=== PATIENT | female | born 1960 | race Caucasian/White ===

== ENCOUNTER 2022-07-19 16:28 | Inpatient (IN) | payer OTHER ==
--- OUTSIDE RECORDS SUMMARY | 2022-07-19 16:33 | XMS REPORT | Continuity of Care Document ---
:1960 Author Organization [facility] t Address [address] [place] [address] [address] [place] [address] Care Team Providers Name Role Phone Brock Toribio DO Primary Care Physician ARNEL GILL Attending Clinician Unavailable ARNEL GILL Attending Clinician Unavailable CORONA CASEY K.HJose Roberto Attending Clinician Unavailable Corona Casey MDHJose Roberto Attending Clinician Arnel Gill DO Attending Clinician GRACE WEBB Attending Clinician Unavailable Grace Webb MD Attending Clinician HERBERT RYDER Attending Clinician Unavailable CHRISTINE MOSES Attending Clinician Unavailable Christine Moses MD Attending Clinician Doctor Unassigned, [place] Attending Clinician Unavailable Brock Toribio DO Attending Clinician BROCK TORIBIO Attending Clinician Unavailable Pob, [facility] Main Attending Clinician Unavailable Manuel Barber MD Attending Clinician Shamika Crespo MA Attending Clinician Unavailable Renee Nichole Attending Clinician Unavailable 2, [facility] Attending Clinician Unavailable Therapist, [facility] Pulmonary Attending Clinician Unavailable Ganesh Hooker MD Attending Clinician GANESH HOOKER Attending Clinician Unavailable JESUS CLIFTON Attending Clinician Unavailable Herbert Ryder DO Attending Clinician Only, [facility] Test Attending Clinician Unavailable GRACE WEBB Admitting Clinician Unavailable CHRISTINE MOSES Admitting Clinician Unavailable Payers Payer Name Policy Type Policy Number Effective Date Expiration Date Rigoberto [facility] DUAL [id number] 2021 00:00:00 COMP HMO D SNP [facility] KALPESH [id number] 2016 00:00:00 PLUS Problems Condition Condition Condition Status Onset Resolution Last Treating Co mments Source Name Details Category Date Date Treatment Clinician Date Multifocal Multifocal Disease Active U nivers pneumonia pneumonia 4-28 ity of 00:00: [place] 00 Medical Branch Obesity Obesity Disease Active Univers (BMI (BMI 4-28 ity of 30-39.9) 30-39.9) 00:00: [place] 00 Medical Branch Pneumonia Pneumonia Disease Active Uni vers 4-20 ity of 00:00: [address] Allergies, Adverse Reactions, Alerts Allergy Allergy Status Severity Reaction(s) Onset Inactive Treating Comm ents Source Name Type Date Date Clinician NO KNOWN Drug Active Univers ALLERGIE Class ity of S [facility] Social History Social Habit Start Date Stop Date Quantity Comments Source History of tobacco Cigarette Smoker University of use [facility] Exposure to 2022-03-17 2022-03-27 Not sure [facility] SARS-CoV-2 (event) 00:00:00 13:42:00 [facility] Cigarettes smoked 2022-03-27 2022-03-27 Univers ity of current (pack per 00:00:00 00:00:00 ) - Reported Branch Cigarette 2022-03-27 2022-03-27 University of pack-years 00:00:00 00:00:00 [facility] Tobacco use and 2022-03-27 2022-03-27 Smokeless Universit y of exposure 00:00:00 00:00:00 tobacco non-user [facility] dical [place] Alcohol intake 2022-03-27 2022-03-27 Current University of 00:00:00 00:00:00 non-drinker of [facility] alcohol Branch (finding) Sex Ass[birth year] Universit y of 00:00:00 00:00:00 [facility] Smoking Status Start Date Stop Date Source Ex-smoker 2022-03-27 00:00:00 2022-03-27 00:00:00 [facility] Medical Branch Medications Ordered Filled Start Stop Current Ordering Indication Dosage Frequency Signature Comments Components Source Medication Medication Date Date Medication? Clinician (SIG) Name Name TINY 2021-05 Yes [id number] INHALE 1 Uni vers ELLIPTA 2-07 PUFF BY ity of 62.5-25 00:00: MOUTH [place] mcg/actuati 00 DAILY Medical on Branch inhalation disk Levothyroxi 2021-05 Yes 150ug Take 150 U nivers ne 150 mcg 1-23 mcg by ity of capsule 14:23: mouth [place] 49 daily. Medical Branch Levothyroxi 2021-05 Yes 150ug Take 150 U nivers ne 150 mcg 1-23 mcg by ity of capsule 14:23: mouth [place] 49 daily. Medical Branch Levothyroxi 2021-05 Yes 150ug Take 150 U nivers ne 150 mcg 1-23 mcg by ity of capsule 14:23: mouth [place] 49 daily. Medical Branch Levothyroxi 2021-05 Yes 150ug Take 150 U nivers ne 150 mcg 1-23 mcg by ity of capsule 14:23: mouth [place] 49 daily. Medical Branch losartan 50 2021-05 Yes [id number] 50mg Take 1 Univers mg tablet 1-23 tablet by ity o f 00:00: mouth in [place] 00 the Medical morning Branch and 1 tablet in the evening. bisoprolol 2021-05 Yes [id number] 5mg Take 1 U nivers 5 mg tablet 1-23 tablet by ity of 00:00: mouth in [place] 00 the Medical morning. Branch losartan 50 2021-05 Yes [id number] 50mg Take 1 Univers mg tablet 1-23 tablet by ity o f 00:00: mouth in [place] 00 the Medical morning Branch and 1 tablet in the evening. bisoprolol 2021-05 Yes [id number] 5mg Take 1 U nivers 5 mg tablet 1-23 tablet by ity of 00:00: mouth in [place] 00 the Medical morning. Branch losartan 50 2021-05 Yes [id number] 50mg Take 1 Univers mg tablet 1-23 tablet by ity o f 00:00: mouth in [place] 00 the Medical morning Branch and 1 tablet in the evening. bisoprolol 2021-05 Yes [id number] 5mg Take 1 U nivers 5 mg tablet 1-23 tablet by ity of 00:00: mouth in [place] 00 the Medical morning. Branch losartan 50 2021-05 Yes [id number] 50mg Take 1 Univers mg tablet 1-23 tablet by ity o f 00:00: mouth in [place] 00 the Medical morning Branch and 1 tablet in the evening. bisoprolol 2021-05 Yes [id number] 5mg Take 1 U nivers 5 mg tablet 1-23 tablet by ity of 00:00: mouth in [place] 00 the Medical morning. Branch losartan 50 2021-05 Yes [id number] TAKE 1 Univers mg tablet 0-24 TABLET BY ity o f 00:00: MOUTH [place] 00 TWICE Medical DAILY Branch losartan 50 2021-05 Yes [id number] TAKE 1 Univers mg tablet 0-24 TABLET BY ity o f 00:00: MOUTH [place] 00 TWICE Medical DAILY Branch losartan 50 2021-05 Yes [id number] TAKE 1 Univers mg tablet 0-24 TABLET BY ity o f 00:00: MOUTH [place] TWICE Medical DAILY Branch losartan 50 2021-05- No [id number] TAKE 1 Univers mg tablet 0-24 11-23 TABLET BY ity of 00:00: 00:00 MOUTH [place] 00 :00 TWICE Medical DAILY Branch losartan 50 2021-05- No [id number] TAKE 1 Univers mg tablet 0-24 11-23 TABLET BY ity of 00:00: 00:00 MOUTH [place] 00 :00 TWICE Medical DAILY Branch bisoprolol 2021-05 Yes [id number] 5mg TAKE 1 U nivers 5 mg tablet 0-12 TABLET BY ity of 00:00: [facility] DAILY Medical Branch bisoprolol 2021-05 Yes [id number] 5mg TAKE 1 U nivers 5 mg tablet 0-12 TABLET BY ity of 00:00: [facility] 00 DAILY Medical Branch bisoprolol 2021-05 Yes [id number] 5mg TAKE 1 U nivers 5 mg tablet 0-12 TABLET BY ity of 00:00: [facility] 00 DAILY Medical Branch bisoprolol 2021-05 Yes [id number] 5mg TAKE 1 U nivers 5 mg tablet 0-12 TABLET BY ity of 00:00: [facility] 00 DAILY Medical Branch bisoprolol 2021-05 Yes [id number] 5mg TAKE 1 U nivers 5 mg tablet 0-12 TABLET BY ity of 00:00: [facility] 00 DAILY Medical Branch bisoprolol 2021-2021- No [id number] 5mg TAKE 1 Univers 5 mg tablet 003-27 TABLET BY it y of 00:00: 00:00 MOUTH [place] 00 :00 DAILY Medical Branch bisoprolol 2021-2021- No [id number] 5mg TAKE 1 Univers 5 mg tablet 003-27 TABLET BY it y of 00:00: 00:00 MOUTH [place] 00 :00 DAILY Medical Branch Magnesium 2021-0 Yes TAKE 1 Univer s Oxide 500 8-31 TABLET BY ity o f mg Tab 00:00: MOUTH EVERY Medical NIGHT Branch Magnesium 2021-0 Yes TAKE 1 Univer s Oxide 500 8-31 TABLET BY ity o f mg Tab 00:00: MOUTH EVERY Medical NIGHT Branch Magnesium 2-0 Yes TAKE 1 Univer s Oxide 500 8-31 TABLET BY ity o f mg Tab 00:00: MOUTH EVERY Medical NIGHT Branch Magnesium 2-0 Yes TAKE 1 Univer s Oxide 500 8-31 TABLET BY ity o f mg Tab 00:00: MOUTH EVERY Medical NIGHT Branch ALBUTEROL 0 Yes [id number] INHALE 2 Univers 90 7-27 PUFFS BY ity of mcg/actuati 00:00: MOUTH on inhaler 00 EVERY 6 Medica l HOURS Branch NEEDED FOR WHEEZING OR SHORTNESS OF BREATH ALBUTEROL Yes [id number] INHALE 2 Univers 90 7-27 PUFFS BY ity of mcg/actuati 00:00: MOUTH on inhaler 00 EVERY 6 Medica l HOURS Branch NEEDED FOR WHEEZING OR SHORTNESS OF BREATH ALBUTEROL Yes [id number] INHALE 2 Univers 90 7-27 PUFFS BY ity of mcg/actuati 00:00: MOUTH on inhaler 00 EVERY 6 Medica l HOURS Branch NEEDED FOR WHEEZING OR SHORTNESS OF BREATH ALBUTEROL Yes [id number] INHALE 2 Univers 90 7-27 PUFFS BY ity of mcg/actuati 00:00: MOUTH [place] on inhaler 00 EVERY 6 Medica l HOURS Branch NEEDED FOR WHEEZING OR SHORTNESS OF BREATH ALBUTEROL Yes [id number] INHALE 2 Univers 90 7-27 PUFFS BY ity of mcg/actuati 00:00: MOUTH [place] on inhaler 00 EVERY 6 Medica l HOURS Branch NEEDED FOR WHEEZING OR SHORTNESS OF BREATH ALBUTEROL Yes [id number] INHALE 2 Univers 90 7-27 PUFFS BY ity of mcg/actuati 00:00: MOUTH [place] on inhaler 00 EVERY 6 Medica l HOURS Branch NEEDED FOR WHEEZING OR SHORTNESS OF BREATH ALBUTEROL Yes [id number] INHALE 2 Univers 90 7-27 PUFFS BY ity of mcg/actuati 00:00: MOUTH [place] on inhaler 00 EVERY 6 Medica l HOURS Branch NEEDED FOR WHEEZING OR SHORTNESS OF BREATH ALBUTEROL Yes [id number] INHALE 2 Univers 90 7-27 PUFFS BY ity of mcg/actuati 00:00: MOUTH [place] on inhaler 00 EVERY 6 Medica l HOURS Branch NEEDED FOR WHEEZING OR SHORTNESS OF BREATH ALBUTEROL Yes [id number] INHALE 2 Univers 90 7-27 PUFFS BY ity of mcg/actuati 00:00: MOUTH [place] on inhaler 00 EVERY 6 Medica l HOURS Branch NEEDED FOR WHEEZING OR SHORTNESS OF BREATH ALBUTEROL Yes [id number] INHALE 2 Univers 90 7-27 PUFFS BY ity of mcg/actuati 00:00: MOUTH [place] on inhaler 00 EVERY 6 Medica l HOURS Branch NEEDED FOR WHEEZING OR SHORTNESS OF BREATH BISOPROLOL Yes [id number] 5mg TAKE 1 U nivers 5 mg tablet 4-19 TABLET BY ity of 00:00: MOUTH 00 DAILY Medical Branch BISOPROLOL 2021-0 2021- No [id number] 5mg TAKE 1 Univers 5 mg tablet 4-19 10-12 TABLET BY it y of 00:00: 00:00 MOUTH [place] 00 :00 DAILY Medical Branch LOSARTAN 50 2021-0 Yes TAKE 1 Univ ers mg tablet 3-14 TABLET BY ity o f 00:00: MOUTH 00 TWICE Medical DAILY Branch LOSARTAN 50 2021-0 Yes TAKE 1 Univ ers mg tablet 3-14 TABLET BY ity o f 00:00: MOUTH 00 TWICE Medical DAILY Branch LOSARTAN 50 2021-0 Yes TAKE 1 Univ ers mg tablet 3-14 TABLET BY ity o f 00:00: MOUTH TWICE Medical DAILY Branch LOSARTAN 50 2021-0 2022- No TAKE 1 Uni vers mg tablet 3-14 10-24 TABLET BY ity of 00:00: 00:00 MOUTH [place] 00 :00 TWICE Medical DAILY Branch ANORO 2020- Yes [id number] INHALE 1 Uni vers ELLIPTA 1-17 PUFF BY ity of 62.5-25 00:00: MOUTH [place] mcg/actuati 00 DAILY Medical on Branch inhalation disk ANORO 2020-05 Yes [id number] INHALE 1 Uni vers ELLIPTA 1-17 PUFF BY ity of 62.5-25 00:00: MOUTH [place] mcg/actuati 00 DAILY Medical on Branch inhalation disk ANORO 2020-05 Yes [id number] INHALE 1 Uni vers ELLIPTA 1-17 PUFF BY ity of 62.5-25 00:00: MOUTH [place] mcg/actuati 00 DAILY Medical on Branch inhalation disk ANORO 2020-05 Yes [id number] INHALE 1 Uni vers ELLIPTA 1-17 PUFF BY ity of 62.5-25 00:00: MOUTH [place] mcg/actuati 00 DAILY Medical on Branch inhalation disk ANORO 2020-05 Yes [id number] INHALE 1 Uni vers ELLIPTA 1-17 PUFF BY ity of 62.5-25 00:00: MOUTH [place] mcg/actuati 00 DAILY Medical on Branch inhalation disk ANORO 2020-05 Yes [id number] INHALE 1 Uni vers ELLIPTA 1-17 PUFF BY ity of 62.5-25 00:00: MOUTH [place] mcg/actuati 00 DAILY Medical on Branch inhalation disk ANORO 2020- Yes [id number] INHALE 1 Uni vers ELLIPTA 1-17 PUFF BY ity of 62.5-25 00:00: MOUTH [place] mcg/actuati 00 DAILY Medical on Branch inhalation disk ANORO 2020-05 Yes [id number] INHALE 1 Uni vers ELLIPTA 1-17 PUFF BY ity of 62.5-25 00:00: MOUTH [place] mcg/actuati 00 DAILY Medical on Branch inhalation disk ANORO 2020-2021- No [id number] INHALE 1 Un [place] ELLIPTA 1-17 12-06 PUFF BY ity of 62.5-25 00:00: 00:00 MOUTH [place] mcg/actuati 00 :00 DAILY Medical on Branch inhalation disk ANORO 2020-05- No [id number] INHALE 1 Un [place] ELLIPTA 1-17 12-06 PUFF BY ity of 62.5-25 00:00: 00:00 MOUTH [place] mcg/actuati 00 :00 DAILY Medical on Branch inhalation disk ANORO 2020-05- No [id number] INHALE 1 Un [place] ELLIPTA 1-17 12-06 PUFF BY ity of 62.5-25 00:00: 00:00 MOUTH [place] mcg/actuati 00 :00 DAILY Medical on Branch inhalation disk bisoprolol 2020-05- No [id number] 5mg Take 1 Univers 5 mg tablet 0-29 04-19 tablet by it y of 00:00: 00:00 mouth [place] 00 :00 daily. Medical Branch losartan 50 2021- No 50mg Take 1 Uni vers mg tablet 01-15-14 tablet by ity of 00:00: 00:00 mouth 2 [place] 00 :00 (two) Medical times Branch daily. metFORMIN Yes 500mg Take 500 Uni vers 500 mg 8-19 mg by ity of tablet 13:54: mouth [place] daily. Medical Branch rosuvastati Yes 10mg Take 10 mg Univers n 10 mg 8-19 by mouth ity of tablet 13:54: at [place] [address] bedtime. Medical Branch Levothyroxi Yes 150ug Take 150 U nivers ne 150 mcg 8-19 mcg by ity of capsule 13:54: mouth [place] daily. Medical Branch buprenorphi Yes 8mg Place 8 mg Univers ne-naloxone 8-19 under the ity of (SUBOXONE) 13:54: tongue 2 [place] as 8-2 mg 01 (two) Medical sublingual times Branch film daily. aspirin 81 Yes 81mg Take 81 mg U nivers mg chewable 8-19 by mouth ity of tablet 13:54: daily. Medical Branch metFORMIN Yes 500mg Take 500 Uni vers 500 mg 8-19 mg by ity of tablet 13:54: mouth [place] daily. Medical Branch rosuvastati Yes 10mg Take 10 mg Univers n 10 mg 8-19 by mouth ity of tablet 13:54: at [place] 01 bedtime. Medical Branch Levothyroxi Yes 150ug Take 150 U nivers ne 150 mcg 8-19 mcg by ity of capsule 13:54: mouth [place] daily. Medical Branch buprenorphi 2021-[address] 8 mg Univers ne-naloxone 8-19 under the ity of (SUBOXONE) 13:54: tongue 2 [place] 8-2 mg (two) Medical sublingual times Branch film daily. aspirin 81 0 Yes 81mg Take 81 mg U nivers mg chewable 8-19 by mouth ity of tablet 13:54: daily. Medical Branch metFORMIN 0 Yes 500mg Take 500 Uni vers 500 mg 8-19 mg by ity of tablet 13:54: mouth [place] 01 daily. Medical Branch rosuvastati 0 Yes 10mg Take 10 mg Univers n 10 mg 8-19 by mouth ity of tablet 13:54: at [place] 01 bedtime. Medical Branch Levothyroxi 0 Yes 150ug Take 150 U nivers ne 150 mcg 8-19 mcg by ity of capsule 13:54: mouth [place] 01 daily. Medical Branch buprenorphi Yes 8mg Place 8 mg Univers ne-naloxone 8-19 under the ity of (SUBOXONE) 13:54: tongue 2 [place] as 8-2 mg (two) Medical sublingual times Branch film daily. aspirin 81 0 Yes 81mg Take 81 mg U nivers mg chewable 8-19 by mouth ity of tablet 13:54: daily. Medical Branch metFORMIN 0 Yes 500mg Take 500 Uni vers 500 mg 8-19 mg by ity of tablet 13:54: mouth [place] 01 daily. Medical Branch rosuvastati 0 Yes 10mg Take 10 mg Univers n 10 mg 8-19 by mouth ity of tablet 13:54: at [place] 01 bedtime. Medical Branch Levothyroxi 0 Yes 150ug Take 150 U nivers ne 150 mcg 8-19 mcg by ity of capsule 13:54: mouth [place] 01 daily. Medical Branch buprenorphi [address] 8 mg Univers ne-naloxone 8-19 under the ity of (SUBOXONE) 13:54: tongue 2 [place] as 8-2 mg (two) Medical sublingual times Branch film daily. aspirin 81 0 Yes 81mg Take 81 mg U nivers mg chewable 8-19 by mouth ity of tablet 13:54: daily. Medical Branch metFORMIN 0 Yes 500mg Take 500 Uni vers 500 mg 8-19 mg by ity of tablet 13:54: mouth [place] 01 daily. Medical Branch rosuvastati Yes 10mg Take 10 mg Univers n 10 mg 8-19 by mouth ity of tablet 13:54: at [place] 01 bedtime. Medical Branch Levothyroxi Yes 150ug Take 150 U nivers ne 150 mcg 8-19 mcg by ity of capsule 13:54: mouth [place] 01 daily. Medical Branch buprenorphi Yes 8mg Place 8 mg Univers ne-naloxone 8-19 under the ity of (SUBOXONE) 13:54: tongue 2 [place] as 8-2 mg 01 (two) Medical sublingual times Branch film daily. aspirin 81 0 Yes 81mg Take 81 mg U nivers mg chewable 8-19 by mouth ity of tablet 13:54: daily. Medical Branch metFORMIN Yes 500mg Take 500 Uni vers 500 mg 8-19 mg by ity of tablet 13:54: mouth [place] 01 daily. Medical Branch rosuvastati Yes 10mg Take 10 mg Univers n 10 mg 8-19 by mouth ity of tablet 13:54: at [place] 01 bedtime. Medical Branch Levothyroxi Yes 150ug Take 150 U nivers ne 150 mcg 8-19 mcg by ity of capsule 13:54: mouth [place] 01 daily. Medical Branch buprenorphi Yes 8mg Place 8 mg Univers ne-naloxone 8-19 under the ity of (SUBOXONE) 13:54: tongue 2 [place] as 8-2 mg (two) Medical sublingual times Branch film daily. aspirin 81 0 Yes 81mg Take 81 mg U nivers mg chewable 8-19 by mouth ity of tablet 13:54: daily. Medical Branch metFORMIN Yes 500mg Take 500 Uni vers 500 mg 8-19 mg by ity of tablet 13:54: mouth [place] 01 daily. Medical Branch rosuvastati 0 Yes 10mg Take 10 mg Univers n 10 mg 8-19 by mouth ity of tablet 13:54: at [place] 01 bedtime. Medical Branch Levothyroxi Yes 150ug Take 150 U nivers ne 150 mcg 8-19 mcg by ity of capsule 13:54: mouth [place] 01 daily. Medical Branch buprenorphi [address] 8 mg Univers ne-naloxone 8-19 under the ity of (SUBOXONE) 13:54: tongue 2 [place] as 8-2 mg 01 (two) Medical sublingual times Branch film daily. aspirin 81 0 Yes 81mg Take 81 mg U nivers mg chewable 8-19 by mouth ity of tablet 13:54: daily. Medical Branch metFORMIN 0 Yes 500mg Take 500 Uni vers 500 mg 8-19 mg by ity of tablet 13:54: mouth [place] 01 daily. Medical Branch rosuvastati 0 Yes 10mg Take 10 mg Univers n 10 mg 8-19 by mouth ity of tablet 13:54: at [place] 01 bedtime. Medical Branch buprenorphi [address] 8 mg Univers ne-naloxone 8-19 under the ity of (SUBOXONE) 13:54: tongue 2 [place] as 8-2 mg 01 (two) Medical sublingual times Branch film daily. aspirin 81 0 Yes 81mg Take 81 mg U nivers mg chewable 8-19 by mouth ity of tablet 13:54: daily. Medical Branch metFORMIN 0 Yes 500mg Take 500 Uni vers 500 mg 8-19 mg by ity of tablet 13:54: mouth [place] 01 daily. Medical Branch rosuvastati 0 Yes 10mg Take 10 mg Univers n 10 mg 8-19 by mouth ity of tablet 13:54: at [place] 01 bedtime. Medical Branch buprenorphi [address] 8 mg Univers ne-naloxone 8-19 under the ity of (SUBOXONE) 13:54: tongue 2 [place] as 8-2 mg 01 (two) Medical sublingual times Branch film daily. aspirin 81 0 Yes 81mg Take 81 mg U nivers mg chewable 8-19 by mouth ity of tablet 13:54: daily. Medical Branch metFORMIN 0 Yes 500mg Take 500 Uni vers 500 mg 8-19 mg by ity of tablet 13:54: mouth [place] 01 daily. Medical Branch rosuvastati 0 Yes 10mg Take 10 mg Univers n 10 mg 8-19 by mouth ity of tablet 13:54: at [place] 01 bedtime. Medical Branch buprenorphi Yes 8mg Place 8 mg Univers ne-naloxone 8-19 under the ity of (SUBOXONE) 13:54: tongue 2 [place] as 8-2 mg (two) Medical sublingual times Branch film daily. aspirin 81 0 Yes 81mg Take 81 mg U nivers mg chewable 8-19 by mouth ity of tablet 13:54: daily. Medical Branch metFORMIN 0 Yes 500mg Take 500 Uni vers 500 mg 8-19 mg by ity of tablet 13:54: mouth [place] 01 daily. Medical Branch rosuvastati Yes 10mg Take 10 mg Univers n 10 mg 8-19 by mouth ity of tablet 13:54: at [place] bedtime. Medical Branch buprenorphi Yes 8mg Place 8 mg Univers ne-naloxone 8-19 under the ity of (SUBOXONE) 13:54: tongue 2 [place] as 8-2 mg (two) Medical sublingual times Branch film daily. aspirin 81 0 Yes 81mg Take 81 mg U nivers mg chewable 8-19 by mouth ity of tablet 13:54: daily. Medical Branch Cholecalcif Yes Take by Uni vers sowmya, 5-06 mouth. ity of Vitamin D3, 13:49: [place] ,000 unit 27 Medical capsule Branch Cholecalcif Yes Take by Uni vers sowmya, 5-06 mouth. ity of Vitamin D3, 13:49: [place] ,000 unit 27 Medical capsule Branch Cholecalcif 0 Yes Take by Uni vers sowmya, 5-06 mouth. ity of Vitamin D3, 13:49: [place] 5,000 unit 27 Medical capsule Branch Cholecalcif 0 Yes Take by Uni vers sowmya, 5-06 mouth. ity of Vitamin D3, 08:49: [place] 5,000 unit 27 Medical capsule Branch Cholecalcif 0 Yes Take by Uni vers sowmya, 5-06 mouth. ity of Vitamin D3, 08:49: [place] 5,000 unit 27 Medical capsule Branch Cholecalcif 0 Yes Take by Uni vers sowmya, 5-06 mouth. ity of Vitamin D3, 08:49: [place] 5,000 unit 27 Medical capsule Branch Cholecalcif 0 Yes Take by Uni vers sowmya, 5-06 mouth. ity of Vitamin D3, 08:49: [place] 5,000 unit 27 Medical capsule Branch Cholecalcif 0 Yes Take by Uni vers sowmya, 5-06 mouth. ity of Vitamin D3, 08:49: [place] 5,000 unit 27 Medical capsule Branch Cholecalcif 0 Yes Take by Uni vers sowmya, 5-06 mouth. ity of Vitamin D3, 08:49: [place] 5,000 unit 27 Medical capsule Branch Cholecalcif 0 Yes Take by Uni vers sowmya, 5-06 mouth. ity of Vitamin D3, 08:49: [place] 5,000 unit 27 Medical capsule Branch Cholecalcif 0 Yes Take by Uni vers sowmya, 5-06 mouth. ity of Vitamin D3, 08:49: [place] 5,000 unit 27 Medical capsule Branch Cholecalcif 0 Yes Take by Uni vers sowmya, 5-06 mouth. ity of Vitamin D3, 08:49: [place] 5,000 unit 27 Medical capsule Branch Cholecalcif 0 Yes Take by Uni vers sowmya, 5-06 mouth. ity of Vitamin D3, 08:49: [place] 5,000 unit 27 Medical capsule Branch Cholecalcif 0 Yes Take by Uni vers sowmya, 5-06 mouth. ity of Vitamin D3, 08:49: [place] 5,000 unit 27 Medical capsule Branch albuterol 0 Yes Stage 4 2{puff} Inhale 2 Univers (PROAIR 3-25 very severe Puffs ity of HFA) 90 00:00: [place] by every 6 [place] mcg/actuati 00 GOLD (six) Medical on inhaler classificat hours as Branch ion needed for Wheezing or Shortness of Breath. albuterol 2020-0 Yes Stage 4 2{puff} Inhale 2 Univers (PROAIR 3-25 very severe Puffs ity of HFA) 90 00:00: [place] by every 6 [place] mcg/actuati 00 GOLD (six) Medical on inhaler classificat hours as Branch ion needed for Wheezing or Shortness of Breath. albuterol 2020-0 Yes Stage 4 2{puff} Inhale 2 Univers (PROAIR 3-25 very severe Puffs ity of HFA) 90 00:00: [place] by every 6 [place] mcg/actuati 00 GOLD (six) Medical on inhaler classificat hours as Branch ion needed for Wheezing or Shortness of Breath. albuterol 2021- No [id number] 2{puff} Inhale 2 Univers (PROAIR 3-25 07-27 Puffs ity of HFA) 90 00:00: 00:00 every 6 [place] mcg/actuati 00 :00 (six) Medical on inhaler hours as Branc h needed for Wheezing or Shortness of Breath. umeclidiniu 2019-05 Yes Stage 4 1{puff} Inhale 1 Univers m-vilantero 1-12 very severe Puff i ty of L (ANORO 00:00: [place] by daily. [place] ELLIPTA) 00 GOLD Medical 62.5-25 classificat Branc h mcg/actuati ion on inhalation disk umeclidiniu 2019-05 Yes Stage 4 1{puff} Inhale 1 Univers m-vilantero 1-12 very severe Puff i ty of L (AN[place]O 00:00: [place] daily. [place] ELLIPTA) 00 GOLD Medical 62.5-25 classificat Branc h mcg/actuati ion on inhalation disk umeclidiniu 2019-05 Yes Stage 4 1{puff} Inhale 1 Univers m-vilantero 1-12 very severe Puff i ty of L (AN[place]O 00:00: [place] daily. [place] ELLIPTA) 00 GOLD Medical 62.5-25 classificat Branc h mcg/actuati ion on inhalation disk metFORMIN 2020-0 Yes 500mg Take 500 Uni vers 500 mg 7-23 mg by ity of tablet 17:52: mouth 2 [place] 10 (two) Medical times Branch daily with meals. rosuvastati 2020-0 Yes 10mg Take 10 mg Univers n 10 mg 7-23 by mouth ity of tablet 17:52: at [place] 10 bedtime. Medical Branch metoprolol 2020-0 Yes 25mg Take 25 mg U nivers tartrate 25 7-23 by mouth 2 it y of mg tablet 17:52: (two) [place] 10 times Medical daily. Branch Levothyroxi 2020-0 Yes 150ug Take 150 U nivers ne 150 mcg 7-23 mcg by ity of capsule 17:52: mouth [place] 10 daily. Medical Branch aspirin 81 2020-0 Yes 81mg Take 81 mg U nivers mg chewable 7-23 by mouth ity of tablet 17:52: daily. [place] [address] Medical Branch metFORMIN 2020-0 Yes 500mg Take 500 Uni vers 500 mg 7-23 mg by ity of tablet 17:52: mouth 2 [place] 10 (two) Medical times Branch daily with meals. rosuvastati 2020-0 Yes 10mg Take 10 mg Univers n 10 mg 7-23 by mouth ity of tablet 17:52: at [place] 10 bedtime. Medical Branch metoprolol 2020-0 Yes 25mg Take 25 mg U nivers tartrate 25 7-23 by mouth 2 it y of mg tablet 17:52: (two) [place] 10 times Medical daily. Branch Levothyroxi 2020-0 Yes 150ug Take 150 U nivers ne 150 mcg 7-23 mcg by ity of capsule 17:52: mouth [place] 10 daily. Medical Branch aspirin 81 2020-0 Yes 81mg Take 81 mg U nivers mg chewable 7-23 by mouth ity of tablet 17:52: daily. [place] [address] Medical Branch metFORMIN 2020-0 Yes 500mg Take 500 Uni vers 500 mg 7-23 mg by ity of tablet 17:52: mouth 2 [place] 10 (two) Medical times Branch daily with meals. rosuvastati 2020-0 Yes 10mg Take 10 mg Univers n 10 mg 7-23 by mouth ity of tablet 17:52: at [place] 10 bedtime. Medical Branch metoprolol 2020-0 Yes 25mg Take 25 mg U nivers tartrate 25 7-23 by mouth 2 it y of mg tablet 17:52: (two) [place] 10 times Medical daily. Branch Levothyroxi 2020-0 Yes 150ug Take 150 U nivers ne 150 mcg 7-23 mcg by ity of capsule 17:52: mouth [place] 10 daily. Medical Branch aspirin 81 2020-0 Yes 81mg Take 81 mg U nivers mg chewable 7-23 by mouth ity of tablet 17:52: daily. [place] [id number] Medical Branch buprenorphi 2020-[address] 8 mg Univers ne-naloxone 7-23 under the ity of (SUBOXONE) 17:50: tongue 2 [place] as 8-2 mg 35 (two) Medical sublingual times Branch film daily. buprenorphi 2020-[address] 8 mg Univers ne-naloxone 7-23 under the ity of (SUBOXONE) 17:50: tongue 2 [place] as 8-2 mg 35 (two) Medical sublingual times Branch film daily. buprenorphi Yes 8mg Place 8 mg Univers ne-naloxone 7-23 under the ity of (SUBOXONE) 17:50: tongue 2 [place] as 8-2 mg 35 (two) Medical sublingual times Branch film daily. divalproex 2019-2020- No 250mg Take 250 U nivers ER 250 mg 5-26 05-27 mg by ity of 24 hr 00:00: 04:59 mouth. [place] tablet 00 :00 Medical Branch divalproex 2019-0 2020- No 250mg Take 250 U nivers ER 250 mg 5-26 05-27 mg by ity of 24 hr 00:00: 04:59 mouth. [place] tablet 00 :00 Medical Branch divalproex 2020- No 250mg Take 250 U nivers ER 250 mg 5-26 05-27 mg by ity of 24 hr 00:00: 04:59 mouth. [place] tablet 00 :00 Medical Branch Immunizations Ordered Filled Immunization Date Status Comments [facility] e Immunization Name Name SARS-COV-2 COVID-19 2021-06-26 Completed Unive rsity of PFIZER SARAH-SUCROSE 00:00:00 [place] [facility] VACCINE (PADILLA TOP) Branch SARS-COV-2 COVID-19 2021-06-26 Completed Unive rsity of PFIZER SARAH-SUCROSE 00:00:00 [place] [facility] VACCINE (PADILLA TOP) Branch SARS-COV-2 COVID-19 2021-06-26 Completed Unive rsity of PFIZER SARAH-SUCROSE 00:00:00 [place] [facility] VACCINE (PADILLA TOP) Branch SARS-COV-2 COVID-19 2021-06-26 Completed Unive rsity of PFIZER SARAH-SUCROSE 00:00:00 [place] [facility] VACCINE (PADILLA TOP) Branch SARS-COV-2 COVID-19 2021-06-26 Completed Unive rsity of PFIZER SARAH-SUCROSE 00:00:00 [place] [facility] VACCINE (PADILLA TOP) Branch SARS-COV-2 COVID-19 2021-06-26 Completed Unive rsity of PFIZER SARAH-SUCROSE 00:00:00 [place] [facility] VACCINE (PADILLA TOP) Branch SARS-COV-2 COVID-19 2021-06-26 Completed Unive rsity of PFIZER SARAH-SUCROSE 00:00:00 [place] [facility] VACCINE (PADILLA TOP) Branch SARS-COV-2 COVID-19 2021-06-26 Completed Unive rsity of PFIZER SARAH-SUCROSE 00:00:00 [place] [facility] VACCINE (PADILLA TOP) Branch SARS-COV-2 COVID-19 2021-06-26 Completed Unive rsity of PFIZER SARAH-SUCROSE 00:00:00 [place] [facility] VACCINE (PADILLA TOP) Branch SARS-COV-2 COVID-19 2021-06-26 Completed Unive rsity of PFIZER SARAH-SUCROSE 00:00:00 [place] [facility] VACCINE (PADILLA TOP) Branch SARS-COV-2 COVID-19 2021-06-26 Completed Unive rsity of PFIZER SARAH-SUCROSE 00:00:00 [place] [facility] VACCINE (PADILLA TOP) Branch SARS-COV-2 COVID-19 2020-08-17 Completed Unive rsity of PFIZER VACCINE 00:00:00 [place] [facility] Branch SARS-COV-2 COVID-19 2020-08-17 Completed Unive rsity of PFIZER VACCINE 00:00:00 [place] [facility] Branch SARS-COV-2 COVID-19 2020-08-17 Completed Unive rsity of PFIZER VACCINE 00:00:00 [place] [facility] Branch SARS-COV-2 COVID-19 2020-08-17 Completed Unive rsity of PFIZER VACCINE 00:00:00 [place] [facility] Branch SARS-COV-2 COVID-19 2020-08-17 Completed Unive rsity of PFIZER VACCINE 00:00:00 [place] [facility] Branch SARS-COV-2 COVID-19 2020-08-17 Completed Unive rsity of PFIZER VACCINE 00:00:00 [place] [facility] [place] [facility] SARS-COV-2 COVID-19 2020-08-17 Completed Unive rsity of PFIZER VACCINE 00:00:00 [place] [facility] Branch SARS-COV-2 COVID-19 2020-08-17 Completed Unive rsity of PFIZER VACCINE 00:00:00 [place] [facility] Branch SARS-COV-2 COVID-19 2020-08-17 Completed Unive rsity of PFIZER VACCINE 00:00:00 [place] [facility] Branch SARS-COV-2 COVID-19 2020-08-17 Completed Unive rsity of PFIZER VACCINE 00:00:00 [place] [facility] Branch SARS-COV-2 COVID-19 2020-08-17 Completed Unive rsity of PFIZER VACCINE 00:00:00 [facility] Branch SARS-COV-2 COVID-19 2020-08-17 Completed Unive rsity of PFIZER VACCINE 00:00:00 [place] [facility] Branch SARS-COV-2 COVID-19 2020-08-17 Completed Unive rsity of PFIZER VACCINE 00:00:00 [facility] Branch SARS-COV-2 COVID-19 2020-08-17 Completed Unive rsity of PFIZER VACCINE 00:00:00 [facility] Branch SARS-COV-2 COVID-19 2020-07-27 Completed Unive rsity of PFIZER VACCINE 00:00:00 [facility] Branch SARS-COV-2 COVID-19 2020-07-27 Completed Unive rsity of PFIZER VACCINE 00:00:00 [facility] Branch SARS-COV-2 COVID-19 2020-07-27 Completed Unive rsity of PFIZER VACCINE 00:00:00 [facility] Branch SARS-COV-2 COVID-19 2020-07-27 Completed Unive rsity of PFIZER VACCINE 00:00:00 [facility] Branch SARS-COV-2 COVID-19 2020-07-27 Completed Unive rsity of PFIZER VACCINE 00:00:00 [facility] Branch SARS-COV-2 COVID-19 2020-07-27 Completed Unive rsity of PFIZER VACCINE 00:00:00 [facility] Branch SARS-COV-2 COVID-19 2020-07-27 Completed Unive rsity of PFIZER VACCINE 00:00:00 [facility] Branch SARS-COV-2 COVID-19 2020-07-27 Completed Unive rsity of PFIZER VACCINE 00:00:00 [facility] Branch SARS-COV-2 COVID-19 2020-07-27 Completed Unive rsity of PFIZER VACCINE 00:00:00 [facility] Branch SARS-COV-2 COVID-19 2020-07-27 Completed Unive rsity of PFIZER VACCINE 00:00:00 [facility] Branch SARS-COV-2 COVID-19 2020-07-27 Completed Unive rsity of PFIZER VACCINE 00:00:00 [facility] Branch SARS-COV-2 COVID-19 2020-07-27 Completed Unive rsity of PFIZER VACCINE 00:00:00 [facility] Branch SARS-COV-2 COVID-19 2020-07-27 Completed Unive rsity of PFIZER VACCINE 00:00:00 [facility] SARS-COV-2 COVID-19 2020-07-27 Completed Unive rsity of PFIZER VACCINE 00:00:00 [facility] Influenza Virus 2019-02-12 Completed Universit y of Vaccine 00:00:00 [facility] Influenza Virus 2019-02-12 Completed Universit y of Vaccine (3+ yrs) 00:00:00 [facility] Branch Pneumococcal 13 2019-02-12 Completed Universit y of Conjugate, PCV13 00:00:00 [facility] (Prevnar 13) Branch Influenza Virus 2019-02-12 Completed Universit y of Vaccine 00:00:00 [facility] Influenza Virus 2019-02-12 Completed Universit y of Vaccine (3+ yrs) 00:00:00 [facility] Pneumococcal 13 2019-02-12 Completed Universit y of Conjugate, PCV13 00:00:00 [facility] (Prevnar 13) Branch Influenza Virus 2019-02-12 Completed Universit y of Vaccine 00:00:00 [facility] Influenza Virus 2019-02-12 Completed Universit y of Vaccine (3+ yrs) 00:00:00 [facility] Pneumococcal 13 2019-02-12 Completed Universit y of Conjugate, PCV13 00:00:00 [facility] (Prevnar 13) Branch Influenza Virus 2019-02-12 Completed Universit y of Vaccine 00:00:00 [facility] Influenza Virus 2019-02-12 Completed Universit y of Vaccine (3+ yrs) 00:00:00 [facility] Pneumococcal 13 2019-02-12 Completed Universit y of Conjugate, PCV13 00:00:00 [facility] (Prevnar 13) Branch Influenza Virus 2019-02-12 Completed Universit y of Vaccine 00:00:00 [facility] Influenza Virus 2019-02-12 Completed Universit y of Vaccine (3+ yrs) 00:00:00 [facility] Pneumococcal 13 2019-02-12 Completed Universit y of Conjugate, PCV13 00:00:00 [facility] dical (Prevnar 13) [place] Influenza Virus 2019-02-12 Completed Universit y of Vaccine 00:00:00 [facility] Influenza Virus 2019-02-12 Completed Universit y of Vaccine (3+ yrs) 00:00:00 [facility] Branch Pneumococcal 13 2019-02-12 Completed Universit y of Conjugate, PCV13 00:00:00 [facility] (Prevnar 13) Branch Influenza Virus 2019-02-12 Completed Universit y of Vaccine 00:00:00 [facility] Influenza Virus 2019-02-12 Completed Universit y of Vaccine (3+ yrs) 00:00:00 [facility] Branch Pneumococcal 13 2019-02-12 Completed Universit y of Conjugate, PCV13 00:00:00 [facility] (Prevnar 13) Branch Influenza Virus 2019-02-12 Completed Universit y of Vaccine 00:00:00 [facility] Influenza Virus 2019-02-12 Completed Universit y of Vaccine (3+ yrs) 00:00:00 [facility] Branch Pneumococcal 13 2019-02-12 Completed Universit y of Conjugate, PCV13 00:00:00 [facility] (Prevnar 13) Branch Influenza Virus 2019-02-12 Completed Universit y of Vaccine 00:00:00 [facility] Influenza Virus 2019-02-12 Completed Universit y of Vaccine (3+ yrs) 00:00:00 [facility] Branch Pneumococcal 13 2019-02-12 Completed Universit y of Conjugate, PCV13 00:00:00 [facility] (Prevnar 13) Branch Influenza Virus 2019-02-12 Completed Universit y of Vaccine 00:00:00 [facility] Influenza Virus 2019-02-12 Completed Universit y of Vaccine (3+ yrs) 00:00:00 [facility] Branch Pneumococcal 13 2019-02-12 Completed Universit y of Conjugate, PCV13 00:00:00 [facility] (Prevnar 13) Branch Influenza Virus 2019-02-12 Completed Universit y of Vaccine 00:00:00 [facility] Influenza Virus 2019-02-12 Completed Universit y of Vaccine (3+ yrs) 00:00:00 [facility] Branch Pneumococcal 13 2019-02-12 Completed Universit y of Conjugate, PCV13 00:00:00 [facility] (Prevnar 13) Branch Influenza Virus 2019-02-12 Completed Universit y of Vaccine 00:00:00 [facility] Influenza Virus 2019-02-12 Completed Universit y of Vaccine (3+ yrs) 00:00:00 [facility] Branch Pneumococcal 13 2019-02-12 Completed Universit y of Conjugate, PCV13 00:00:00 [facility] dical (Prevnar 13) Branch Influenza Virus 2019-02-12 Completed Universit y of Vaccine 00:00:00 [facility] Influenza Virus 2019-02-12 Completed Universit y of Vaccine (3+ yrs) 00:00:00 [facility] Branch Pneumococcal 13 2019-02-12 Completed Universit y of Conjugate, PCV13 00:00:00 [facility] dical (Prevnar 13) Branch Influenza Virus 2019-02-12 Completed Universit y of Vaccine 00:00:00 [facility] Influenza Virus 2019-02-12 Completed Universit y of Vaccine (3+ yrs) 00:00:00 [facility] Branch Pneumococcal 13 2019-02-12 Completed Universit y of Conjugate, PCV13 00:00:00 [facility] dical (Prevnar 13) [place] Influenza Virus 2018-01-03 Completed Universit y of Vaccine 00:00:00 [facility] Influenza Virus 2018-01-03 Completed Universit y of Vaccine 00:00:00 [facility] Influenza Virus 2018-01-03 Completed Universit y of Vaccine 00:00:00 [facility] Influenza Virus 2018-01-03 Completed Universit y of Vaccine 00:00:00 [facility] Influenza Virus 2018-01-03 Completed Universit y of Vaccine 00:00:00 [facility] Influenza Virus 2018-01-03 Completed Universit y of Vaccine 00:00:00 [facility] Influenza Virus 2018-01-03 Completed Universit y of Vaccine 00:00:00 [facility] Influenza Virus 2018-01-03 Completed Universit y of Vaccine 00:00:00 [facility] Influenza Virus 2018-01-03 Completed Universit y of Vaccine 00:00:00 [facility] Influenza Virus 2018-01-03 Completed Universit y of Vaccine 00:00:00 [facility] Influenza Virus 2018-01-03 Completed Universit y of Vaccine 00:00:00 [facility] Influenza Virus 2018-01-03 Completed Universit y of Vaccine 00:00:00 [facility] Influenza Virus 2018-01-03 Completed Universit y of Vaccine 00:00:00 [facility] Influenza Virus 2018-01-03 Completed Universit y of Vaccine 00:00:00 [facility] Influenza High Dose 2014-04-05 Completed Unive rsity of 00:00:00 [facility] Influenza High Dose 2014-04-05 Completed Unive rsity of 00:00:00 [facility] Influenza High Dose 2014-04-05 Completed Unive rsity of 00:00:00 [facility] Influenza High Dose 2014-04-05 Completed Unive rsity of 00:00:00 [facility] Influenza High Dose 2014-04-05 Completed Unive rsity of 00:00:00 [facility] Influenza High Dose 2014-04-05 Completed Unive rsity of 00:00:00 [facility] Influenza High Dose 2014-04-05 Completed Unive rsity of 00:00:00 [facility] Influenza High Dose 2014-04-05 Completed Unive rsity of 00:00:00 [facility] Influenza High Dose 2014-04-05 Completed Unive rsity of 00:00:00 [facility] Influenza High Dose 2014-04-05 Completed Unive rsity of 00:00:00 [facility] Influenza High Dose 2014-04-05 Completed Unive rsity of 00:00:00 [facility] Influenza High Dose 2014-04-05 Completed Unive rsity of 00:00:00 [facility] Influenza High Dose 2014-04-05 Completed Unive rsity of 00:00:00 [facility] Influenza High Dose 2014-04-05 Completed Unive rsity of 00:00:00 [facility] Vital Signs Vital Name Observation Time Observation Value Comments Source Systolic blood 2022-03-27 123 mm[Hg] University of pressure 20:24:00 [facility] Diastolic blood 2022-03-27 77 mm[Hg] [place] o f pressure 20:24:00 [facility] Heart rate 2022-03-27 86 /min University of 20:24:00 [facility] Body temperature 2022-03-27 35.28 Shital University of 20:24:00 [facility] Respiratory rate 2022-03-27 16 /min University of 20:24:00 [facility] Body height 2022-03-27 170.2 cm University of 20:24:00 [facility] Body weight 2022-03-27 78.109 kg University of 20:24:00 [facility] BMI 2022-03-27 26.97 kg/m2 University of 20:24:00 [facility] Oxygen saturation 2022-03-27 91 /min [facility] in Arterial blood 20:24:00 [facility] Pulse oximetry Branch Systolic blood 2021-06-26 157 mm[Hg] University of pressure 19:20:00 [facility] Diastolic blood 2021-06-26 98 mm[Hg] University o f pressure 19:20:00 [facility] Heart rate 2021-06-26 80 /min University of 19:20:00 [facility] Body temperature 2021-06-26 36.83 Shital University of 19:19:00 [facility] Respiratory rate 2021-06-26 20 /min University 19:19:00 [facility] Body height 2021-06-26 172.7 cm University of 19:19:00 [facility] Body weight 2021-06-26 80.196 kg University of 19:19:00 [facility] BMI 2021-06-26 26.88 kg/m2 University of 19:19:00 [facility] Oxygen saturation 2021-06-26 98 /min [facility] in Arterial blood 19:19:00 [place] [facility] [place] by Pulse oximetry Branch Systolic blood 2020-09-07 140 mm[Hg] manual; reports University of pressure 13:30:00 not taking BP [place] [facility] this [place] morning Diastolic blood 2020-09-07 97 mm[Hg] manual; reports Universit y of pressure 13:30:00 not taking BP [place] [facility] meds this [place] morning Heart rate 2020-09-07 132 /min University of 13:30:00 [facility] Respiratory rate 2020-09-07 20 /min University 13:30:00 [facility] Body weight 2020-09-07 81.738 kg University of 13:30:00 [facility] BMI 2020-09-07 28.22 kg/m2 University of 13:30:00 [facility] Oxygen saturation 2020-09-07 100 /min on 2 l/m [place] [facility] in Arterial blood 13:30:00 con't [place] [facility] [place] by Pulse oximetry Branch Procedures Procedure Date / Time Performing Clinician Source Performed HB ECG ROUTINE & RHYTHM 2022-03-27 20:29:26 Corona Casey [facility] Medical Branch BI DIAGNOSTIC 2022-01-29 14:45:00 Grace Webb [facility] TOMOSYNTHESIS BILATERAL Medical [place] Plan of Care Planned Activity Planned Date Details Comments Source Future Scheduled 2021-03-16 Depression screening [facility] [place] Test 00:00:00 (procedure) [code = Medical Branch [id number]] Future Scheduled 2021-03-16 Depression screening [facility] [place] Test 00:00:00 (procedure) [code = Medical Branch [id number]] Future Scheduled 2021-03-16 Depression screening [facility] [place] Test 00:00:00 (procedure) [code = Medical Branch [id number]] Future Scheduled 2021-01-03 INFLUENZA VACCINE [facility] [place] Test 00:00:00 (Season Ended) [code = Medic al Branch INFLUENZA VACCINE (Season Ended)] Future Scheduled 2021-01-03 INFLUENZA VACCINE [facility] [place] Test 00:00:00 (Season Ended) [code = Medic al Branch INFLUENZA VACCINE (Season Ended)] Future Scheduled 2021-01-03 INFLUENZA VACCINE [facility] [place] Test 00:00:00 (Season Ended) [code = Medic al Branch INFLUENZA VACCINE (Season Ended)] Future Scheduled 2019-04-09 PNEUMOCOCCAL 0-64 [facility] [place] Test 00:00:00 YEARS COMBINED SERIES Medica l Branch (1 of 1 - PPSV23) [code = PNEUMOCOCCAL 0-64 YEARS COMBINED SERIES (1 of 1 - PPSV23)] Future Scheduled 2019-04-09 PNEUMOCOCCAL 0-64 [facility] [place] Test 00:00:00 YEARS COMBINED SERIES Medica l Branch (1 of 1 - PPSV23) [code = PNEUMOCOCCAL 0-64 YEARS COMBINED SERIES (1 of 1 - PPSV23)] Future Scheduled 2019-04-09 PNEUMOCOCCAL 0-64 [facility] [place] Test 00:00:00 YEARS COMBINED SERIES Medica l Branch (1 of 1 - PPSV23) [code = PNEUMOCOCCAL 0-64 YEARS COMBINED SERIES (1 of 1 - PPSV23)] Future Scheduled 2008-01-02 Screening for occult [facility] [place] Test 00:00:00 blood in feces Medical Branc h (procedure) [code = 185862275] Future Scheduled 2008-01-02 [facility] cancer Medical Br anch screening (procedure) [code = 297878436131328] Future Scheduled 2008-01-02 [facility] [place] [facility]:00 sigmoidoscopy Medical Branch (procedure) [code = 32329816] Future Scheduled 2008-01-02 Screening for University [facility] Test 00:00:00 malignant neoplasm of Medica l Branch colon (procedure) [code = 538821999] Future Scheduled 2008-01-02 Screening for [facility] [place] Test 00:00:00 malignant neoplasm of Medica l Branch colon (procedure) [code = 947210368] Future Scheduled 2008-01-02 [facility] [place] [facility]:00 Vaccine (SHINGRIX) (1 Medica l Branch of 2) [code = Zoster Recombinant Vaccine (SHINGRIX) (1 of 2)] Future Scheduled 2008-01-02 Screening for occult [facility] [place] Test 00:00:00 blood in feces Medical Branc h (procedure) [code = 531028469] Future Scheduled 2008-01-02 Stool DNA-based [facility] Test 00:00:00 colorectal cancer Medical Br anch screening (procedure) [code = 275250240841832] Future Scheduled 2008-01-02 [facility] sigmoidoscopy Medical Branch (procedure) [code = 17397403] Future Scheduled 2008-01-02 Screening for University [facility] Test 00:00:00 malignant neoplasm of Medica l Branch colon (procedure) [code = 328542674] Future Scheduled 2008-01-02 Screening for University [facility] Test 00:00:00 malignant neoplasm of Medica l Branch colon (procedure) [code = 249234769] Future Scheduled 2008-01-02 [facility] Vaccine (SHINGRIX) (1 Medica l Branch of 2) [code = Zoster Recombinant Vaccine (SHINGRIX) (1 of 2)] Future Scheduled 2008-01-02 Screening for occult [facility] [place] Test 00:00:00 blood in feces Medical Branc h (procedure) [code = 985192434] Future Scheduled 2008-01-02 Stool DNA-based Universi [facility] Test 00:00:00 colorectal cancer Medical Br anch screening (procedure) [code = 550931406251048] Future Scheduled 2008-01-02 [facility]00 sigmoidoscopy Medical Branch (procedure) [code = 37750029] Future Scheduled 2008-01-02 Screening for University [facility] Test 00:00:00 malignant neoplasm of Medica l Branch colon (procedure) [code = 046827460] Future Scheduled 2008-01-02 Screening for [facility] Test 00:00:00 malignant neoplasm of Medica l Branch colon (procedure) [code = 962406437] Future Scheduled 2008-01-02 Zoster Recombinant Unive [facility] Test 00:00:00 Vaccine (SHINGRIX) (1 Medica l Branch of 2) [code = Zoster Recombinant Vaccine (SHINGRIX) (1 of 2)] Future Scheduled 1998 Screening for [facility] Test 00:00:00 malignant neoplasm of Medica l Branch breast (procedure) [code = 770294849] Future Scheduled 1998 Screening for [facility] Test 00:00:00 malignant neoplasm of Medica l Branch breast (procedure) [code = 672210242] Future Scheduled 1998 Screening for [facility] Test 00:00:00 malignant neoplasm of Medica l Branch breast (procedure) [code = 968295240] Future Scheduled 1979 Screening for [facility] Test 00:00:00 malignant neoplasm of Medica l Branch cervix (procedure) [code = 681288150] Future Scheduled 1979 Screening for [facility] Test 00:00:00 malignant neoplasm of Medica l Branch cervix (procedure) [code = 820959210] Future Scheduled 1979 Screening for [facility] Test 00:00:00 malignant neoplasm of Medica l Branch cervix (procedure) [code = 998058274] Future Scheduled 1977 DTaP,Tdap,and Td Univers ity [facility] Test 00:00:00 Vaccines (1 - Tdap) Medical Branch [code = DTaP,Tdap,and Td Vaccines (1 - Tdap)] Future Scheduled 1977 DTaP,Tdap,and Td Univers ity [facility] Test 00:00:00 Vaccines (1 - Tdap) Medical Branch [code = DTaP,Tdap,and Td Vaccines (1 - Tdap)] Future Scheduled 1977 DTaP,Tdap,and Td Univers ity [facility] Test 00:00:00 Vaccines (1 - Tdap) Medical Branch [code = DTaP,Tdap,and Td Vaccines (1 - Tdap)] Future Scheduled 1976-01-02 Hepatitis C screening [facility] Test 00:00:00 (procedure) [code = Medical Branch [id number]] Future Scheduled 1976-01-02 Hepatitis C screening [facility] [place] Test 00:00:00 (procedure) [code = Medical Branch 912049227] Future Scheduled 1976-01-02 Hepatitis C screening [facility] [place] Test 00:00:00 (procedure) [code = Medical Branch [id number]] Encounters Start End Encounter Admission Attending Care Care Encounter Source Date/Time Date/Time Type Type Clinicians Facility Department ID 2022-04-15 2022-04-15 Outpatient R ARNEL GILL [facility] 10 [id number] Univers 11:00:00 11:00:00 ARNEL GILL i ty of [facility] 2022-04-09 2022-04-09 [facility] CENTER 1.2.840.114 [id number] Univers 00:00:00 00:00:00 Corona URBINA 350.1.13.10 ity [facility] [place] [phone] [address] 2022-04-09 2022-04-09 [facility] 1.2.840.114 [id number] Univers 00:00:00 00:00:00 Arnel URBINA 350.1.13.10 i ty of [place] [phone] Ar dicvt NAL 085 [facility] 2022-03-27 2022-03-27 Outpatient R JACINTO MOMADAI [facility] [id number] Univers 14:00:00 14:51:10 SENDIL ity of [facility] 2022-03-27 2022-03-27 Office Jacinto [facility] 1.2.840.114 [id number] Univers 14:00:00 14:51:10 Visit Corona URBINA 350.1.13.10 ity [facility] [place] [phone] [facility] NAL [address] [place] [address] 2022-03-10 2022-03-10 Refill [facility] 1.2.840.114 [id number] Univers 00:00:00 00:00:00 Sendil Erich MAZATON 350.1.13.10 ity of [place] [phone] [facility] NAL 9 [facility] 2022-03-08 2022-03-08 Critical access hospital 1.2.193.263 [id number] Univers 00:00:00 00:00:00 Arnel URBINA 350.1.13.10 i ty [facility] [place] [phone] [facility] 085 [facility] 2022-02-24 2022-02-24 [facility] 1.2.840.114 [id number] Univers 00:00:00 00:00:00 Corona MAZATON 350.1.13.10 ity of [facility] 4.2.[place].2.[place] [phone] [facility] NAL [address] [place] [address] 2022-02-13 2022-02-13 [facility] 1.2.840.114 [id number] Univers 00:00:00 00:00:00 Corona URBINA 350.1.13.10 ity of [facility] 4.2.7.2.[place] [phone] [address] 2022-02-11 2022-02-11 [facility] 1.2.840.114 [id number] Univers 00:00:00 00:00:00 Corona URBINA 350.1.13.10 ity of [facility] 4.2.[place].2.[place] [phone] [address] 2022-01-29 2022-01-29 [facility] [id number] Univers 08:29:10 23:59:00 GRACE ity of [facility] 2022-01-29 2022-01-29 [facility] 1.2.840.114 [id number] Univers 08:29:10 23:59:00 Encounter Grace MAZATON 350.1.13.10 ity of [place] 4.2.7.2.686 [phone] [address] 2021-12-25 2021-12-25 [facility] 1.2.840.114 [id number] Univers 12:52:16 23:59:00 Encounter Grace MAZATON 350.1.13.10 ity of [place] 4.2.7.2.686 [facility] [phone] [address] 2021-12-25 2021-12-25 Outpatient R [facility] [id number] Univers 00:00:00 23:59:00 [facility] 2021-12-25 2021-12-25 Outpatient R [facility] [id number] Univers 13:15:00 13:15:00 [facility] 2021-11-28 2021-11-28 Refarleen [facility]UN[facility] 1.2.840.114 [id number] Univers 00:00:00 00:00:00 Arnel URBINA 350.1.13.10 i ty of [place].2.[place] [phone] [address] 2021-10-04 2021-10-04 Telemedici GillUN[facility] 1.2.840.114 [id number] Univers 12:00:00 12:30:00 ne Visit Ana Laurareneetigist URBINA 350.1.13.10 ity of [place] 4.2.7.2.[place] [phone] Ar dical NAL [address] [place] [address] 2021-10-04 2021-10-04 Outpatient R ARNEL GILL [facility] 10 [id number] Univers 12:00:00 12:00:00 ARNEL GILL i ty [facility] 2021-08-18 2021-08-18 Ivis CaseyUN[facility] 1.2.840.114 [id number] Univers 00:00:00 00:00:00 Corona URBINA 350.1.13.10 ity of [facility] 4.2.7.2.[place] [phone] Ar dicjocelyn NAL 9 [facility] 2021-07-20 2021-07-20 Telephone [facility]UN[facility] 1.2.902.684 [id number] Univers 00:00:00 00:00:00 Corona URBINA 350.1.13.10 ity of [facility] 4.2.7.2.[place] [phone] Ar dical NAL 9 [facility] 2021-07-16 2021-07-16 Refill [facility] 1.2.840.114 [id number] Univers 00:00:00 00:00:00 Corona URBINA 350.1.13.10 ity of [place] 4[place].2.[place] [phone] Ar dicvt NAL [address] [place] [address] 2021-06-26 2021-06-26 Outpatient Chelsey RYDER [facility] [id number] Univers 14:00:00 14:00:00 [facility] 2021-06-26 2021-06-26 Outpatient Chelsey RYDER [facility] [id number] Univers 14:00:00 13:48:18 [facility] 2021-06-26 2021-06-26 Office [facility] 1.2.022.379 [id number] Univers 13:00:00 13:27:44 Visit Grace URBINA 350.1.13.10 i ty of [facility] 4.2.7.2.[place] [phone] [facility] 419 [facility] 2021-06-26 2021-06-26 Outpatient R TRACEY [facility] [id number] Univers 13:00:00 13:27:44 [facility] 2021-06-19 2021-06-19 Outpatient Chelsey MOSES [facility] [id number] Univers 10:11:38 23:59:00 CHRISTINE caren [facility] 2021-06-19 2021-06-19 [facility]liaUN[facility] 1.2.840.114 [id number] Univers 10:11:38 23:59:00 Encounter Christine URBINA 350.1.13.10 ity of [place] 4.2.7.2.686 [facility] [phone] [facility] [address] 2021-06-15 2021-06-15 [facility] [id number] Univers 16:15:00 16:15:00 CHRISTINE ity of [facility] 2021-06-12 2021-06-12 Henry [facility]UN[facility] 1.2.840.114 [id number] Univers 00:00:00 00:00:00 Management Christine HEALTH 350.1.13.10 ity of [place] 4.2.7.2.686 [facility] - [phone] Med ical [facility] [address] 2021-06-04 2021-06-04 Orders Doctor MOE 1.2.840.114 [id number] Univers 00:00:00 00:00:00 Only Unassigned, EVAN 350.1.13.10 ity of [place] [facility] 4.2.7.2.686 [facility] [id number] [facility] [address] 2021-05-29 2021-05-29 [facility] 1.2.632.369 [id number] Univers 08:15:43 23:59:00 Encounter Brock Claudio CARLITOS 350.1.13.10 ity of [facility] 4.2.7.2.686 [facility] [phone] [facility] [address] 2021-05-29 2021-05-29 Outpatient R CATARINO [facility] [id number] Univers 08:12:09 08:14:00 BROCK ity of [facility] 2021-05-29 2021-05-29 [facility] 1.2.409.386 [id number] Univers 08:12:09 08:14:00 Encounter Brock Claudio CARLITOS 350.1.13.10 ity of [place] 4.2.7.2.686 [facility] [phone] [facility] [address] 2021-05-23 2021-05-23 Telephone [facility]UN[facility] 1.2.130.088 [id number] Univers 00:00:00 00:00:00 Arnel URBINA 350.1.13.10 i ty of [place] 4.[place].2.[place] [phone] Ar dical NAL 085 [facility] 2021-04-26 2021-04-26 Outpatient R ARNEL GILL [facility] 10 [id number] Univers 14:30:00 14:30:00 ARNEL GILL i ty of [facility] 2021-04-26 2021-04-26 Outpatient R ARNEL GILL [facility] 10 [id number] Univers 14:10:00 14:10:00 ARNEL GILL i ty of [facility] 2021-03-26 2021-03-26 [facility] [id number] Univers 13:19:05 23:59:00 BROCK ity [facility] 2021-03-26 2021-03-26 [facility] 1.2.081.300 [id number] Univers 13:19:05 23:59:00 Encounter Brock URBINA 350.1.13.10 ity of [place].2.7.2.[place] [phone] [facility] [address] 2021-03-26 2021-03-26 Legal Job Titles Star, Adc Lab Main [facility] 1.2.8 40.114 [id number] Univers 14:06:33 14:21:33 Visit Manuel Barber 350.1.13.10 ity of [place].2.[place].2.[place] [phone] Ar dical NAL 353 [facility] 2021-03-26 2021-03-26 Out[facility] [id number] Univers 13:40:00 13:40:00 [facility] 2021-03-20 2021-03-20 Refill [facility]UN[facility] 1.2.840.114 [id number] Univers 00:00:00 00:00:00 Arnel URBINA 350.1.13.10 i ty of [place] 4.[place].7.2.[place] [phone] Ar dicvt NAL [address] [facility] 2021-03-02 2021-03-02 Patient Casey, [facility] 1.2.840.114 [id number] Univers 00:00:00 00:00:00 Secure Msg Sendheber URBINA 350.1.13.10 ity of [place].7.2.[place] [phone] Ar dicvt NAL [address] [facility] 2021-03-01 2021-03-01 Patient Casey, [facility] 1.2.840.114 [id number] Univers 00:00:00 00:00:00 Secure Msg Sendheber BashirHJose Roberto URBINA 350.1.13.10 ity of [place].2.[place] [phone] Ar dicvt NAL 059 [facility] 2021-01-25 2021-01-25 Patient Casey, [facility] 1.2.840.114 [id number] Univers 00:00:00 00:00:00 Secure Msg Corona BashirHJose Roberto URBINA 350.1.13.10 ity of [place] 4.[place].7.2.[place] [phone] Ar dicvt NAL 9 [facility] 2021-01-17 2021-01-17 Orders Doctor MOE 1.2.840.114 [id number] Univers 00:00:00 00:00:00 Only Unassigned, EVAN 350.1.13.10 ity of [place] [facility] 4.2.7.2.686 Constantino as [phone] [facility] [address] 2021-01-15 2021-01-15 Patient Casey, [facility] 1.2.840.114 [id number] Univers 00:00:00 00:00:00 Secure Msg Sendil [facility]. [facility] 350.1.13.10 ity of [place] 4.2.7.2.[place] [phone] [facility] [address] [facility] 2020-12-22 2020-12-22 Patient Cherie, [facility] 1.2.840.114 [id number] Univers 00:00:00 00:00:00 Secure Msg Jessh R Linden 350.1.13.10 ity of [place]2.7.2.[place] [phone] Ar dical nal 059 [facility] 2020-12-22 2020-12-22 Patient Cherie, [facility] 1.2.840.114 [id number] Univers 00:00:00 00:00:00 Secure Msg Shamika R Linden 350.1.13.10 ity of [place].2.[place] [phone] Ar dical nal 059 [facility] 2020-12-21 2020-12-21 Office Sasha [facility] 1.2.840.114 [id number] Univers 13:46:54 14:30:16 Visit Arnel Urbina 350.1.13.10 i ty of [place] 4[place]2.7.2.686 [place] [phone] Ar dical nal 085 [facility] 2020-12-21 2020-12-21 Outpatient R ARNEL GILL [facility] 10 [id number] Univers 14:00:00 14:00:00 ARNEL GILL i ty of [facility] 2020-12-21 2020-12-21 Telephone [facility] 1.2.802.474 [id number] Univers 00:00:00 00:00:00 Renee Urbina 350.1.13.10 i ty of [place] 4[place]2.7.2.[place] [phone] Ar dical nal 296 [facility] 2020-12-21 2020-12-21 Orders Doctor MOE 1.2.840.114 [id number] Univers 00:00:00 00:00:00 Only Unassigned, EVAN 350.1.13.10 ity of [place] [facility] 4.2.7.2.686 Constant[place] as [phone] [address] 2020-10-27 2020-10-27 Outpatient R ARNEL GILL [facility] 10 [id number] Univers 11:00:00 11:00:00 ARNEL GILL i ty [facility] 2020-10-26 2020-10-26 Legal Job Titles 2, Adc Lab [facility] 1.2.840.114 [id number] Univers 13:56:46 14:11:46 Visit Corona Casey 350.1.13. 10 ity of [place].2.[place] [phone] [facility] [address] Building 2020-10-26 2020-10-26 Office Jacinto [facility] 1.2.840.114 [id number] Univers 12:46:45 13:48:54 Visit Corona Urbina 350.1.13.10 ity of [place].2.[place] [phone] [facility] 059 [facility] 2020-10-26 2020-10-26 Outpatient R JACINTO [facility] [id number] Univers 13:00:00 13:00:00 SENDIL bibiana [facility] 2020-10-11 2020-10-11 Outpatient R JACINTO [facility] [id number] Univers 13:00:00 13:00:00 SENDIL bibiana [facility] 2020-10-05 2020-10-05 Orders Doctor MOE 1.2.840.114 [id number] Univers 00:00:00 00:00:00 Only Unassigned, EVAN 350.1.13.10 ity of [place] [facility] 4.2.7.2.686 Constantino as [phone] [place] [address] [address] 2020-09-20 2020-09-20 Outpatient R CATARINO [facility] [id number] Univers 00:00:00 00:00:00 BROCK mccarty [facility] 2020-09-19 2020-09-19 Patient Jacinto [facility] 1.2.840.114 [id number] Univers 00:00:00 00:00:00 Secure Msg Corona BashirHJose Roberto [facility] 350.1.13.10 ity of [place]2.7.2.686 [place] Ring [phone] [address] Office Building 2020-09-14 2020-09-14 Office Jacinto [facility] 1.2.840.114 [id number] Univers 09:20:03 10:42:05 Visit Corona Urbina 350.1.13.10 ity of [place] 4[place].2.[place] [phone] Ar dical nal 059 [facility] 2020-09-14 2020-09-14 Outpatient R JACINTO [facility] [id number] Univers 09:30:00 09:30:00 [facility] 2020-09-12 2020-09-12 Telephone Sasha [facility] 1.2.417.695 [id number] Univers 00:00:00 00:00:00 Arnel Urbina 350.1.13.10 i ty of [place].2.[place] [phone] Ar dicvt nal 085 [facility] 2020-09-07 2020-09-07 Outpatient R MORRO [facility] [id number] Univers 08:30:00 08:30:00 GANESH [facility] 2020-09-07 2020-09-07 Orders Doctor MOE 1.2.840.114 [id number] Univers 00:00:00 00:00:00 Only Unassigned, EVAN 350.1.13.10 ity of [place] [facility] 4.2.7.2.686 Constantino as [phone] [address] 2020-08-17 2020-08-17 Outpatient Chelsey CLIFTON [facility] [id number] Univers 14:00:00 14:00:00 JESUS ity [facility] 2020-07-27 2020-07-27 Outpatient Chelsey CLIFTON [facility] [id number] Univers 14:20:00 14:20:00 JESUS [facility] 2020-07-27 2020-07-27 Office [facility] 1.2.840.114 [id number] Univers 13:07:09 14:10:00 Visit Arnel Urbina 350.1.13.10 i ty of [place] 4[place].2.[place] [phone] Ar dical nal 085 [facility] 2020-07-27 2020-07-27 Outpatient R ARNEL GILL [facility] 10 [id number] Univers 13:30:00 13:30:00 ARNEL GILL i ty of [facility] 2020-07-20 2020-07-20 Outpatient R ANA LAURA GILLFLTigist [facility] 10 [id number] Univers 09:00:00 09:00:00 ARNEL GILL i ty of [facility] 2020-07-11 2020-07-11 Patient [facility] 1.2.840.114 [id number] Univers 00:00:00 00:00:00 Outreach Herbert VISHAL 350.1.13.10 i ty of [facility] 4.2.7.2.[place] [phone] Ar dicvt [address] 2020-03-16 2020-03-16 Office Sasha [facility] 1.2.840.114 [id number] Univers 15:08:57 15:28:57 Visit Arnel Urbina 350.1.13.10 i ty of [place] 4.2.7.2.686 [place] [phone] Ar dical nal 085 [facility] 2020-03-16 2020-03-16 Outpatient R ARNEL GILL [facility] 10 [id number] Univers 15:20:00 15:20:00 ARNEL GILL i ty of [facility] 2020-03-03 2020-03-03 Orders Doctor ROSA 1.2.840.114 [id number] Univers 00:00:00 00:00:00 Only Unassigned, EVAN 350.1.13.10 ity of [place] [facility] 4.2.7.2.686 [place] as [phone] [address] 2020-03-02 2020-03-02 Outpatient R ARNEL GILL [facility] 10 [id number] Univers 14:20:00 14:20:00 ARNEL GILL i ty of [facility] 2020-02-17 2020-02-17 Orders Doctor ROSA 1.2.840.114 [id number] Univers 00:00:00 00:00:00 Only Unassigned, EVAN 350.1.13.10 ity of [place] [facility] 4.2.7.2.686 Constantino as [phone] [facility] [place] [address] 2020-02-07 2020-02-07 Telephone Sasha [facility] 1.2.254.474 [id number] Univers 00:00:00 00:00:00 Arnel Urbina 350.1.13.10 i ty of [place] 4[place]2.7.2.686 [place] [facility] [phone] Ar dical nal 085 [facility] 2020-02-03 2020-02-03 Outpatient R HOOKER, [facility] [id number] Univers 12:30:00 12:30:00 GANESH ity of [facility] 2020-01-31 2020-01-31 Laboratory Only, Adc Test [facility] 1.2.840. 114 [id number] Univers 12:22:33 12:37:33 Only Arnel Gill 350.1.13.10 ity of [place] 4.[place].7.2.686 [place] [phone] [address] 2020-01-31 2020-01-31 Outpatient R ARNEL GILL [facility] 10 [id number] Univers 12:15:00 12:15:00 ARNEL GILL i ty of [facility] 2020-01-27 2020-01-27 Outpatient R ARNEL GILL [facility] 10 [id number] Univers 10:00:00 10:00:00 ARNEL GILL i ty of [facility] 2020-01-27 2020-01-27 Outpatient R ANA LAURA GILLFLTigist [facility] 10 [id number] Univers 10:00:00 10:00:00 ARNEL GILL i ty of [facility] 2020-01-27 2020-01-27 Orders Doctor ROSA 1.2.840.114 [id number] Univers 00:00:00 00:00:00 Only Unassigned, EVAN 350.1.13.10 ity of [place] [facility] 4.2.7.2.686 Constantino as [phone] [address] 2019-12-16 2019-12-16 Telephone Sasha [facility] 1.2.003.461 [id number] Univers 00:00:00 00:00:00 Arnel Urbina 350.1.13.10 i ty of [place].7.2.[place] [phone] [address] 2019-11-26 2019-11-26 Telephone Sasha [facility] 1.2.958.588 [id number] Univers 00:00:00 00:00:00 Arnel Urbina 350.1.13.10 i ty of [place].7.2.[place] [phone] [address] 2019-11-25 2019-11-25 Office Sasha [facility] 1.2.840.114 [id number] Univers 12:29:21 14:02:54 Visit Ana Laurareneetigist MazaLinden 350.1.13.10 i ty of [place] 4.2.7.2.[place] [phone] [address] 2019-11-25 2019-11-25 Outpatient R ARNEL GILL [facility] 10 [id number] Univers 13:20:00 13:20:00 ARNEL GILL i ty of [facility] 2019-11-25 2019-11-25 Orders Doctor MOE 1.2.840.114 [id number] Univers 00:00:00 00:00:00 Only Unassigned, EVAN 350.1.13.10 ity of [place] [facility] 4.2.7.2.686 Constantino as [phone] [address] 2019-10-28 2019-10-28 Orders Doctor MOE 1.2.840.114 [id number] Univers 00:00:00 00:00:00 Only Unassigned, EVAN 350.1.13.10 ity of [place] [facility] 4.2.7.2.686 Constantino as [phone] [address] 2018-11-17 2018-11-17 Orders Doctor MOE 1.2.840.114 [id number] Univers 00:00:00 00:00:00 Only Unassigned, EVAN 350.1.13.10 ity of [place] [facility] 4.2.7.2.686 Constantino as [phone] Medi [place] [address] Results This patient has no known results.
[2022-07-19] MEDS ORDERED: NA CHLORIDE 0.9% 2,000 ML ONE (16:54)
[2022-07-19 17:08] LABS: Absolute Lymphocytes (CBC) 1.2 K/uL (0.7-4.9); Hematocrit 30.3 % (36.0-45.0); Lymphocytes % 10.2 % (15.3-44.8); MCV 98.4 fL (80-100); MPV 8.4 fL (7.6-11.3); RBC Red Blood Cell Count 3.08 M/uL (3.86-4.86)
--- NOTE | 2022-07-19 17:13 | RAD REPORT ---
EXAM DESCRIPTION: RAD - Chest Single View - 07/19/2022 5:07 pm CLINICAL HISTORY: COPD Chest pain. COMPARISON: CHEST SINGLE VIEW dated 02/03/2012 FINDINGS: Portable technique limits examination quality. Mild interstitial pulmonary edema. The heart is mildly enlarged. No displaced fractures. IMPRESSION: Mild CHF pattern.
[2022-07-19 17:20] LABS: Protime INR 1.18
[2022-07-19 17:25] LABS: Arterial Blood Carboxyhemoglob 0.9 % (0-1.5); Blood Gas Oxyhemoglobin 94.2 % (94-97); Blood O2 Saturation 96.1 % (92-98.5)
[2022-07-19] MEDS ORDERED: CEFTRIAXONE 1000 MG/VIAL ONE (17:29)
[2022-07-19 17:33] LABS: ALT/SGPT 41 U/L (13-56); AST/SGOT 70 U/L (15-37); Albumin 2.9 g/dL (3.4-5.0); Alkaline Phosphatase 145 U/L (45-117); BUN Blood Urea Nitrogen 13 mg/dL (7-18); Bicarbonate 28 mEq/L (21-32); Bilirubin Total 0.3 mg/dL (0.2-1.0); Glomerular Filtration Rate 72 ml/min (=/>90); Glucose Level 158 mg/dL (74-106); NT PRO-BNP 7634 pg/mL (<125); Potassium 3.5 mEq/L (3.5-5.1); Protein, Total 6.9 g/dL (6.4-8.2); Sodium Level 137 mEq/L (136-145); Thyroid Stimulating Hormone 0.095 uIU/mL (0.358-3.740)
[2022-07-19 17:56] LABS: Troponin High Sensitivity < 3.0 (<58.9)
[2022-07-19] MEDS ORDERED: NA CHLORIDE 0.9% 250 ML ONE ×2 (18:18→19:48)
[2022-07-19] MEDS ORDERED: LEVALBUTEROL 1.25 MG/3 ML NEB ONE ×2 (18:29→20:41)
[2022-07-19] MEDS ORDERED: dexAMETHasone 10 MG/ML VIAL ONE (18:29)
[2022-07-19 18:31] LABS: SARS-COV-2 RT PCR NEGATIVE (NEGATIVE)
[2022-07-19 19:07] LABS: Urine Blood Negative (Negative); Urine Glucose Negative (Negative); Urine Protein 2+ (Negative); Urine Specific Gravity >=1.030 (1.005-1.030)
--- NOTE | 2022-07-19 19:18 | RAD REPORT ---
EXAM DESCRIPTION: CT - Angio Aorta For Dissection - 07/19/2022 7:09 pm CLINICAL HISTORY: Chest pain radiating to the back. chest pain, dyspnea, pallor COMPARISON: No comparisons TECHNIQUE: CT angiography of the aorta was performed with MIPs. All CT scans are performed using dose optimization technique as appropriate and may include automated exposure control or mA/KV adjustment according to patient size. FINDINGS: A left aortic arch is present with normal branching pattern of the great vessels.No acute aortic finding is seen such as aneurysm, penetrating ulcer or dissection. The celiac axis, SMA, TASHA and renal arteries are patent. No evidence of pulmonary embolism. Moderate emphysema. Tree-in-bud opacity is present in the lingula and right middle lobe. This could r epresent ROBERTO infection. Diffuse fatty liver.The spleen, pancreas, adrenal glands and kidneys are within normal limits for art erial phase imaging.Mild gallbladder distension. No bowel obstruction, free fluid or abscess.No pathologic enlarged lymphadenopathy identified. Mild lumbar degenerative changes. IMPRESSION: No acute aortic finding is demonstrated. Moderate emphysema. Nonspecific gallbladder distension.
[2022-07-19 19:20] LABS: Urine Bacteria <20 /HPF (<20); Urine Crystals Unidentified Few /HPF (None Seen); Urine Mucus 1+ /HPF (None Seen); Urine RBC <5 /HPF (None Seen); Urine WBC Clump Rare /HPF (None Seen)
--- NOTE | 2022-07-19 19:34 | ER ---
Nurse's Notes [facility] Name: Glenna Doss Age: 62 yrs Sex: Female : 1960 Arrival Date: 07/19/2022 Time: 16:33 Bed 20 Private MD: Simon Harper Diagnosis: Severe sepsis with septic shock;Acute bronchitis due to Mycoplasma pneumoniae;COPD/ Chronic obstructive pulmonary disease with (acute) exacerbation Presentation: 07/19 16:35 Chief complaint: SOB and pain with breathing x 2 days. Has been having to turn up home hb O2 from 2LNC to 4LNC. Coronavirus screen: Client presents with at least one sign or symptom that may indicate coronavirus-19. Standard/surgical mask placed on the client. Provider contacted for isolation considerations. Ebola Screen: No symptoms or risks identified at this time. Risk Assessment: Do you want to hurt yourself or someone else? Patient reports no desire to harm self or others. Onset of symptoms was July 17, 2022. 16:35 Method Of Arrival: Wheelchair hb 16:35 Acuity: COLE 2 hb 19:30 Initial Sepsis Screen: Does the patient meet any 2 criteria? Yes Does the patient have ha1 a suspected source of infection? Yes: Productive cough/pneumonia. Historical: - Allergies: 16:37 No Known Allergies; hb - PMHx: 16:37 COPD; hb - Immunization history:: Adult Immunizations up to date. - Social history:: Smoking status: unknown. Screenin:45 [facility] ED Fall Risk Assessment (Adult) History of falling in the last 3 months, kc6 including since admission No falls in past 3 months (0 pts) Confusion or Disorientation No (0 pts) Intoxicated or Sedated No (0 pts) Impaired Gait No (0 pts) Mobility Assist Device Used No (0 pt) Altered Elimination No (0 pt) Score/Fall Risk Level 0 - 2 = Low Risk Oriented to surroundings, Maintained a safe environment, Educated pt \T\ family on fall prevention, incl call for assistance when getting out of bed, Assessed \T\ reinforced patient's understanding of fall precautions, Hourly rounding (assess needs \T\ fall precautionary measures) done. Abuse screen: Denies threats or abuse. Denies injuries from another. Nutritional screening: No deficits noted. Tuberculosis screening: No symptoms or risk factors identified. Assessment: 16:45 General: Appears distressed, uncomfortable, ill, Behavior is cooperative, appropriate kl for age, anxious, restless. Pain: Denies pain. Neuro: Kraus Agitation-Sedation Scale (RASS): +1 Restless Level of Consciousness is awake, alert, obeys commands, Oriented to person, place, time, situation, Appropriate for age. Cardiovascular: Heart tones S1 S2 present Capillary refill < 3 seconds Rhythm is sinus tachycardia. Respiratory: Reports shortness of breath at rest cough that is labored breathing Airway is patent Trachea midline Respiratory effort is even, unlabored, Respiratory pattern is symmetrical, tachypnea Breath sounds with wheezes bilaterally. GI: No signs and/or symptoms were reported involving the gastrointestinal system. : No signs and/or symptoms were reported regarding the genitourinary system. EENT: No signs and/or symptoms were reported regarding the EENT system. Derm: No signs and/or symptoms reported regarding the dermatologic system. Skin is intact, Skin is diaphoretic, Skin is pale, Skin temperature is warm. Musculoskeletal: No signs and/or symptoms reported regarding the musculoskeletal system. Circulation, motion, and sensation intact. Capillary refill < 3 seconds, Range of motion: intact in all extremities. 17:45 Reassessment: Patient appears in no apparent distress at this time. No changes from previously documented assessment. Patient and/or family updated on plan of care and expected duration. Pain level reassessed. 18:45 Reassessment: Patient appears in no apparent distress at this time. No changes from previously documented assessment. Patient and/or family updated on plan of care and expected duration. Pain level reassessed. 19:30 General: Appears uncomfortable, Behavior is cooperative, anxious. Pain: Denies pain. ha1 Neuro: Kraus Agitation-Sedation Scale (RASS): 0 - Alert and Calm Level of Consciousness is awake, alert, obeys commands, Oriented to person, place, time, situation. Cardiovascular: Heart tones S1 S2 present Capillary refill < 3 seconds Rhythm is sinus tachycardia. Respiratory: Airway is patent Trachea midline Respiratory effort is even, unlabored, Respiratory pattern is symmetrical, tachypnea Breath sounds with wheezes. GI: No signs and/or symptoms were reported involving the gastrointestinal system. : No signs and/or symptoms were reported regarding the genitourinary system. Derm: Skin is fragile, Skin is diaphoretic, Skin is pale, Skin temperature is warm. Musculoskeletal: Circulation, motion, and sensation intact. Range of motion: intact in all extremities. 20:30 Reassessment: Patient and/or family updated on plan of care and expected duration. Pain ha1 level reassessed. Patient is alert, oriented x 3, equal unlabored respirations, skin warm/dry/pink. 21:22 Reassessment: Patient and/or family updated on plan of care and expected duration. Pain ha1 level reassessed. Patient is alert, oriented x 3, equal unlabored respirations, skin warm/dry/pink. Patient states feeling better. Patient states symptoms have improved. 21:30 Reassessment: Patient reports SOB at rest. placed on tripod position and notified care ha1 provider immediately. increased Oxygen to 6 Liter as instructed by provider. 22:15 Reassessment: Patient and/or family updated on plan of care and expected duration. Pain ha1 level reassessed. Patient is alert, oriented x 3, equal unlabored respirations, skin warm/dry/pink. being transported to ICU Patient states feeling better. Patient states symptoms have improved. Vital Signs: 16:35 BP 84 / 67; Pulse 119; Resp 24; Temp 97.1; Pulse Ox 82% on R/A; Weight 77.11 kg; Height hb 5 ft. 7 in. ; Pain 4/10; 16:52 BP 90 / 68; Pulse 115; Resp 22 S; Pulse Ox 99% on 2 lpm NC; kc6 17:00 BP 85 / 66; Pulse 117; Resp 24; Pulse Ox 99% on 2 lpm NC; kc6 17:08 BP 82 / 67; Pulse 111; Resp 24; Pulse Ox 98% on 2 lpm NC; kc6 17:15 BP 79 / 61; Pulse 111; Resp 24; Pulse Ox 98% on 2 lpm NC; kc6 17:27 BP 105 / 76; Pulse 133; Resp 22; Pulse Ox 93% on 2 lpm NC; kc6 17:28 BP 97 / 78; Pulse 129; Resp 15; Pulse Ox 97% on 2 lpm NC; kc6 17:30 BP 103 / 83; Pulse 121; Resp 22; Pulse Ox 97% on 2 lpm NC; kc6 17:37 BP 106 / 67; Pulse 111; Resp 17; Pulse Ox 97% on 2 lpm NC; kc6 17:45 BP 113 / 73; Pulse 110; Resp 20; Pulse Ox 97% on 2 lpm NC; kc6 18:00 BP 102 / 70; Pulse 107; Resp 11; Pulse Ox 97% on 2 lpm NC; kc6 18:15 BP 109 / 67; Pulse 157; Resp 24; Pulse Ox 100% on 2 lpm NC; kc6 18:30 BP 101 / 86; Pulse 110; Resp 17 S; Pulse Ox 100% on 2 lpm NC; ha1 18:30 BP 101 / 86; Pulse 110; Resp 17; Pulse Ox 100% on 2 lpm NC; kc6 18:45 BP 116 / 95; Pulse 117; Resp 20; Pulse Ox 93% on 2 lpm NC; kc6 19:11 BP 102 / 65; kc6 19:15 BP 92 / 63; Pulse 111; Resp 22 S; Pulse Ox 96% on 2 lpm NC; ha1 19:30 BP 97 / 73; Pulse 110; Resp 22 S; Pulse Ox 100% on 2 lpm NC; ha1 19:48 BP 114 / 78; Pulse 113; Resp 23 S; Pulse Ox 93% on 2 lpm NC; ha1 20:50 BP 100 / 78; Pulse 111; Resp 23 S; Temp 99; Pulse Ox 96% on 2 lpm NC; ha1 21:30 BP 123 / 105; Pulse 138; Resp 33 S; Pulse Ox 82% on 6 lpm NC; ha1 21:40 BP 156 / 99; Pulse 110; Resp 25 S; Pulse Ox 99% on 6 lpm NC; ha1 22:15 BP 151 / 71; Pulse 131; Resp 25 S; Pulse Ox 96% on 6 lpm NC; ha1 16:35 Body Mass Index 26.63 (77.11 kg, 170.18 cm) hb 16:35 Pain Scale: Adult hb [place] Coma Score: 17:05 Eye Response: spontaneous(4). Motor Response: obeys commands(6). Verbal Response: snw oriented(5). Total: 15. ED Course: 16:33 Patient arrived in ED. mr 16:33 Simon Harper DO is Private Physician. mr 16:35 [facility] snw 16:35 Rc Watson MD is Attending Physician. snw 16:37 Triage completed. hb 16:37 Arm band placed on. hb 16:45 Patient has correct armband on for positive identification. Placed in gown. Bed in low kc6 position. Call light in reach. Side rails up X2. Adult w/ patient. 16:47 Gillian Mendes, RN is Primary Nurse. kc6 17:01 Inserted saline lock: 20 gauge in left antecubital area, using aseptic technique. Blood zm collected. 17:01 TSH Sent. zm 17:01 Inserted saline lock: 20 gauge in right EJ, using aseptic technique. ,using aseptic kl technique. inserted by [employer] Blood collected. 17:02 TS Sent. zm 17:02 Blood Culture Adult (2) Sent. zm 17:02 CBC with Diff Sent. zm 17:02 CMP Sent. zm 17:02 Lactate w/ 2H reflex if indic. Sent. zm 17:02 Protime (+inr) Sent. zm 17:02 Ptt, Activated Sent. zm 17:09 Chest Single View XRAY In Process Unspecified. EDMS 17:49 COVID-19/FLU A+B Sent. kc6 17:49 Flynn cath inserted, using sterile technique, 16 Fr., by nv, balloon inflated, to kc6 gravity drainage, clamped. urine specimen collected. returned clear yellow urine. Patient tolerated well. 19:11 CT Aorta for Dissection In Process Unspecified. EDMS 19:30 No provider procedures requiring assistance completed. IV discontinued. ha1 19:33 Brian Rodriguez MD is Hospitalizing Provider. snw 21:55 Inserted saline lock: 20 gauge in right upper arm, using aseptic technique. ,using ha1 aseptic technique. Mid line. inserted by care provider Jim. Administered Medications: 17:04 Drug: NS 0.9% IV (30 ml/kg) 2300 ml {Note: x 1 liter and 1liter per right EJ.} Route: snw IV; Rate: bolus; Site: left antecubital; 19:48 Follow up: Response: No adverse reaction; IV Status: Completed infusion; IV Intake: kc6 2300ml 17:48 Drug: Rocephin IV 1 grams Route: IV; Rate: calculated rate; Site: right jugular; kc6 19:47 Follow up: Response: No adverse reaction; IV Status: Completed infusion; IV Intake: [id number] 18:36 Drug: Levalbuterol Inhalation 1.25 mg Route: Inhalation; kc6 19:47 Follow up: Response: No adverse reaction kc6 18:36 Drug: Decadron - Dexamethasone IVP 10 mg Route: IVP; Site: right jugular; kc6 19:47 Follow up: Response: No adverse reaction kc6 19:40 Not Given (Physician Discretion): Zithromax IVPB 500 mg IVPB once over 1 hrs; mix in ha1 250 mL NS 20:08 Drug: vancoMYCIN IVPB 1.5 grams Route: IVPB; Rate: calculated rate; Site: right jugular;ha1 20:10 Drug: Levalbuterol Inhalation 1.25 mg Route: Inhalation; ha1 Medication: 21:18 VIS not applicable for this client. ha1 Intake: 19:47 IV: 10ml; Total: 10ml. kc6 19:48 IV: 2300ml; Total: 2310ml. kc6 Outcome: 19:34 Decision to Hospitalize by Provider. snw 21:17 Admitted to ICU accompanied by nurse, room 2, with oxygen, on monitor, with chart, [facility] Report called to SIMON Catherine 21:17 Condition: stable 21:17 Instructed on the need for admit, Demonstrated understanding of instructions. 22:15 Patient left the ED. kl Signatures: Dispatcher [employer] EDMS Nel Miles RN RN kl Waters, Shelly, GRAVEL ROOFERFelipeC GRAVEL ROOFER-Vicenta Gonzalez Ladonna Monreal RN RN hb Martinez, Zaina zm Ayala, Heidy, RN RN [facility] Gillian Mendes RN RN kc6 Corrections: (The following items were deleted from the chart) 16:38 16:35 BP 84 / 67; Pulse 119bpm; Resp 24bpm; Pulse Ox 86% RA; Temp 97.1F; 77.11 kg; hb Height 5 ft. 7 in.; BMI: 26.6; Pain 4/10, Adult; hb 22:44 21:30 Reassessment: Patient reports SOB at rest. placed on tripod position and notified [facility] care provider immediatly. ha1
--- NOTE | 2022-07-19 19:34 | EDPHYS ---
Physician Documentation [facility] Name: Glenna Doss Age: 62 yrs Sex: Female : 1960 Arrival Date: 07/19/2022 Time: 16:33 Bed 20 Private MD: Simon Harper ED Physician Rc Watson HPI: 07/19 17:14 This 62 yrs old Female presents to ER via Wheelchair with complaints of COPD snw Exacerbation. 17:14 Onset: The symptoms/episode began/occurred acutely, suddenly, and became worse just snw prior to arrival, and became persistent 2 days ago. Associated signs and symptoms: Pertinent positives: chest pain, congestion, cough, shortness of breath, diaphoresis. It is unknown whether or not the patient has had similar symptoms in the past. sees Dr. Harper and Dr. Carrero. Historical: - Allergies: 16:37 No Known Allergies; hb - PMHx: 16:37 COPD; hb - Immunization history:: Adult Immunizations up to date. - Social history:: Smoking status: unknown. ROS: 17:11 Eyes: Negative for injury, pain, redness, and discharge, ENT: Negative for injury, snw pain, and discharge, Neck: Negative for injury, pain, and swelling. 17:11 Abdomen/GI: Negative for abdominal pain, nausea, vomiting, diarrhea, and constipation. 17:11 : Negative for injury, bleeding, discharge, and swelling, MS/Extremity: Negative for injury and deformity, Skin: Negative for injury, rash, and discoloration, Neuro: Negative for headache, weakness, numbness, tingling, and seizure. 17:11 Constitutional: Positive for body aches, fatigue, malaise, poor PO intake. 17:11 Cardiovascular: Positive for chest pain, of the chest, radiates through to back. 17:11 Respiratory: Positive for dyspnea on exertion, orthopnea, shortness of breath, at rest. 17:11 Back: Positive for radiated pain. Exam: 17:05 Head/Face: Normocephalic, atraumatic. Eyes: Pupils equal round and reactive to light, snw extra-ocular motions intact. Lids and lashes normal. Conjunctiva and sclera are non-icteric and not injected. Cornea within normal limits. Periorbital areas with no swelling, redness, or edema. 17:05 Neck: Trachea midline, no thyromegaly or masses palpated, and no cervical lymphadenopathy. Supple, full range of motion without nuchal rigidity, or vertebral point tenderness. No Meningismus. Chest/axilla: Normal chest wall appearance and motion. Nontender with no deformity. No lesions are appreciated. 17:05 Abdomen/GI: Soft, non-tender, with normal bowel sounds. No distension or tympany. No guarding or rebound. No evidence of tenderness throughout. Back: No spinal tenderness. No costovertebral tenderness. Full range of motion. MS/ Extremity: Pulses equal, no cyanosis. Neurovascular intact. Full, normal range of motion. 17:05 Constitutional: The patient appears anxious, diaphoretic, in obvious distress, severely distressed, obviously ill, pale, uncomfortable. 17:05 ENT: External ear(s): are unremarkable, Nose: is normal, Mouth: Oral mucosa: dry, Voice: is normal. 17:05 Cardiovascular: Rate: tachycardic, Heart sounds: murmur, systolic, grade 3 over 6. 17:05 Respiratory: moderate respiratory distress is noted, severe repiratory distress is noted, Respirations: accessory muscle usage, pursed lip breathing, shallow respirations, tachypnea, Breath sounds: decreased breath sounds, that are severe, Respiratory rate: tachypnea at 24 17:05 Skin: Appearance: Color: dusky, pale, Moisture: dry, diaphoresis is noted. 17:05 Neuro: Mentation: is normal. Vital Signs: 16:35 BP 84 / 67; Pulse 119; Resp 24; Temp 97.1; Pulse Ox 82% on R/A; Weight 77.11 kg; Height hb 5 ft. 7 in. ; Pain 4/10; 16:52 BP 90 / 68; Pulse 115; Resp 22 S; Pulse Ox 99% on 2 lpm NC; kc6 17:00 BP 85 / 66; Pulse 117; Resp 24; Pulse Ox 99% on 2 lpm NC; kc6 17:08 BP 82 / 67; Pulse 111; Resp 24; Pulse Ox 98% on 2 lpm NC; kc6 17:15 BP 79 / 61; Pulse 111; Resp 24; Pulse Ox 98% on 2 lpm NC; kc6 17:27 BP 105 / 76; Pulse 133; Resp 22; Pulse Ox 93% on 2 lpm NC; kc6 17:28 BP 97 / 78; Pulse 129; Resp 15; Pulse Ox 97% on 2 lpm NC; kc6 17:30 BP 103 / 83; Pulse 121; Resp 22; Pulse Ox 97% on 2 lpm NC; kc6 17:37 BP 106 / 67; Pulse 111; Resp 17; Pulse Ox 97% on 2 lpm NC; kc6 17:45 BP 113 / 73; Pulse 110; Resp 20; Pulse Ox 97% on 2 lpm NC; kc6 18:00 BP 102 / 70; Pulse 107; Resp 11; Pulse Ox 97% on 2 lpm NC; kc6 18:15 BP 109 / 67; Pulse 157; Resp 24; Pulse Ox 100% on 2 lpm NC; kc6 18:30 BP 101 / 86; Pulse 110; Resp 17 S; Pulse Ox 100% on 2 lpm NC; ha1 18:30 BP 101 / 86; Pulse 110; Resp 17; Pulse Ox 100% on 2 lpm NC; kc6 18:45 BP 116 / 95; Pulse 117; Resp 20; Pulse Ox 93% on 2 lpm NC; kc6 19:11 BP 102 / 65; kc6 19:15 BP 92 / 63; Pulse 111; Resp 22 S; Pulse Ox 96% on 2 lpm NC; ha1 19:30 BP 97 / 73; Pulse 110; Resp 22 S; Pulse Ox 100% on 2 lpm NC; ha1 19:48 BP 114 / 78; Pulse 113; Resp 23 S; Pulse Ox 93% on 2 lpm NC; ha1 20:50 BP 100 / 78; Pulse 111; Resp 23 S; Temp 99; Pulse Ox 96% on 2 lpm NC; ha1 21:30 BP 123 / 105; Pulse 138; Resp 33 S; Pulse Ox 82% on 6 lpm NC; ha1 21:40 BP 156 / 99; Pulse 110; Resp 25 S; Pulse Ox 99% on 6 lpm NC; ha1 22:15 BP 151 / 71; Pulse 131; Resp 25 S; Pulse Ox 96% on 6 lpm NC; ha1 16:35 Body Mass Index 26.63 (77.11 kg, 170.18 cm) hb 16:35 Pain Scale: Adult hb [place] Coma Score: 17:05 Eye Response: spontaneous(4). Motor Response: obeys commands(6). Verbal Response: snw oriented(5). Total: 15. MDM: 16:58 Patient medically screened. kb 17:09 ED course: pt arrive in extremis, assisted to stretcher, 20g to left ac and 20g to snw right EJ placed, blood obtained for labs. NS bolus to each site begun.. 17:46 Differential diagnosis: bacterial infection, bronchitis, pneumonia COPD exacerbation, snw CHF. Data reviewed: vital signs, nurses notes. Consideration of Admission/Observation Patient was admitted/placed on observation. Counseling: I had a detailed discussion with the patient and/or guardian regarding: the historical points, exam findings, and any diagnostic results supporting the discharge/admit diagnosis, lab results. ED course: pt recovers temporarily and then blood pressure drops, heartrate increases, and pt gets anxious and has feeling of doom. Pt was positioned at about [address] a central line for two pressures below 90, pt bolted up right and had obvious wheezing and shortness of breath. Dr. Watson called to bedside to eval for IJ. Pt's pressure in left arm 79/61, right arm SBP>100. Discussed peripheral levophed for aortagram. Subsequent blood pressure readings bilaterally Sytolic >100. Will need US for Central line to right groin. Palpable pulse to left groin. Pt incrementally lowered to more supine position. Central line on hold. PIV boluses continue. Pt to have vasquez placed. Rocephin ordered.. 18:24 ED course: Episode of extreme SOB, feeling of doom, wheezing. Dr. Watson at [facility] bedside. ED course: Xopenex and decadron, repeat EKG ordered. 18:30 ED course: A= pneumonia, B=HR 124, RR, 24, C= lactate 3.1, Septic Shock as two snw pressures <90. 18:47 Post IV fluid administration reassessment for Sepsis: Client prescribed 30 mL/kg IVF. snw Sepsis focused reassessment complete. Heart: Tachycardia noted. Lungs: Wheezes noted. Skin examination performed. Skin noted to be pale. Current vital signs reviewed: Yes. Neuro: Neurological examination improved from previous exam. Cardio: remains tachycardic but less so at this time Respiratory: intermittent SOB with sense of doom. Response to treatment: the patient's symptoms have markedly improved after treatment. ED course: Pt in CT to r/o abdominal aneurysm or large PE. 19:27 Management of patient was discussed with the following: Hospitalist: Mare Farah. snw Discussed sepsis and abx to include Rocephin and Zithromax. Called Dr. Carrero re: consult. Message left on machine. I considered the following discharge prescriptions or medication management in the emergency department Medications were administered in the Emergency Department. See MAR. Historians other than the Patient: Daughter/Son: Daughter. Care significantly affected by the following chronic conditions: Chronic Obstructive Pulmonary Disease. Special discussion:. 07/19 16:39 Order name: Blood Culture Adult (2) snw 07/19 16:39 Order name: CBC with Diff; Complete Time: 17:20 snw 07/19 16:39 Order name: CMP; Complete Time: 17:57 snw 07/19 16:39 Order name: Lactate w/ 2H reflex if indic.; Complete Time: 17:28 snw 07/19 16:39 Order name: Protime (+inr); Complete Time: 17:20 snw 07/19 16:39 Order name: Ptt, Activated; Complete Time: 17:20 snw 07/19 16:39 Order name: Urine Culture snw 07/19 16:39 Order name: Urine Microscopic Only; Complete Time: 19:25 snw 07/19 16:39 Order name: ABG; Complete Time: 17:53 snw 07/19 16:39 Order name: TS; Complete Time: 17:53 snw 07/19 16:39 Order name: TSH; Complete Time: 17:57 snw 07/19 17:11 Order name: COVID-19/FLU A+B; Complete Time: 18:44 snw 07/19 17:14 Order name: Add On-Lab snw 07/19 17:23 Order name: Troponin High Sensitivity; Complete Time: 17:57 EDMS 07/19 17:23 Order name: NT PRO-BNP; Complete Time: 17:57 EDMS 07/19 17:23 Order name: Procalcitonin; Complete Time: 17:57 EDMS 07/19 17:41 Order name: SARS RAPID ss 07/19 19:07 Order name: Urine Dipstick-Ancillary; Complete Time: 19:09 EDMS 07/19 19:51 Order name: Hemoglobin; Complete Time: 20:29 snw 07/19 19:51 Order name: Hematocrit; Complete Time: 20:29 snw 07/19 21:22 Order name: Lactate Sepsis 2 HR Follow-up; Complete Time: 21:24 EDMS 07/19 21:23 Order name: ABO/RH no charge; Complete Time: 21:24 EDMS 07/19 16:39 Order name: Chest Single View XRAY; Complete Time: 17:20 snw 07/19 17:03 Order name: CT Aorta for Dissection; Complete Time: 19:19 snw 07/19 16:39 Order name: EKG; Complete Time: 16:40 snw 07/19 18:21 Order name: EKG; Complete Time: 18:22 snw 07/19 16:39 Order name: Accucheck; Complete Time: 17:21 snw 07/19 16:39 Order name: Cardiac monitoring; Complete Time: 17:05 snw 07/19 16:39 Order name: Cath; Complete Time: 18:01 snw 07/19 16:39 Order name: EKG - Nurse/Tech; Complete Time: 17:21 snw 07/19 16:39 Order name: IV Saline Lock - Large Bore; Complete Time: 17:02 snw 07/19 16:39 Order name: Labs collected and sent; Complete Time: 17:02 snw 07/19 16:39 Order name: O2 Per Protocol; Complete Time: 17:05 snw 07/19 16:39 Order name: O2 Sat Monitoring; Complete Time: 17:05 snw 07/19 16:39 Order name: Vital Signs; Complete Time: 17:06 snw 07/19 18:21 Order name: EKG - Nurse/Tech; Complete Time: 18:36 snw 07/19 20:00 Order name: Misc. Order: start levophed prn SBP < 85 snw EC:20 Rate is 109 beats/min. Rhythm is regular. QRS [place] is Normal. NC interval is normal. snw QRS interval is normal. QT interval is normal. No Q waves. Clinical impression: Sinus tachycardia. 18:30 Rate is 115 beats/min. Rhythm is regular. QRS [place] is Normal. NC interval is normal. snw QRS interval is normal. Clinical impression: Sinus tachycardia. Administered Medications: 17:04 Drug: NS 0.9% IV (30 ml/kg) 2300 ml {Note: x 1 liter and 1liter per right EJ.} Route: snw IV; Rate: bolus; Site: left antecubital; 19:48 Follow up: Response: No adverse reaction; IV Status: Completed infusion; IV Intake: kc6 2300ml 17:48 Drug: Rocephin IV 1 grams Route: IV; Rate: calculated rate; Site: right jugular; kc6 19:47 Follow up: Response: No adverse reaction; IV Status: Completed infusion; IV Intake: [id number] 18:36 Drug: Levalbuterol Inhalation 1.25 mg Route: Inhalation; kc6 19:47 Follow up: Response: No adverse reaction kc6 18:36 Drug: Decadron - Dexamethasone IVP 10 mg Route: IVP; Site: right jugular; kc6 19:47 Follow up: Response: No adverse reaction kc6 19:40 Not Given (Physician Discretion): Zithromax IVPB 500 mg IVPB once over 1 hrs; mix in ha1 250 mL NS 20:08 Drug: vancoMYCIN IVPB 1.5 grams Route: IVPB; Rate: calculated rate; Site: right jugular;ha1 20:10 Drug: Levalbuterol Inhalation 1.25 mg Route: Inhalation; ha1 Disposition: 18:07 Co-signature as Attending Physician, Rc Watson MD I reviewed the patient's care rt provided by Advanced Practice Provider \T\ agree w/ the diagnosis \T\ care plan. I personally saw the pt \T\ performed a substantive portion of the visit, incldng all aspects of the (History/Exam/Medical Decision Making). PA/ENVELOPE MAKER's history reviewed, patient interviewed, and examined. HPI: Patient presents to the ED with a dyspnea, worse with positional changes. My personal exam of patient reveals: Wheezes heard on all lung chavarria, mild respiratory distress I agree with assessment and care plan and confirm the diagnosis (es) above. Disposition Summary: 07/19/22 19:34 Hospitalization Ordered Hospitalization Status: Inpatient Admission snw Provider: Brian Rodriguez snbrenda Condition: Stable snw Problem: new snw Symptoms: have improved snw Bed/Room Type: Standard snw Location: Intensive Care Unit(07/19/22 19:40) snw Room Assignment: 2-(07/19/22 20:50) cg Diagnosis - Severe sepsis with septic shock snw - Acute bronchitis due to Mycoplasma pneumoniae snw - COPD/ Chronic obstructive pulmonary disease with (acute) exacerbation snw Forms: - Medication Reconciliation Form snw - SBAR form snw Critical care time excluding procedures: 20:38 Critical care time: Bedside Care: 15 minutes, Consultation: 10 minutes, Family snw Intervention: 5 minutes. Total time: 30 minutes Signatures: Dispatcher [employer] EDMS Lanette Steve, SENIOR ACCOUNTING CLERK-C SENIOR ACCOUNTING CLERK-Ckb Emilie Clement SENIOR ACCOUNTING CLERK-C SENIOR ACCOUNTING CLERK-Csnw LucristinaJim SENIOR ACCOUNTING CLERK-C SENIOR ACCOUNTING CLERK-Cla1 Galina Escobedo, RN RN cg Ladonna Monreal RN RN Jeannine August RN RN ha1 Gillian Mendes RN RN kc6 Rc Watson MD MD rt Corrections: (The following items were deleted from the chart) 19:40 19:34 Telemetry/MedSurg (Inpatient) snw snw 19:40 19:34 snw snw 19:48 19:34 ED course: A= pneumonia, B=HR 124, RR, 24, WBC >12,000, C= lactate 3.1, Septic snw Shock as two pressures <90. snw 19:54 18:30 ED course: A= pneumonia, B=HR 124, RR, 24, WBC >12,000, C= lactate 3.1, Septic snw Shock as two pressures <90. snw 19:56 19:54 Norepinephrine IV 0.1 mcg/kg/min IV at calculated rate See Administration snw Instructions; (Standard concentration 4 mg / 250 mL D5W); Recommended max rate 3 mcg/kg/min; Titrate 0.05 mcg/kg/min as often as every 5 minutes to achieve goal (see titration policy); Goal parameter MAP greater than 65 mmHg. ordered. snw 20:50 19:40 snw cg
[2022-07-19] MEDS ORDERED: VANCOMYCIN 1 GM/VIAL ONE (19:47)
[2022-07-19] MEDS ORDERED: VANCOMYCIN 500 MG/VIAL ONE (19:48)
[2022-07-19] MEDS ORDERED: NOREPINEPHRINE BITARTRATE/D5W 0 MG/0 ML BAG IV ONE (20:02)
[2022-07-19 20:26] LABS: Hematocrit 27.6 % (36.0-45.0)
--- NOTE | 2022-07-19 20:26 | P.HP ---
Certification for Inpatient Patient admitted to: Inpatient With expected LOS: >2 Midnights Patient will require the following post-hospital care: None Practitioner: I am a practitioner with admitting privileges, knowledge of patient current condition, hospital course, and medical plan of care. Services: Services provided to patient in accordance with Admission requirements found in Title 42 Section 412.3 of the Code of Federal Regulations <Jim Dodson - Last Filed: 07/19/22 20:15> Patient History Date of Service: 07/19/22 Reason for admission: Septic shock, pneumonia, COPD exacerbation History of Present Illness: 62-year-old female with history of COPD on chronic home O2, fce-mkcugyh-vtgzcoyka diabetes, hypertension, hyperlipidemia, CHFunknown EF, hypothyroidism presents to the emergency department for shortness of breath. She reports increasing shortness of breath over the course of the last month but especially worse the last few days. She also has productive cough. Upon arrival to ED patient was tachycardic, tachypneic with very diminished/tight/expiratory wheezing breath sounds. She was given IV steroids, nebulizer treatments her labs were significant for white blood cell count 11.4 hemoglobin 10 hematocrit 30.3, lactic acid 3.1 glucose 158 BNP 7634 high- sensitivity troponin less than 3 TSH 0.095 negative for UTI negative for COVID/flu. ABG showed pH of 7.37, PCO2 48.1 PO2 92.5 HCO3 27.0 her chest x-ray showed mild CHF pattern, CT angiogram for dissection was performed which showed no acute aortic finding demonstrated, moderate emphysema, nonspecific gallbladder distention, tree-in-bud opacity present in the lingula and right middle lobe this could represent ROBERTO infection. During her stay in the emergency department patient did develop hypotension, she received 30 cc/kg IV fluid bolus and had some refractory hypertension, Levophed has been ordered at this time. ED provider did discuss case with pulmonology, plan to admit to ICU for further evaluation/management of COPD exacerbation, septic shock secondary to right middle lobe pneumonia. - Past Medical/Surgical History Diabetic: Yes -: Diabetes mellitus type [id number] -: COPD on home O2 -: Hypertension -: Hyperlipidemia -: CHFunknown EF -: Hypothyroidism -: Tubal ligation -: Hernia repair -: Back surgery Psychosocial/ Personal History: Lives at home, alone - Family History Mother -: Cancer Father -: Cancer Brother -: Diabetes - Social History Smoking Status: Former smoker Alcohol use: No CD- Drugs: No Caffeine use: Yes Place of Residence: Home <Jim Dodson - Last Filed: 07/19/22 20:15> Date of Service: 07/20/22 <Brian Rodriguez - Last Filed: 07/20/22 10:31> Review of Systems 10-point ROS is otherwise unremarkable Respiratory: Cough, Shortness of Breath, Sputum <Jim Dodson Jayson - Last Filed: 07/19/22 20:15> Physical Examination - Physical Exam General: Alert, In no apparent distress HEENT: Atraumatic, PERRLA, Mucous membr. moist/pink, EOMI, Sclerae nonicteric Neck: Supple, 2+ carotid pulse no bruit, No LAD, Without JVD or thyroid abnormality Respiratory: Diminished, Expiratory wheezes Cardiovascular: Regular rate/rhythm, Normal S1 S2 Capillary refill: <2 Seconds Gastrointestinal: Normal bowel sounds, No tenderness Musculoskeletal: No tenderness Integumentary: No rashes Neurological: Normal speech, Normal strength at 5/5 x4 extr, Normal tone, Normal affect - Studies Laboratory Data (last 24 hrs) 07/19/22 16:55: PT 13.0 H, INR 1.18, APTT 27.0 07/19/22 16:55: Sodium 137, Potassium 3.5, BUN 13, Creatinine 0.89, Glucose 158 H, Total Bilirubin 0.3, AST 70 H, ALT 41, Alkaline Phosphatase 145 H 07/19/22 16:55: WBC 11.40 H, Hgb 10.0 L, Hct 30.3 L, Plt Count 355 <Jim Dodsonur - Last Filed: 07/19/22 20:15> - Studies Laboratory Data (last 24 hrs) 07/19/22 16:55: PT 13.0 H, INR 1.18, APTT 27.0 07/19/22 16:55: Sodium 137, Potassium 3.5, BUN 13, Creatinine 0.89, Glucose 158 H, Total Bilirubin 0.3, AST 70 H, ALT 41, Alkaline Phosphatase 145 H 07/19/22 16:55: WBC 11.40 H, Hgb 10.0 L, Hct 30.3 L, Plt Count 355 <Michael,Brian - Last Filed: 07/20/22 10:31> Assessment and Plan - Plan Assessment: Septic Shock secondary to right sided pneumonia Acute on chronic hypoxic respiratory failure secondary to COPD with exacerbation Acute on chronic CHF-unknown EF Diabetes mellitus type roa-hfy-ckhuzfs dependent HTN HLD Hypothyroidism Plan: Septic Shock secondary to right sided pneumonia SIRS criteria present tachycardia/tachypnea, source of infection with pneumonia on CT, lactate 3.1, developed hypotension in ED refractory to IV fluid bolus. Levophed ordered, No acute aortic findings of PE on CT, no Pericardial effusion noted. Case discussed with pulmonology by ED staff, started on ABX rocephin/vanc. Admit to ICU, PRN levophed, PRN Bipap. Pulm consult. Acute on chronic hypoxic respiratory failure secondary to COPD with exacerbation Continue nebs, Steroids, inhaler. Continue supplemental 02, PRN Bipap. No acidosis on ABG. Acute on chronic CHF-unknown EF BNP elevated, CT without pulmnary edema or pleural effusion. Will hold off on diuresis given hypotension. Echo and cardiology consult in place. Will trend trops. Diabetes mellitus type hrp-qmd-bdykygq dependent SSI, A1C in the morning. HTN Hold meds in setting of septic shock, hypotension. HLD Hypothyroidism Continue home meds. DVT PPX:Lovenox Code status:Full Discharge Plan: Home Plan to discharge in: Greater than 2 days - Advance Directives Does patient have a Living Will: No Does patient have a Durable POA for Healthcare: No - Code Status/Comfort Care Code Status Assessed: Yes (Full code) Critical Care: No Time Spent Managing Pts Care (In Minutes): 70 <Jim Dodson - Last Filed: 07/19/22 20:15>
[2022-07-19] MEDS ORDERED: Magnesium Sulfate 2gm IVPB 2 G/50 ML BAG IV ONE (22:28)
[2022-07-19] MEDS ORDERED: NOREPINEPHRINE 4 MG in D5W 250 ML IV SCH (23:03)
[2022-07-19] MEDS: INSULIN -REGULAR HUMAN 50 UNIT/0.5 ML ML SQ SCH (23:03)
[2022-07-19] MEDS ORDERED: DULERA 200/5 (MOMETASONE/FORMOTEROL) INHALER IH SCH (23:03)
[2022-07-19] MEDS ORDERED: ONDANSETRON 4 MG/2 ML VIAL IV PRN (23:03)
[2022-07-19] MEDS ORDERED: ALBUTEROL 2.5 MG/3 ML NEB SOL NEB PRN (23:03)
[2022-07-19] MEDS ORDERED: IPRATROPIUM BROM 0.5MG/2.5ML NEB PRN (23:03)
[2022-07-19] MEDS ORDERED: ACETAMINOPHEN 500 MG TAB PO PRN (23:03)
[2022-07-19] MEDS: ZOLPIDEM TARTRATE 10 MG TABLET PO PRN (23:50)
[2022-07-20] MEDS: ENOXAPARIN 80 MG/0.8 ML SQ SCH ×3 (01:14→20:42)
[2022-07-20] MEDS: METHYLPREDNISOLONE 40 MG INJ IV SCH ×3 (01:14→16:53)
[2022-07-20 02:11] LABS: Urine Bacteria <20 /HPF (<20); Urine Bilirubin NEGATIVE (Negative); Urine Blood 1+ (Negative); Urine Clarity Clear (Clear); Urine Color Light-Yellow (Yellow); Urine Glucose NEGATIVE (Negative); Urine Protein 1+ (Negative); Urine RBC 21-50 /HPF (None Seen); Urine Urobilinogen Normal (Normal); Urine pH 6.5 (5.0-7.0)
[2022-07-20 02:12] LABS: Specific Gravity > 1.030 (1.005-1.030)
--- NOTE | 2022-07-20 03:31 | P.PN ---
Date of Service: 07/19/22 Lactate improved from 3.1 down to 1.6, blood pressure also improved patient did not require any vasopressor therapy. Sepsis reassessment complete. Troponin did spike, given therapeutic Lovenox, ASA.
[2022-07-20 05:48] LABS: Absolute Lymphocytes (CBC) 0.7 K/uL (0.7-4.9); Hematocrit 26.7 % (36.0-45.0); Lymphocytes % 11.2 % (15.3-44.8); MCV 98.3 fL (80-100); MPV 8.3 fL (7.6-11.3); RBC Red Blood Cell Count 2.72 M/uL (3.86-4.86)
[2022-07-20 06:14] LABS: Albumin 2.4 g/dL (3.4-5.0); Bilirubin Total 0.2 mg/dL (0.2-1.0); Magnesium 1.5 mg/dL (1.6-2.4); Potassium 3.4 mEq/L (3.5-5.1); Thyroid Stimulating Hormone 0.03 uIU/mL (0.358-3.740)
[2022-07-20 06:18] LABS: Troponin High Sensitivity 556.9 pg/mL (<58.9)
[2022-07-20] MEDS ORDERED: POTASSIUM CL SA 10 MEQ TAB PO ONE (07:30)
[2022-07-20] MEDS ORDERED: Magnesium Sulfate 2gm IVPB 2 G/50 ML BAG IV ONE (07:30)
[2022-07-20] MEDS: INSULIN -REGULAR HUMAN 50 UNIT/0.5 ML ML SQ SCH ×4 (07:30→21:00)
[2022-07-20] MEDS: DULERA 200/5 (MOMETASONE/FORMOTEROL) INHALER IH SCH ×2 (08:22→20:41)
[2022-07-20] MEDS: ASPIRIN 81 MG CHEWABLE TABLET PO SCH (08:55)
[2022-07-20] MEDS: VANCOMYCIN 1.25 GM in NA CHLORIDE 0.9% 250 ML IVPB SCH ×2 (08:55→20:42)
[2022-07-20] MEDS ORDERED: VANCOMYCIN 1 GM in NA CHLORIDE 0.9% 250 ML IVPB SCH (09:00)
[2022-07-20] MEDS ORDERED: ENOXAPARIN 40 MG/0.4 ML SQ SCH (09:00)
[2022-07-20] MEDS ORDERED: AZITHROMYCIN IV 500 MG in NA CHLORIDE 0.9% 250 ML IVPB SCH (09:00)
[2022-07-20] MEDS ORDERED: ASPIRIN 81 MG CHEWABLE TABLET PO SCH (09:00)
[2022-07-20] MEDS ORDERED: CEFTRIAXONE 1,000 MG in NA CHLORIDE 0.9% 50 ML IVPB SCH (09:00)
--- NOTE | 2022-07-20 10:37 | P.PN ---
Subjective Date of Service: 07/20/22 Chief Complaint: Septic shock, pneumonia, COPD exacerbation Overnight, she did well. She has not required vasopressor support. She has intermittent episodes of flushing, palpitations, and diaphoresis, which she states that she has been having for about two years. Around that time, she was started on venlafaxine 225 mg. She had several of these episodes that were witnessed by our staff. They occur without any obvious inciting or alleviating factors. They last for about 30 seconds to 1 minute at a time. This morning on rounds, she appears comfortable. Her SpO2 is in the mid 90s on 2-3 L nasal cannula. Her baseline O2 requirement is 2 L. Review of Systems 10-point ROS is otherwise unremarkable General: Chills, Sweats Respiratory: Shortness of Breath Physical Examination - Vital Signs Temperature: 97.1 F Blood Pressure: 97/77 Pulse: 104 Respirations: 14 Pulse Ox (%): 97 - Physical Exam General: Alert, In no apparent distress, Oriented x3 HEENT: Atraumatic, Mucous membr. moist/pink, EOMI, Sclerae nonicteric Neck: JVD not distended Respiratory: Diminished, Expiratory wheezes (faint), Rhonchi/gurgles Cardiovascular: No edema, Regular rate/rhythm, Normal S1 S2, No gallops, No rubs, No murmurs Gastrointestinal: Normal bowel sounds, Soft and benign, Non-distended, No tenderness, No rebound, No guarding Musculoskeletal: No clubbing Integumentary: No rashes Neurological: Normal speech, Cranial nerves 3-12 intact, Normal affect - Studies Laboratory Data (last 24 hrs) 07/19/22 16:55: PT 13.0 H, INR 1.18, APTT 27.0 07/19/22 16:55: Sodium 137, Potassium 3.5, BUN 13, Creatinine 0.89, Glucose 158 H, Total Bilirubin 0.3, AST 70 H, ALT 41, Alkaline Phosphatase 145 H 07/19/22 16:55: WBC 11.40 H, Hgb 10.0 L, Hct 30.3 L, Plt Count 355 Assessment And Plan - Plan # Suspect Septic Shock likely secondary to Right Middle Lobe/[place] Community- Acquired Pneumonia She met sepsis criteria based on HR > 90 bpm, RR > 20 breaths/min and the suspected source is pneumonia. Severe sepsis is suspected due to concern for tissue hypoperfusion/organ dysfunction based on lactic acid > 2 mmol/L. Septic shock is suspected due to multiple SBP < 90 mmHg. - Pulmonology consulted and Dr. Carrero notified by overnight team - recommendations appreciated - Sepsis order set was initiated - Lactate trend: 3.1 -> 1.6 - Procalcitonin = 1.48 - Blood cultures drawn before antibiotics were given - Broad spectrum antibiotics started: Vancomycin + Ceftriaxone + Azithromycin (to cover ROBERTO) - In regards to fluids: - 30 mL/kg of IV Normal Saline was given based on patient's actual body weight - Sepsis reassessment completed at 21:35 on 07/19/2022 by Jim Dodson NP # Acute Chronic Obstructive Pulmonary Disease Exacerbation # Chronic Respiratory Failure secondary to Chronic Obstructive Pulmonary Disease on Home Oxygen (2 L) - Evaluation thus far: - Procalcitonin = 1.48 - ABG = pH 7.37, PCO2 48.1, PO2 92.5[text] - Chest x-ray = "mild CHF pattern." - CT dissection protocol = "moderate emphysema. Tree-in-bud opacity is present in the lingula and right middle lobe. This could represent ROBERTO infection." - Management plan: - Consulted Pulmonary Medicine - recommendations appreciated - Bronchodilators and steroids per Pulm - Consulted Respiratory Therapy - Supplemental oxygen to maintain SpO2 > 92% - Encouraged incentive spirometry # Acute Decompensated Congestive Heart Failure with Unknown Ejection Fraction - Consult Cardiology - recommendations appreciated - NT-Pro BNP = 7634 - Ordered transthoracic echocardiogram - Diuresis on hold for now given hypotension - Daily weights - Strict I/O # Suspect Type II Non-ST Segment Elevation Myocardial Infarction (Demand Ischemia) due to above # Hypertension # Hyperlipidemia - Evaluation thus far: - EKG: reportedly without STEMI criteria, trend - Serial troponin: <3.0 -> 654.3 -> 556.9 - Ordered transthoracic echocardiogram - Management plan: - Consult Cardiology - recommendations appreciated - Continue aspirin + atorvastatin - Continue SQ enoxaparin - Consider starting beta-alyce, JIE-inhibitor/ARB at a later time if blood pressure allows # Hyperthyroidism secondary to Over-Supplementation # History of Hypothyroidism - Hold home levothyroxine # Intermittent Episodes of Tachycardia, Flushing, Diaphoresis Differential is broad and includes, but is not limited to, hyperthyroidism, medication adverse effect (venlafaxine), postural orthostatic tachycardic syndrome, carcinoid syndrome, and pheochromocytoma. - At this time, hold home levothyroxine and venlafaxine and monitor symptoms - If symptoms persist, plan to obtain urine 5-HIAA and 24 hour catecholamines/metanephrines # Type II Diabetes Mellitus - Hgb A1c = 5.0 % (difficult to interpret given anemia) - Correction scale insulin Brian Rodriguez M.D.
--- NOTE | 2022-07-20 11:22 | P.CNS ---
Date of Consult: 07/20/22 Chief Complaint: Septic shock, pneumonia, COPD exacerbation History of Present Illness: Patient is 62 years of age with a history of COPD seen by information management specialist at [facility] she has had COPD diagnosed 10 years ago uses Anoro became sick over the past 2 days complaining of cough congestion history of coronary artery disease but no stents patient is on home oxygen Allergies No Known Allergies Allergy (Unverified 07/19/22 22:48) - Past Medical/Surgical History Diabetic: Yes -: Diabetes mellitus type [id number] -: COPD on home O2 -: Hypertension -: Hyperlipidemia -: CHFunknown EF -: Hypothyroidism -: Tubal ligation -: Hernia repair -: Back surgery Psychosocial/ Personal History: Lives at home, alone - Family History Mother Medical History: Cancer Father Medical History: Cancer Brother Medical History: Diabetes - Social History Smoking Status: Unknown if ever smoked Alcohol use: No CD- Drugs: No Caffeine use: Yes Place of Residence: Home Review of Systems 10-point ROS is otherwise unremarkable General: Weakness Respiratory: Cough, Shortness of Breath Physical Examination Temp Pulse Resp BP Pulse Ox 97.1 F 104 H 14 97/77 97 07/20/22 11:04 07/20/22 11:04 07/20/22 11:04 07/20/22 11:04 07/20/22 11:04 General: Alert, In no apparent distress, Oriented x3 Neck: Supple Respiratory: Clear to auscultation bilaterally, Diminished Cardiovascular: No edema, Regular rate/rhythm, Normal S1 S2 Gastrointestinal: Normal bowel sounds, Soft and benign Musculoskeletal: No clubbing, No swelling Laboratory Data (last 24 hrs) 07/19/22 16:55: PT 13.0 H, INR 1.18, APTT 27.0 07/19/22 16:55: Sodium 137, Potassium 3.5, BUN 13, Creatinine 0.89, Glucose 158 H, Total Bilirubin 0.3, AST 70 H, ALT 41, Alkaline Phosphatase 145 H 07/19/22 16:55: WBC 11.40 H, Hgb 10.0 L, Hct 30.3 L, Plt Count 355 - Problems (1) Shock Current Visit: Yes Status: Acute Plan: Patient is 62 years of age admitted with shortness of breath history of COPD uses Anoro also has a cough has home oxygen. With low blood pressure chest x- ray no obvious infiltrate White count is mildly elevated on IV fluids to wean off vasopressor changed to IV levofloxacin patient is mildly anemic white count is now normal await for cultures CT scan reviewed COPD changes may have some el ement of bronchiectasis patient has minimal lower extremity edema only underlying cor pulmonale patient takes medication for depression is on buprenorphine as weaning off from narcotic losartan bisoprolol and metformin
[2022-07-20] MEDS ORDERED: ALBUTEROL 2.5 MG/3 ML NEB SOL NEB PRN (11:24)
[2022-07-20] MEDS ORDERED: Ringers Lactate 1,000 ML IV SCH (12:00)
--- NOTE | 2022-07-20 12:08 | RAD REPORT ---
EXAM DESCRIPTION: [place] Single View07/20/2022 11:57 am CLINICAL HISTORY: Shortness of breath COMPARISON: July 19, 2022 FINDINGS: There is probably minimal interstitial pulmonary edema Heart is normal size
[2022-07-20] MEDS: Ringers Lactate 1,000 ML IV SCH (12:46)
[2022-07-20] MEDS ORDERED: VANCOMYCIN 1.5 GM in NA CHLORIDE 0.9% 500 ML IVPB SCH (14:00)
[2022-07-20 15:16] LABS: Potassium 3.7 mEq/L (3.5-5.1)
[2022-07-20] MEDS: ATORVASTATIN 40 MG TAB PO SCH (20:42)
[2022-07-20] MEDS ORDERED: [UNRECOGNIZED DRUG - OTHER] SL SCH (21:00)
[2022-07-21] MEDS: METHYLPREDNISOLONE 40 MG INJ IV SCH ×3 (00:24→17:43)
[2022-07-21 05:33] LABS: Hematocrit 25.9 % (36.0-45.0)
[2022-07-21 05:42] LABS: Albumin 2.4 g/dL (3.4-5.0); Bilirubin Total 0.2 mg/dL (0.2-1.0); Protein, Total 5.7 g/dL (6.4-8.2)
[2022-07-21] MEDS: Levofloxacin 750mg IV 750 MG/150 ML BAG IV SCH (06:11)
[2022-07-21] MEDS: INSULIN -REGULAR HUMAN 50 UNIT/0.5 ML ML SQ SCH ×4 (07:30→20:34)
--- NOTE | 2022-07-21 09:19 | P.PN ---
Subjective Date of Service: 07/21/22 Chief Complaint: Septic shock, pneumonia, COPD exacerbation No acute events overnight. She reports that she feels well this morning. She had another episode of flushing, palpitations, and diaphoresis yesterday, which lasted for about 20 minutes. Per RN, she initially had a heart rate of around 50 bpm, but then it increased to 150 bpm and resolved in about 20 minutes without intervention. She denies any chest pain, palpitations, or shortness of breath at this time. Review of Systems 10-point ROS is otherwise unremarkable General: Sweats Cardiovascular: Palpitations Physical Examination - Vital Signs Temperature: 97.7 F Blood Pressure: 114/77 Pulse: 87 Respirations: 14 Pulse Ox (%): 99 Assessment And Plan - Plan - Physical Exam General: Alert, In no apparent distress, Oriented x3 HEENT: Atraumatic, Mucous membr. moist/pink, Sclerae nonicteric Neck: JVD not distended Respiratory: Diminished, faint scattered rhonchi/gurgles Cardiovascular: No edema, Regular rate/rhythm, No murmurs Gastrointestinal: Normal bowel sounds, Soft, No tenderness Musculoskeletal: No clubbing Integumentary: No rashes Neurological: Normal speech, Normal affect # Suspect Septic Shock likely secondary to Right Middle Lobe/[place]ingula Community- Acquired Pneumonia She met sepsis criteria based on HR > 90 bpm, RR > 20 breaths/min and the s uspected source is pneumonia. Severe sepsis is suspected due to concern for tissue hypoperfusion/organ dysfunction based on lactic acid > 2 mmol/L. Septic shock is suspected due to multiple SBP < 90 mmHg. - Pulmonology consulted and Dr. Carrero notified by overnight team - recommendations appreciated - Sepsis order set was initiated - Lactate trend: 3.1 -> 1.6 - Procalcitonin = 1.48 - Blood cultures drawn before antibiotics were given - Broad spectrum antibiotics started: Vancomycin + Ceftriaxone + Azithromycin (to cover ROBERTO) - In regards to fluids: - 30 mL/kg of IV Normal Saline was given based on patient's actual body weight - Sepsis reassessment completed at 21:35 on 07/19/2022 by Jim Dodson NP # Acute Chronic Obstructive Pulmonary Disease Exacerbation # Chronic Respiratory Failure secondary to Chronic Obstructive Pulmonary Disease on Home Oxygen (2 L) - Evaluation thus far: - Procalcitonin = 1.48 - ABG = pH 7.37, PCO2 48.1, PO2 92.5 - Chest x-ray = "mild CHF pattern." - CT dissection protocol = "moderate emphysema. Tree-in-bud opacity is present in the lingula and right middle lobe. This could represent ROBERTO infection." - Management plan: - Consulted Pulmonary Medicine - recommendations appreciated - Bronchodilators and steroids per Pulm - Consulted Respiratory Therapy - Supplemental oxygen to maintain SpO2 > 92% - Encouraged incentive spirometry # Acute Decompensated Congestive Heart Failure with Unknown Ejection Fraction - Consult Cardiology - recommendations appreciated - NT-Pro BNP = 7634 - Ordered transthoracic echocardiogram - Diuresis on hold for now given hypotension - Daily weights - Strict I/O # Suspect Type II Non-ST Segment Elevation Myocardial Infarction (Demand Ischemia) due to above # Hypertension # Hyperlipidemia - Evaluation thus far: - EKG: reportedly without STEMI criteria, trend - Serial troponin: <3.0 -> 654.3 -> 556.9 -> 302.0 - Ordered transthoracic echocardiogram - Management plan: - Consult Cardiology - recommendations appreciated - Continue aspirin + atorvastatin - Continue SQ enoxaparin - Consider starting beta-alyce, JIE-inhibitor/ARB at a later time if blood pressure allows # Hyperthyroidism secondary to Over-Supplementation # History of Hypothyroidism - Hold home levothyroxine # Intermittent Episodes of Tachycardia, Flushing, Diaphoresis Differential is broad and includes, but is not limited to, hyperthyroidism, medication adverse effect (venlafaxine), postural orthostatic tachycardic syndrome, carcinoid syndrome, and pheochromocytoma. - At this time, hold home levothyroxine and venlafaxine and monitor symptoms - Obtain urine 5-HIAA and 24 hour catecholamines/metanephrines, started today at 06:00 AM # Type II Diabetes Mellitus - Hgb A1c = 5.0 % (difficult to interpret given anemia) - Correction scale insulin Brian Rodriguez M.D.
[2022-07-21] MEDS: DULERA 200/5 (MOMETASONE/FORMOTEROL) INHALER IH SCH ×2 (09:22→20:33)
[2022-07-21] MEDS: BUPRENORPHINE SL SCH ×2 (09:22→20:34)
[2022-07-21] MEDS: [UNRECOGNIZED DRUG - OTHER] SL SCH ×2 (09:22→20:34)
[2022-07-21] MEDS: ENOXAPARIN 80 MG/0.8 ML SQ SCH ×2 (09:22→20:33)
[2022-07-21] MEDS: ASPIRIN 81 MG CHEWABLE TABLET PO SCH (09:22)
[2022-07-21] MEDS: Ringers Lactate 1,000 ML IV SCH (09:23)
[2022-07-21] MEDS: VANCOMYCIN 1.25 GM in NA CHLORIDE 0.9% 250 ML IVPB SCH ×2 (09:23→20:33)
[2022-07-21] MEDS ORDERED: ALBUTEROL 2.5 MG/3 ML NEB SOL NEB PRN (11:00)
[2022-07-21] MEDS: BENZONATATE 100 MG CAP PO PRN ×2 (14:14→20:34)
[2022-07-21] MEDS: ZOLPIDEM TARTRATE 10 MG TABLET PO PRN (20:34)
[2022-07-21] MEDS: ATORVASTATIN 40 MG TAB PO SCH (20:34)
[2022-07-22] MEDS: METHYLPREDNISOLONE 40 MG INJ IV SCH ×2 (00:52→07:29)
[2022-07-22] MEDS: Ringers Lactate 1,000 ML IV SCH (05:00)
[2022-07-22] MEDS: Levofloxacin 750mg IV 750 MG/150 ML BAG IV SCH (05:08)
[2022-07-22 05:09] LABS: Albumin 2.5 g/dL (3.4-5.0); Bilirubin Total 0.2 mg/dL (0.2-1.0); Potassium 3.7 mEq/L (3.5-5.1); Protein, Total 5.9 g/dL (6.4-8.2)
[2022-07-22] MEDS: DULERA 200/5 (MOMETASONE/FORMOTEROL) INHALER IH SCH (07:27)
[2022-07-22] MEDS: INSULIN -REGULAR HUMAN 50 UNIT/0.5 ML ML SQ SCH ×4 (07:29→20:40)
[2022-07-22] MEDS: VANCOMYCIN 1.25 GM in NA CHLORIDE 0.9% 250 ML IVPB SCH (07:34)
[2022-07-22] MEDS: ASPIRIN 81 MG CHEWABLE TABLET PO SCH (07:34)
[2022-07-22] MEDS: ENOXAPARIN 80 MG/0.8 ML SQ SCH ×2 (07:34→20:39)
[2022-07-22] MEDS: BUPRENORPHINE SL SCH ×2 (07:42→20:07)
[2022-07-22] MEDS: [UNRECOGNIZED DRUG - OTHER] SL SCH ×2 (07:42→20:07)
[2022-07-22] MEDS: ARFORMOTEROL TARTRATE 15 MCG/2 ML VIAL.NEB NEB SCH ×2 (08:17→19:50)
[2022-07-22] MEDS: METFORMIN HCL 500 MG TAB PO SCH (08:25)
[2022-07-22] MEDS: LEVOTHYROXINE SOD 0.075 MG TAB PO SCH (08:30)
[2022-07-22] MEDS ORDERED: KCL 20 MEQ/100 mL IVPB 20 MEQ/100 ML BAG IV SCH (09:00)
[2022-07-22] MEDS ORDERED: ALBUTEROL 2.5 MG/3 ML NEB SOL NEB PRN (09:00)
[2022-07-22] MEDS ORDERED: NALOXONE HCL SL SCH (09:00)
[2022-07-22] MEDS ORDERED: HOME MED 1 EA UNK (Umeclidinium Brm/Vilanterol Tr [Anoro Ellipta 62.5-25 Mcg Inh] Blst.W.D IH SCH (09:00)
[2022-07-22] MEDS ORDERED: BUPRENORPHINE HCL SL SCH (09:00)
[2022-07-22] MEDS ORDERED: HOME MED 1 EA UNK (Levothyroxine Sodium [Levothyroxine] 150 MCG Capsule) PO SCH (09:00)
[2022-07-22] MEDS ORDERED: [UNRECOGNIZED DRUG - OTHER] SL SCH (09:00)
[2022-07-22] MEDS ORDERED: POTASSIUM CL SA 10 MEQ TAB PO ONE (09:00)
[2022-07-22] MEDS: DIVALPROEX DR 250 MG TAB PO SCH (09:47)
[2022-07-22] MEDS: LOSARTAN POTASSIUM 50 MG TABLET PO SCH ×2 (09:47→20:39)
[2022-07-22] MEDS: VENLAFAXINE HCL XR 75 MG CAP PO SCH (09:47)
[2022-07-22] MEDS: FUROSEMIDE 20 MG/ 2ML VIAL IV SCH (09:47)
[2022-07-22] MEDS: BENZONATATE 100 MG CAP PO PRN ×2 (11:15→20:39)
--- NOTE | 2022-07-22 12:08 | P.PN ---
Subjective Date of Service: 07/22/22 Chief Complaint: Shortness of breath Patient still complains of shortness of breath on minimal exertion apparently this has been progressive was happening at home is gotten worse recently prior to admission on slightest movement patient has significant tachycardia/some shortness of breath Review of Systems General: Weakness Respiratory: Shortness of Breath Physical Examination - Vital Signs Temperature: 97.8 F Blood Pressure: 133/86 Pulse: 99 Respirations: 20 Pulse Ox (%): 98 - Physical Exam General: Alert, In no apparent distress, Oriented x3 Respiratory: Clear to auscultation bilaterally, Diminished Cardiovascular: No edema, Regular rate/rhythm, Normal S1 S2 Gastrointestinal: Normal bowel sounds - Studies Microbiology Data (last 24 hrs): 07/19/22 19:02 Catheterized Urine [place] Count - Final No growth. 07/19/22 19:02 Catheterized Urine - Final No growth. 07/19/22 15:02 Sputum Sputum Gram Stain - Final Assessment And Plan - Current Problems (Diagnosis) (1) Shortness of breath Current Visit: Yes Status: Acute Plan: Patient complaining of acute on chronic shortness of breath with severe tachycardia on minimal exertion hypotension has resolved troponins have declined significantly blood cultures all negative vital signs oxygenation satisfactory no acute changes noted on CT of the chest probably has underlying severe obstructive airways disease resume home medications bronchodilators diuretics echocardiogram pending no evidence of sepsisScheduled for stress test tomorrow change management coordinator to p.o. prednisone patient still is anticoagulated seen by cardiology troponin is probably elevated from demand ischemia Discharge Plan: Home
[2022-07-22] MEDS: ALBUTEROL 2.5 MG/3 ML NEB SOL IH SCH ×2 (14:45→19:50)
--- NOTE | 2022-07-22 16:35 | CON ---
Date of Consultation: 07/22/2022 Reason For Consultation: Elevated troponin. History Of Present Illness: A 62-year-old female, who has history of COPD, on home oxygen, diabetes, hyperlipidemia, congestive heart failure, hypothyroidism, hypertension, presented with shortness of breath, productive cough. Upon arrival, she was severely wheezing and was admitted to ICU due to a s eptic shock and acute respiratory failure. She had a troponin elevation during this hospital stay an d I was consulted, and she does not have any chest pain. Past Medical History: As outlined above in HPI. Medications: Refer to reconciliation sheet for detailed list. Allergies: NO KNOWN DRUG ALLERGIES. Family History: No premature coronary artery disease or cancer. Social History: Ex-smoker. Does not drink or use any drugs. Review of Systems: All systems reviewed and they were negative except what mentioned in HPI. Physical Examination: Vital Signs: Reviewed. Head and Neck: Pupils are equal, reactive to light. Intact eye movements. No JVD. No cervical lym phadenopathy. Neck is supple. Thyroid is not enlarged. Lungs: Decreased breathing sounds with rhonchi. No accessory muscle use or muscle. Heart: Irregular. No extra sounds. Abdomen: Soft, nontender. Bowel sounds positive. No organomegaly. No masses or hernia. No rigidi ty or rebound. Extremities: No clubbing or cyanosis. Intact pulses. Skin: No rash. Neurologic: Alert, awake, oriented x3. No acute focal deficits appreciated. Lymph Nodes: No cervical or axillary lymphadenopathy. Investigations: Troponin peaked at 654 and now down to 149, BUN 13, creatinine 0.56, and hemoglobin is 8.5. Assessment And Recommendations: 1.Elevated troponin. No chest pain. This could be demand ischemia; however, non-ST elevation myoca rdial infarction also is a possibility. Obtain a Lexiscan nuclear stress test to further evaluate an d obtain an echocardiogram. Further recommendations to follow accordingly. 2.Congestive heart failure with acute exacerbation, probably it is part of the respiratory failure. Agree with Lasix. The patient appears to be euvolemic. 3.Acute hypoxic respiratory failure and this is due to significant chronic obstructive pulmonary dis ease exacerbation and part of heart failure exacerbation. This is improving. Continue current manag ement. SR/MODL Voice ID: [id number] Report ID: [id number]
[2022-07-22] MEDS: BISOPROLOL 5 MG TABLET PO SCH (17:10)
--- NOTE | 2022-07-22 17:41 | EKG ---
Test Date: 2022-07-19 Test Time: 17:17:40 Casino Dealer: ROSY MEASUREMENT RESULTS: Intervals: Rate: 109 FL: 136 QRSD: 86 QT: 370 QTc: 498 [place]: P: 86 FL: 136 QRS: 104 T: 105 INTERPRETIVE STATEMENTS: Sinus tachycardia Rightward axis Cannot rule out Inferior infarct, age undetermined Abnormal ECG Compared to ECG 02/03/2012 13:45:22 Myocardial infarct finding now present ST (T wave) deviation no longer present Electronically Signed On 07-22-22 17:36:52 CDT by Ran Jo
--- NOTE | 2022-07-22 17:41 | EKG ---
Test Date: 2022-07-19 Test Time: 18:28:09 Marketing Teacher: ROSY MEASUREMENT RESULTS: Intervals: Rate: 115 DE: 136 QRSD: 78 QT: 348 QTc: 481 [place]: P: 80 DE: 136 QRS: 103 T: 104 INTERPRETIVE STATEMENTS: Sinus tachycardia Rightward axis Low voltage QRS Nonspecific T wave abnormality Abnormal ECG Compared to ECG 02/03/2012 13:45:22 Low QRS voltage now present T-wave abnormality now present ST (T wave) deviation no longer present Electronically Signed On 07-22-22 17:36:40 CDT by Ran Jo
[2022-07-22] MEDS: ROSUVASTATIN 10 MG TAB PO SCH (20:39)
[2022-07-22] MEDS: predniSONE 20 MG TAB PO SCH (20:39)
[2022-07-22] MEDS: ZOLPIDEM TARTRATE 10 MG TABLET PO PRN (20:39)
[2022-07-23] MEDS: ALBUTEROL 2.5 MG/3 ML NEB SOL IH SCH ×4 (01:25→19:10)
[2022-07-23 04:55] LABS: Absolute Lymphocytes (CBC) 0.9 K/uL (0.7-4.9); Hematocrit 26.9 % (36.0-45.0); Lymphocytes % 9.3 % (15.3-44.8); MCV 97.2 fL (80-100); MPV 7.3 fL (7.6-11.3); RBC Red Blood Cell Count 2.77 M/uL (3.86-4.86)
[2022-07-23 05:09] VITALS: BMI 28.6
[2022-07-23 05:13] LABS: Magnesium 1.9 mg/dL (1.6-2.4); Potassium 3.5 mEq/L (3.5-5.1)
[2022-07-23 05:25] LABS: Blood Morphology Comment NOT SEEN (NOT SEEN); Platelet Estimate ADEQ
[2022-07-23] MEDS: LEVOTHYROXINE SOD 0.075 MG TAB PO SCH (05:58)
[2022-07-23] MEDS: INSULIN -REGULAR HUMAN 50 UNIT/0.5 ML ML SQ SCH ×4 (07:30→21:00)
[2022-07-23] MEDS: ARFORMOTEROL TARTRATE 15 MCG/2 ML VIAL.NEB NEB SCH ×2 (08:00→19:10)
[2022-07-23] MEDS: METFORMIN HCL 500 MG TAB PO SCH (08:00)
[2022-07-23] MEDS ORDERED: REGADENOSON 0.4 MG/5 ML SYR IV ONE (08:36)
[2022-07-23] MEDS: ENOXAPARIN 80 MG/0.8 ML SQ SCH ×2 (09:00→20:59)
[2022-07-23] MEDS: VENLAFAXINE HCL XR 75 MG CAP PO SCH (10:07)
[2022-07-23] MEDS: LOSARTAN POTASSIUM 50 MG TABLET PO SCH ×2 (10:08→20:59)
[2022-07-23] MEDS: DIVALPROEX DR 250 MG TAB PO SCH (10:08)
[2022-07-23] MEDS: ASPIRIN 81 MG CHEWABLE TABLET PO SCH (10:08)
[2022-07-23] MEDS: predniSONE 20 MG TAB PO SCH ×2 (10:08→21:00)
[2022-07-23] MEDS: FUROSEMIDE 20 MG/ 2ML VIAL IV SCH (10:09)
[2022-07-23] MEDS: BUPRENORPHINE SL SCH ×2 (10:41→21:00)
[2022-07-23] MEDS: [UNRECOGNIZED DRUG - OTHER] SL SCH ×2 (10:41→21:00)
--- NOTE | 2022-07-23 12:54 | RAD REPORT ---
EXAM DESCRIPTION: NM - Rest Stress Cardiac Imaging - 07/23/2022 10:02 am CLINICAL HISTORY: ELEVATED TROPONIN Chest pain. COMPARISON: ECHOCARDIOGRAM dated 06/18/2012; NM CARDIAC IMG R OR S ONLY dated 06/18/2012 TECHNIQUE: The patient was administered approximately 10.8 mCi of Tc 99m Sestamibi prior to resting SPECT imaging of the heart. The patient was then administered approximately 28.2 mCi of Tc 99m Sestam ibi following exercise or pharmacologic stress. Multiplanar SPECT images were reviewed. FINDINGS: No stress induced ischemic defect is seen to suggest stress induced ischemia. Large fixed defect involves the apical and mid segments of the anterior wall, extending along the adjacent septal and lateral bay. The defect appears more extensive than on the prior exam. The previously noted in ferior wall defect is not visualized, and could have been artifactual. The end diastolic volume is 98 ml, the end systolic volume is 50 ml, and the ejection fraction is 49 %. IMPRESSION: No evidence of scintigraphic stress induced ischemia. Large fixed defect involving the anterior wall apex and mid segments, extending along the adjacent se ptal and lateral bay concerning for myocardial infarct. This appears to be larger than on the prior exam of 2012. Left ventricular ejection fraction approaches limit of normal, 49%.
--- NOTE | 2022-07-23 12:57 | ECHO ---
HEIGHT: 5 ft 7 in WEIGHT: 183 lb 1 oz DATE OF STUDY: 07/23/[address]: Jim Dodson NP 2-DIMENSIONAL: YES M.MODE: YES DOPPLER: YES COLOR FLOW: YES TDS: PORTABLE: YES DEFINITY: BUBBLE STUDY: DIAGNOSIS: CONGESTIVE HEART FAILURE, CHRONIC OBSTRUCTIVE PULMONARY DISEASE, HYPOTENSION CARDIAC HISTORY: CATHERIZATION: NO SURGERY: NO PROSTHETIC VALVE: NO PACEMAKER: NO MEASUREMENTS (cm) DIASTOLIC (NORMALS) SYSTOLIC (NORMALS) IVSd 1.1 (0.6-1.2) LA Diam 3.1 (1.9-4.0) LVEF 50% LVIDd 3.5 (3.5-5.7) LVIDs 2.9 (2.0-3.5) %FS 19% LVPWd 1.1 (0.6-1.2) Ao Diam 2.3 (2.0-3.7) 2 DIMENSIONAL ASSESSMENT: RIGHT ATRIUM: NORMAL LEFT ATRIUM: NORMAL RIGHT VENTRICLE: NORMAL LEFT VENTRICLE: NORMAL TRICUSPID VALVE: NORMAL MITRAL VALVE: MILD MITRAL REGURGITATION PULMONIC VALVE: NOT WELL SEEN AORTIC VALVE: NORMAL PERICARDIAL EFFUSION: NONE AORTIC ROOT: NORMAL LEFT VENTRICULAR WALL MOTION: MILD APICAL HYPOKINESIS DOPPLER/COLOR FLOW: SEE BELOW COMMENTS: 1. VERY POOR WINDOWS 2. LEFT VENTRICULAR EJECTION FRACTION APPEARS NORMAL AT 50% 3. MILD APICAL HYPOKINESIS 4. RECOMMEND CONTRAST ECHOCARDIOGRAM TECHNOLOGIST: JUNIOR HENDRIX
--- NOTE | 2022-07-23 13:21 | TREADPHA ---
DX: ELEVATED TROPONIN Date of Study: 07/23/2022 Ht: 5' 7 " Wt: 183 lb 1 oz Consulting Physician: SB MEDICATIONS: TYLENOL, ASPIRIN, ZEBETA, DEPAKOTE, LOVENOX, LASIX, NOVOLIN-R, SYNTHROID, COZAAR, GLUCOPHAGE, ZOFRAN, DELTASONE, CRESTOR, EFFEXOR, AMBIEN HISTORY: 62 YEAR OLD FEMALE WITH COMPLAINTS OF SHORTNESS OF BREATH. HISTORY OF DIABETES MELLITUS, CHRONIC OBSTRUCTIVE PULMONARY DISEASE, HYPERTENSION, HYPERLIPIDEMIA, CONGESTIVE HEART FAILURE, HYPOTHYROIDISM, NON-SMOKER, NON-DRINKER PHYSICIAL EXAMINATION: RESTING B.P.: 132/76 RESTING H.R.: 80 RESTING EKG: NORMAL SINUS RHYTHM WITH T WAVE DEPRESSION IN V1 AND V2 PROTOCOL: PHARMACOLOGIC EXERCISE TIME: 3:30 B.P. AT PEAK STRESS: 133/75 IMPRESSION: LEXISCAN INJECTED, FOLLOWED BY CARDIOLITE PER PROTOCOL. SEE NUCLEAR MEDICINE REPORT. NO SUPRAVENTRICULAR TACHYCARDIA, VENTRICULAR TACHYCARDIA, PREMATURE VENTRICULAR COMPLEXES. PATIENT HAD ONE PREMATURE ATRIAL COMPLEX IN RECOVERY. PATIENT REPORTS NO CHEST PAIN. NO ELECTROCARDIOGRAM CHANGES WITH LEXISCAN.
[2022-07-23] MEDS: BISOPROLOL 5 MG TABLET PO SCH (16:32)
--- NOTE | 2022-07-23 17:53 | PN ---
Date of Progress Note: 07/23/2022 Subjective: Seen by bedside. There is no chest pain. No shortness of breath. She is resting well. No nausea, vomiting, or diarrhea. Review of Systems: No chest pain, shortness of breath, orthopnea, cough. No nausea, vomiting, diarrhea. No dysuria, po lyuria, or urinary urgency. All other systems reviewed and they were negative. Physical Examination: Vital Signs: Reviewed. Head and Neck: Pupils are equal, reactive to light. Intact eye movements. No JVD. No cervical lym phadenopathy. Neck is supple. Thyroid is not enlarged. Lungs: Clear to auscultation bilaterally. No rhonchi, wheezing, or crackles. No accessory muscle u se. Heart: Regular rate and rhythm. No extra sounds. Abdomen: Soft, nontender. Bowel sounds positive. No organomegaly. No masses or hernia. No rigidi ty or rebound. Extremities: No edema, clubbing, or cyanosis. Intact pulses. Skin: No rash. Neurologic: Alert, awake, oriented x3. No acute focal deficits appreciated. Investigations: Echo showed ejection fraction at 50% and the stress test showed no stress-induced is chemia. Assessment And Recommendations: 1.Elevated troponin with borderline ejection fraction on echo with a stress test and no ischemia is noted. I will recommend to continue medical management with congestive heart failure. 2.Diastolic congestive heart failure. Recommend to continue with diuresis, switch to oral Lasix 40 mg once daily, and she can be followed as an outpatient. Cardiolog y will sign off on this case. SR/MODL Voice ID: [id number] Report ID: [id number]
[2022-07-23] MEDS: BENZONATATE 100 MG CAP PO PRN (20:59)
[2022-07-23] MEDS: ROSUVASTATIN 10 MG TAB PO SCH (20:59)
[2022-07-23] MEDS: ZOLPIDEM TARTRATE 10 MG TABLET PO PRN (20:59)
[2022-07-24] MEDS: ALBUTEROL 2.5 MG/3 ML NEB SOL IH SCH ×3 (01:38→15:23)
[2022-07-24] MEDS: LEVOTHYROXINE SOD 0.075 MG TAB PO SCH (06:11)
[2022-07-24] MEDS: INSULIN -REGULAR HUMAN 50 UNIT/0.5 ML ML SQ SCH ×3 (07:30→16:30)
[2022-07-24] MEDS: ARFORMOTEROL TARTRATE 15 MCG/2 ML VIAL.NEB NEB SCH (07:55)
[2022-07-24 08:18] VITALS: O2SAT 96
[2022-07-24] MEDS: FUROSEMIDE 20 MG/ 2ML VIAL IV SCH (09:23)
[2022-07-24] MEDS: ENOXAPARIN 80 MG/0.8 ML SQ SCH (09:23)
[2022-07-24] MEDS: VENLAFAXINE HCL XR 75 MG CAP PO SCH (09:23)
[2022-07-24] MEDS: predniSONE 20 MG TAB PO SCH (09:24)
[2022-07-24] MEDS: LOSARTAN POTASSIUM 50 MG TABLET PO SCH (09:24)
[2022-07-24] MEDS: DIVALPROEX DR 250 MG TAB PO SCH (09:24)
[2022-07-24] MEDS: METFORMIN HCL 500 MG TAB PO SCH (09:24)
[2022-07-24] MEDS: ASPIRIN 81 MG CHEWABLE TABLET PO SCH (09:24)
[2022-07-24] MEDS: [UNRECOGNIZED DRUG - OTHER] SL SCH (09:32)
[2022-07-24] MEDS: BUPRENORPHINE SL SCH (09:32)
[2022-07-24] MEDS: BISOPROLOL 5 MG TABLET PO SCH (17:53)
[2022-07-24 17:55] VITALS: BP 128/66
[2022-07-24 18:01] VITALS: TEMP 97.3
[2022-07-26 13:53] LABS: 24 HR VOLUME 800 mL/24 h; Epinephrine Level 6 mcg/24 h (2-24)
== END 2022-07-24 18:00 | disposition home health service (06) | DRG 871 ==
LOC: ER 16:28 → ERHOLD 19:55 → 3RD-ICU 21:08 → 2ND 07-23 12:52
PROVIDERS: ADMIT Internal Medicine; ATTEND Hospitalist
PROC: 5A09457 Assistance with Respiratory Ventilation, 24-96 Consecutive Hours, Continuous Positive Airway Pressure (ICD-10-PCS; principal; 2022-07-19)
DX: A41.9 Sepsis, unspecified organism (principal); I50.33 Acute on chronic diastolic (congestive) heart failure; J18.9 Pneumonia, unspecified organism; R65.21 Severe sepsis with septic shock; J96.21 Acute and chronic respiratory failure with hypoxia; J44.1 Chronic obstructive pulmonary disease with (acute) exacerbation; J44.0 Chronic obstructive pulmonary disease with (acute) lower respiratory infection; J20.0 Acute bronchitis due to Mycoplasma pneumoniae; I11.0 Hypertensive heart disease with heart failure; E11.9 Type 2 diabetes mellitus without complications; F32.A Depression, unspecified; E05.90 Thyrotoxicosis, unspecified without thyrotoxic crisis or storm; E78.5 Hyperlipidemia, unspecified; E03.9 Hypothyroidism, unspecified; R77.8 Other specified abnormalities of plasma proteins; Z60.2 Problems related to living alone; Z98.51 Tubal ligation status; Z99.81 Dependence on supplemental oxygen; Z87.891 Personal history of nicotine dependence; Z20.822 Contact with and (suspected) exposure to COVID-19
CPT/HCPCS: 0240U; 36415; 51702; 71045; 71275; 74175; 78452; 80048; 80053; 80202; 81001; 81003; 81015; 81050; 82384; 82805; 82947; 83036; 83497; 83605; 83735; 83835; 83880; 84132; 84145; 84439; 84443; 84484; 85014; 85018; 85025; 85610; 85730; 86850; 86900; 86901; 87040; 87070; 87086; 87088; 87205; 93005; 93017; 93306; 94010; 94760; 97116; 97161; 97530; 99285; A9500; J1100; J1815; J1940; J2785; J2920; J3475; J3480; J3535; J7030; J7050; J7120; J7512; J7605; J7613; J7614; J7644; Q9967

== ENCOUNTER 2025-02-09 14:55 | Inpatient (IN) | payer OTHER ==
--- OUTSIDE RECORDS SUMMARY | 2025-02-09 15:06 | XMS REPORT | Continuity of Care Document ---
Author Name Unknown Address [address] [facility]. [address] [place] [address] [facility] Address [address] [facility]. [address] [place] [address] Care Team Providers Care Second Grade Teacher Name Role Phone Magan RODRIGUEZ, Angelica Castro Primary Care Physician [phone] IVETTE ARTEAGA Attending Clinician Unavailable PRITI BARBOUR Attending Clinician Unavailable BROCK HARPER Attending Clinician Unavailable Doctor Unassigned, [place] Attending Clinician U ARNEL Iyer Attending Clinician Unavailab ARNEL Langley Attending Clinician Unavailab Arnel Langley DO Attending Clinician [phone] Geovanny Fontanez RN Attending Clinician Unavail able MANOLO HERNANDEZ Attending Clinician Unavailab Alexandria Alcocer DO Attending Clinician [phone] Mary Bellamy MD Attending Clinician Manolo Hernandez MD Attending Clinician [phone] RADIOLOGY Attending Clinician Unavailable Radiology Attending Clinician Unavailable EDDIE GALINDO Attending Clinician Unavailable Paz Stafford Attending Clinician [phone] Eddie Galindo MD Attending Clinician [phone] MARCELLE FELIPE Attending Clinician Unavailable Marcelle Uriarte Attending Clinician [phone] Radha Casey MD K.HJose Roberto Attending Clinician + [phone] Bridget BOSWELL Arnel Attending Clinician [phone] Doctor Unassigned, [place] Attending Clinician U navailable Brock Harper DO Attending Clinician [phone] Matt Lester Cardiology Attending Clinician Unavailable RADHA CASEY K.HJose Roberto Attending Clinician UnavailGRACE Kim Attending Clinician Unavailelizabeth Webb MD, Grace Franklin Attending Clinician [phone] HERBERT LOOMIS Attending Clinician Unavail able CHRISTINE OMSES Attending Clinician Unavail erica Moses MD, Christine Lambert Attending Clinician [phone] Pob, [facility] Main Attending Clinician UnavailManuel Rosen MD Attending Clinician [phone]- [phone] Shamika Crespo MA Attending Clinician Unavail able Edi RTRenee Attending Clinician Unavailab le 2, [facility] Attending Clinician Unavailable JULIANA HOOKER Attending Clinician Unavaila JESUS Rojas Attending Clinician Unavailable Herbert Loomis DO Attending Clinician [phone] Only, Ad[facility] Test Attending Clinician Unavailable MANOLO HERNANDEZ Admitting Clinician Unavailab Manolo Blankenship MD Admitting Clinician [phone] ANGELICA SEALS Admitting Clinician Unavailable EDDIE GALINDO Admitting Clinician Unavailable Eddie Galindo MD Admitting Clinician [phone] MARCELLE FELIPE Admitting Clinician Unavailable BROCK HARPER Admitting Clinician Unavailable Matt Lester Cardiology Admitting Clinician Unavailable GRACE WEBB Admitting Clinician UnavailCHRISTINE Donaldson Admitting Clinician Unavail able Payers Payer Name Policy Type Policy Number Effective Date Expirati on Date Source [facility] DUAL COMP HMO-POS D SNP [id number] 2021 00:00:00 [place] [id number] 2023 00:00:00 Problems Condition Name Condition Details Condition Category Status Onset Date Resolution Date Last Treatment Date Treating Clinician Comments Source Essential hypertensi on Essential hypertensi on Disease Active 3-18 00:00: 00 [facility] Shortness of breath Shortness of breath Disease Active 3-18 00:00: 00 [facility] Coronary artery calcificat ion Coronary artery calcificat ion Disease Active 3-18 00:00: 00 [facility] Mixed hyperlipid emia Mixed hyperlipid emia Disease Active 3-18 00:00: 00 [facility] GERMAN (acute kidney injury) GERMAN (acute kidney injury) Disease Active 2023-05 2-13 00:00: 00 [facility] Sepsis due to pneumonia Sepsis due to pneumonia Disease Active 8-15 00:00: 00 [facility] Multifocal pneumonia Multifocal pneumonia Disease Active 4-28 00:00: 00 [facility] Obesity (BMI 30-39.9) Obesity (BMI 30-39.9) Disease Active 4-28 00:00: 00 [facility] Pneumonia Pneumonia Disease Active 4-20 00:00: 00 [facility] Allergies, Adverse Reactions, Alerts Allergy Name Allergy Type Status Severity Reaction(s) Onset Date Inactive Date Treating Clinician Comments Source No Known Allergie s DA Active U 6-17 00:00: 00 [facility] No Known Allergie s DA Active U 6-14 00:00: 00 [facility] NO KNOWN ALLERGIE S Drug Class Active [facility] Social History Social Habit Start Date Stop Date Quantity Comments Source [facility] ASSERTION Not [facility] History of tobacco use Cigarette Smoker [facility] History of Social function 2024-07-20 00:00:00 2024-07-20 00:00:00 [facility] Alcoholic beverage intake 2024-07-20 00:00:00 2024-07-20 00:00:00 Current non-drinker of alcohol (finding) [facility] Cigarettes smoked current (pack per day) - Reported 2023-12-18 00:00:00 2023-12-18 00:00:00 [facility] Cigarette pack-years 2023-12-18 00:00:00 2023-12-18 00:00:00 [facility] Tobacco use and exposure 2023-12-18 00:00:00 2023-12-18 00:00:00 Smokeless tobacco non-user [facility] Alcohol intake 2023-03-19 00:00:00 2023-03-19 00:00:00 Current non-drinker of alcohol (finding) [facility] Exposure to SARS-CoV-2 (event) 2022-03-17 00:00:00 2022-03-27 13:42:00 Not sure [facility] Sex assigned at 1960 00:00:00 1960 00:00:00 [facility] Smoking Status Start Date Stop Date Source Ex-smoker 2023-12-18 00:00:00 2023-12-18 [facility]00[facility] Ordered Medication Name Filled Medication Name Start Date Stop Date Current Medication? Ordering Clinician Indication Dosage Frequency Signature (SIG) Comments Components Source Daliresp 500 mcg tablet 11-23 00:00: 00 Yes 1mcg David Crystal roflumilast 500 mcg tablet 11-19 00:00: 00 Yes mcg David Crystal zolpidem 10 mg tablet 11-16 00:00: 00 Yes mg David Crystal Daliresp 500 mcg tablet 11-02 00:00: 00 Yes 1mcg David Crystal Daliresp 500 mcg tablet 10-28 00:00: 00 Yes 1mcg David Crystal Yupelri 175 mcg/3 mL solution for nebulizatio n 10-28 00:00: 00 Yes 3mcg/3 mL David Crystal Ambien 10 mg tablet 08-24 00:00: 00 Yes 1mg David Crystal Brovana 15 mcg/2 mL solution for nebulizatio n 08-24 00:00: 00 Yes 2mcg/2 mL David Crystal furosemide 20 mg tablet 08-06 00:00: 00 Yes mg David Crystal predniSONE 10 mg tablet 07-20 00:00: 00 Yes [id number] 10mg Take 1 tablet by mouth in the morning. [facility] losartan 50 mg tablet 07-20 00:00: 00 07-21 04:59 :00 No [id number] 50mg Take 1 tablet by mouth every morning and evening. [facility] losartan 50 mg tablet 07-17 00:00: 00 Yes mg David Crystal metformin ER 500 mg tablet,exte nded release 24 hr 07-17 00:00: 00 Yes mg David Crystal divalproex ER 250 mg tablet,exte nded release 24 hr 07-17 00:00: 00 Yes mg David Crystal rosuvastati n 40 mg tablet 07-17 00:00: 00 Yes mg David Crystal levothyroxi ne 125 mcg tablet 07-17 00:00: 00 Yes mcg David Crystal venlafaxine ER 75 mg capsule,ext ended release 24 hr 07-05 00:00: 00 Yes mg David Crystal venlafaxine ER 150 mg capsule,ext ended release 24 hr 07-05 00:00: 00 Yes mg David Crystal omeprazole 20 mg capsule,del ayed release 07-05 00:00: 00 Yes mg David Crystal famotidine 40 mg tablet 2 00:00: 00 Yes mg David Crystal spironolact one 25 mg tablet 2-11 00:00: 00 Yes mg David Crystal prednisone 10 mg tablet 05-26 00:00: 00 Yes mg David Crystal Anoro Ellipta 62.5 mcg-25 mcg/actuati on powder for inhalation 05-26 00:00: 00 Yes mcg/act uation David Crystal furosemide 20 mg tablet 05-20 00:00: 00 Yes mg David Crystal Ventolin HFA 90 mcg/actuati on aerosol inhaler 05-15 00:00: 00 Yes mcg/act uation David Crystal buprenorphi ne 8 mg-naloxone 2 mg sublingual film - 00:00: 00 Yes mg David Crystal rosuvastati n 40 mg tablet 2023-05 15:24: 40 Yes 40mg Take 1 tablet by mouth at bedtime. [facility] levothyroxi ne 125 mcg tablet 2023-05 15:24: 40 Yes 125ug Take 1 tablet by mouth in the morning. [facility] OMEPRAZOLE ORAL 2023-05 15:24: 40 Yes 20mg Take 20 mg by mouth in the morning. [facility] Venlafaxine 225 mg TR24 2023-05 15:24: 40 Yes 225mg Take 225 mg by mouth in the morning. [facility] divalproex ER 250 mg 24 hr tablet 2023-05 15:24: 40 Yes 250mg Take 1 tablet by mouth every 24 (twenty-fo ur) hours. [facility] famotidine 40 mg tablet 2023-05 15:24: 40 Yes 40mg Take 1 tablet by mouth at bedtime. [facility] zolpidem 10 mg tablet 2023-05 15:24: 40 Yes 10mg Take 1 tablet by mouth at bedtime as needed for Insomnia. [facility] furosemide 20 mg tablet 2023-05 15:24: 35 04-18 00:00 :00 No 20mg Take 1 tablet by mouth in the morning and 1 tablet at noon and 1 tablet in the evening. [facility] Potassium Bicarb-Citr ic Acid (EFFER-K) effervescen t tablet 40 mEq 2023-05 13:00: 00 04-18 14:37 :00 No 40meq 40 mEq, Oral, ONCE, 1 dose, On 04/18/24 at 0700, Routine [facility] aspirin 81 mg chewable tablet 2023-05 00:00: 00 Yes [id number] 81mg Take 1 tablet by mouth in the [facility]. [facility] KCL 20 mEq tablet 2023-05 00:00: 00 Yes [id number] 40meq Take 2 tablets by mouth in the morning. [facility] ipratropium (ATROVENT) 0.02 % nebulizer solution 0.5 mg 2023-05 20:00: 00 04-18 21:24 :40 No .5mg 0.5 mg, Inhalation , TID, First dose on 04/17/24 at 1400, Until Discontinu ed, Routine [facility] levalbutero l (XOPENEX) nebulizer solution 0.63 mg 2023-05 20:00: 00 04-18 21:24 :40 No .63mg 0.63 mg, Inhalation , TID, First dose on 04/17/24 at 1400, Until Discontinu ed, Routine [facility] aspirin chewable tablet 81 mg 2023-05 15:00: 00 04-18 21:24 :40 No 81mg 81 mg, Oral, DAILY, First dose on 04/17/24 at 0900, Until Discontinu ed, Routine [facility] predniSONE (DELTASONE) tablet 10 mg 2023-05 15:00: 00 04-18 21:24 :40 No 10mg 10 mg, Oral, DAILY, First dose on 04/17/24 at 0900, Until Discontinu ed [facility] levothyroxi ne (SYNTHROID) tablet 125 mcg 2023-05 12:00: 00 04-18 21:24 :40 No 125ug 125 mcg, Oral, QAM-0600, First dose on 04/17/24 at 0600, Until Discontinu ed, Routine [facility] magnesium sulfate in water 2 gram/50 mL (4 %) infusion 2 g 2023-05 06:15: 00 04-17 07:00 :00 No 2g 2 g, IV Piggyback, Administer over 60 Minutes, ONCE, 1 dose, On 04/17/24 at 0015, Routine [facility] KCL (KLOR-CON M20) tablet 40 mEq 2023-05 06:00: 00 04-17 05:57 :00 No 40meq 40 mEq, Oral, ONCE, 1 dose, On 04/17/24 at 0000, Routine [facility] heparin (porcine) injection 5,000 Units 2023-05 04:00: 00 04-18 21:24 :40 No 5000U 5,000 Units, Subcutaneo us, Q8H, First dose on Fri04/16/24 at 2200, Until Discontinu ed, Routine [facility] Sliding Scale Insulin - Lispro (HumaLOG) 2023-05 03:00: 00 04-18 21:24 :40 No 0U Subcutaneo us, TID MEALS+HS, First dose on Fri04/16/24 at 2100, Until Discontinu ed, Routine [facility] buprenorphi ne-naloxone (SUBOXONE) 8-2 mg sublingual film 8 mg 2023-05 02:00: 00 04-18 21:24 :40 No 8mg 8 mg, Sublingual , BID, First dose on Fri04/16/24 at 2000, Until Discontinu ed, Routine [facility] divalproex ER (DEPAKOTE ER) 24 hr tablet 250 mg 2023-05 23:45: 00 04-18 21:24 :40 No 250mg 250 mg, Oral, Q24H, First dose on Fri04/16/24 at 1745, Until Discontinu ed, Routine [facility] ipratropium -albuteroL (DUONEB) 0.5 mg-3 mg(2.5 mg base)/3 mL nebulizer solution 3 mL 2023-05 23:41: 18 04-18 21:24 :40 No 3mL 3 mL, Inhalation , QIDPRN, Starting on Fri04/16/24 at 1741, Until Fri04/18/24 at 1524, Routine, Wheezing, Shortness of Breath, Chest tightness, Bronchospa sm [facility] zolpidem (AMBIEN) tablet 10 mg 2023-05 23:33: 42 04-18 21:24 :40 No 10mg 10 mg, Oral, QHSPRN, Starting on Fri04/16/24 at 1733, Until Fri04/18/24 at 1524, Routine, Insomnia [facility] ondansetron (ZOFRAN) tablet 4 mg 2023-05 23:22: 35 04-18 21:24 :40 No 4mg 4 mg, Oral, TIDPRN MEALS, Starting on Fri04/16/24 at 1722, Until Fri04/18/24 at 1524, Routine, Nausea and Vomiting (N/V) [facility] albuterol (VENTOLIN) inhaler 2 Puff 2023-05 22:47: 09 04-18 21:24 :40 No 2{puff} [facility] potassium chloride in water 10 mEq/100 mL RTU 10 mEq 2023-05 18:45: 00 04-16 20:05 :00 No 10meq 10 mEq, IV Piggyback, ONCE, 1 dose, On Fri04/16/24 at 1245, Administer over 60 Minutes, 100 mL [facility] NaCl 0.9% (NS) bolus infusion 1,000 mL 2023-05 18:00: 00 04-16 19:37 :00 No 1000mL at 999 mL/hr, 1,000 mL, IV Infusion, ONCE, 1 dose, On Fri04/16/24 at 1200, MIL [facility] NaCl 0.9% (NS) bolus infusion 1,000 mL 2023-05 16:45: 00 04-16 17:14 :00 No 1000mL at 999 mL/hr, 1,000 mL, IV Infusion, ONCE, 1 dose, On Fri04/16/24 at 1045, MIL [facility] magnesium sulfate in water 2 gram/50 mL (4 %) infusion 2 g 2023-05 16:30: 00 04-16 16:43 :00 No 2g 2 g, IV Piggyback, Administer over 60 Minutes, ONCE, 1 dose, On Fri04/16/24 at 1030, Routine [facility] KCL (KLOR-CON M20) tablet 40 mEq 2023-05 16:00: 00 04-16 16:08 :00 No 40meq 40 mEq, Oral, ONCE, 1 dose, On Fri04/16/24 at 1000, MIL [facility] levothyroxi ne (SYNTHROID) tablet 150 mcg 12-19 11:00: 00 Yes 150ug 150 mcg, Oral, QAM-0600, First dose on Fri12/20/23 at 0600, Until Discontinu ed, Routine [facility] metFORMIN 500 mg tablet 12-19 10:51: 00 Yes 500mg Take 1 tablet by mouth in the morning. [facility] rosuvastati n 10 mg tablet 12-19 10:51: 00 Yes 10mg Take 10 mg by mouth at bedtime. [facility] Levothyroxi ne 150 mcg capsule 12-19 10:51: 00 Yes 150ug Take 150 mcg by mouth daily. [facility] buprenorphi ne-naloxone (SUBOXONE) 8-2 mg sublingual film 12-19 10:51: [address] 1 Film under the tongue in the morning and 1 Film in the evening. [facility] Cholecalcif sowmya, Vitamin D3, 5,000 unit capsule 12-19 10:51: 00 Yes Take by mouth. [facility] aspirin 81 mg chewable tablet 12-19 10:51: 00 04-18 00:00 :00 No 325mg Take 325 mg by mouth in the morning. [facility] zolpidem (AMBIEN) tablet 5 mg 12-19 02:00: 00 Yes 5mg 5 mg, Oral, QHS, First dose on Fri12/19/23 at 2100, Until Discontinu ed, Routine [facility] rosuvastati n (CRESTOR) tablet 10 mg 12-19 02:00: 00 Yes 10mg 10 mg, Oral, QHS, First dose on Fri12/19/23 at 2100, Until Discontinu ed, Routine [facility] methylPREDN ISolone sod succ (SOLU-MEDRO L (PF)) injection 40 mg 12-19 01:00: 00 Yes 40mg 40 mg, Intravenou s, Q12H, First dose (after last modificati on) on Fri12/19/23 at 2000, Until Discontinu ed, 1 mL [facility] dextrometho rphan-guaif enesin 10-100 mg/5 mL solution 12-19 00:00: 00 01-01 04:59 :00 No [id number] 5mL Take 5 mL by mouth every 6 (six) hours as needed for Cough for up to 12 days. [facility] amoxicillin -clavulanat e (AUGMENTIN) 875-125 mg per tablet 12-19 00:00: 00 12-30 04:59 :00 No [id number] 1{tbl} Take 1 tablet by mouth in the morning and 1 tablet in the evening. Do all this for 10 days. [facility] guaiFENesin (MUCINEX) 600 mg tablet 12-19 00:00: 00 12-30 04:59 :00 No [id number] 600mg Take 1 tablet by mouth every 12 (twelve) hours for 10 days. [facility] predniSONE 10 mg tablet 12-19 00:00: 00 12-28 04:59 :00 No [id number] Take 4 tablets by mouth daily for 2 days, THEN 2 tablets daily for 2 days, THEN 1 tablet daily for 2 days, THEN 0.5 tablets daily for 2 days. [facility] aspirin EC tablet 81 mg 12-18 21:15: 00 Yes 81mg 81 mg, Oral, DAILY, First dose on Fri12/19/23 at 1615, Until Discontinu ed, [facility]ine [facility] ipratropium -albuteroL (DUONEB) 0.5 mg-3 mg(2.5 mg base)/3 mL nebulizer solution 3 mL 12-18 21:00: 53 Yes 3mL 3 mL, Inhalation , Q6HPRN, Starting on Fri12/19/23 at 1600, Until Discontinu ed, Routine, Wheezing [facility] NaCl 0.9% (NS) bolus infusion 500 mL 12-18 18:45: 00 12-18 20:00 :00 No 500mL at 999 mL/hr, 500 mL, IV Infusion, ONCE, 1 dose, On Fri12/19/23 at 1345, STAT [facility] enoxaparin (LOVENOX) injection 30 mg 12-18 14:00: 00 Yes 30mg 30 mg, Subcutaneo us, DAILY, First dose on Fri12/19/23 at 0900, Until Discontinu ed, Routine [facility] piperacilli n-tazobacta m (ZOSYN) 3.375 g in NaCl 0.9% (NS) 100 mL MINI-BAG 12-18 10:00: 00 12-25 09:59 :00 No 3.375g 3.375 g, IV Piggyback, Q8H ABX, 21 doses, First dose on Fri12/19/23 at 0500, Last dose on Fri12/25/23 at 2100, Administer over 4 Hours, 100 mL, Reason for Anti-Infec tive: Documented Infection, Documented Infection Site: Respirator y, Duration of Therapy: 7 days [facility] Sliding Scale Insulin - Lispro (HumaLOG) 12-18 02:00: 00 Yes Subcutaneo us, TID MEALS+HS, First dose on Fri12/18/23 at 2100, Until Discontinu ed, Routine [facility] NaCl 0.9% (NS) IV infusion 1,000 mL 12-18 01:30: 00 Yes 1000mL at 80 mL/hr, IV Infusion, CONTINUOUS , Starting on Fri12/18/23 at 2030, Until Discontinu ed, Routine [facility] methylPREDN ISolone sod succ (SOLU-MEDRO L (PF)) injection 40 mg 12-18 01:30: 00 12-18 13:38 :50 No 40mg 40 mg, Intravenou s, Q6H, First dose on Fri12/18/23 at 2030, Until Discontinu ed, 1 mL [facility] NaCl 0.9% (NS) IV infusion 1,000 mL 12-17 23:30: 00 12-18 01:27 :15 No 1000mL at 125 mL/hr, IV Infusion, CONTINUOUS , Starting on Aye 12/18/23 at 1830, Until Aye 12/18/23 at 2027, Routine [facility] azithromyci n (ZITHROMAX) 500 mg in NaCl 0.9% (NS) 250 mL VIAL-MATE IV piggyback 12-17 23:30: 00 12-18 01:25 :50 No 500mg 500 mg, IV Piggyback, Q24H ABX, 3 doses, First dose on Aye 12/18/23 at 1830, Last dose on Fri12/20/23 at 1830, Administer over 60 Minutes, 250 mL, Reason for Anti-Infec tive: Documented Infection, Documented Infection Site: Respirator y, Duration of Therapy: Once (ED) [facility] dextrose 50 % in water (D50W) injection 25 mL 12-17 23:15: 15 Yes 25mL [facility] ondansetron (ZOFRAN (PF)) injection 4 mg 12-17 23:15: 08 Yes 4mg [facility] HYDROcodone -acetaminop hen (NORCO 5) tablet 1 tablet 12-17 23:15: 01 12-19 23:14 :01 No 1{tbl} [facility] acetaminoph en (TYLENOL) tablet 650 mg 12-17 23:14: 56 Yes 650mg [facility] lactated ringers IV infusion 1,000 mL 12-17 22:00: 00 12-17 23:30 :00 No 1000mL at 999 mL/hr, 1,000 mL, IV Infusion, ONCE, 1 dose, On Aye 12/18/23 at 1700, MIL [facility] cefTRIAXone (ROCEPHIN) 1,000 mg in NaCl 0.9% (NS) 100 mL MINI-BAG 12-17 21:45: 00 12-18 00:45 :00 No 1000mg 1,000 mg, IV Piggyback, ONCE, 1 dose, On Aye 12/18/23 at 1645, Administer over 30 Minutes, 100 mL, Reason for Anti-Infec tive: Documented Infection, Documented Infection Site: Respirator y, Duration of Therapy: Once (ED) [facility] potassium chloride in water 10 mEq/100 mL RTU 10 mEq 12-17 21:15: 00 12-17 22:24 :00 No 10meq 10 mEq, IV Piggyback, ONCE, 1 dose, On Aye 12/18/23 at 1615, Administer over 60 Minutes, 100 mL [facility] magnesium sulfate in water 2 gram/50 mL (4 %) infusion 2 g 12-17 21:15: 00 12-17 21:22 :00 No 2g 2 g, IV Piggyback, Administer over 60 Minutes, ONCE, 1 dose, On Aye 12/18/23 at 1615, Routine [facility] KCL (KLOR-CON M20) tablet 40 mEq 12-17 20:30: 00 12-17 20:56 :00 No 40meq 40 mEq, Oral, ONCE, 1 dose, On Aye 12/18/23 at 1530, MIL [facility] NaCl 0.9% (NS) bolus infusion 500 mL 12-17 19:30: 00 12-17 21:04 :00 No 500mL at 999 mL/hr, 500 mL, IV Infusion, ONCE, 1 dose, On Aye 12/18/23 at 1430, STAT [facility] NaCl 0.9% (NS) bolus infusion 500 mL 09-23 15:15: 00 09-23 16:37 :00 No 500mL at 999 mL/hr, 500 mL, IV Infusion, ONCE, 1 dose, On Fri09/24/23 at 1015, STAT [facility] KCL (KLOR-CON M20) tablet 40 mEq 09-23 15:15: 00 09-23 15:26 :00 No 40meq 40 mEq, Oral, ONCE, 1 dose, On Fri09/24/23 at 1015, MIL [facility] losartan 50 mg tablet 2022-05 00:00: 00 Yes [id number] 50mg TAKE 1 TABLET BY MOUTH IN THE MORNING AND IN THE EVENING [facility] losartan 50 mg tablet 2022-05 00:00: 00 04-16 00:00 :00 No [id number] 50mg TAKE 1 TABLET BY MOUTH IN THE MORNING AND IN THE EVENING [facility] ANORO ELLIPTA 62.5-25 mcg/actuati on inhalation disk 07-26 00:00: 00 Yes [id number] INHALE 1 PUFF BY MOUTH DAILY [facility] ANORO ELLIPTA 62.5-25 mcg/actuati on inhalation disk 2021-05 00:00: 00 Yes [id number] INHALE 1 PUFF BY MOUTH DAILY [facility] Levothyroxi ne 150 mcg capsule 2021-05 14:23: 49 Yes 150ug Take 150 mcg by mouth daily. [facility] bisoprolol 5 mg tablet 2021-05 00:00: 00 Yes [id number] 5mg Take 1 tablet by mouth in the morning. [facility] losartan 50 mg tablet 2021-05 00:00: 00 03-11 00:00 :00 No [id number] 50mg Take 1 tablet by mouth in the morning and 1 tablet in the evening. [facility] losartan 50 mg tablet 2021-05 00:00: 00 03-27 00:00 :00 No [id number] TAKE 1 TABLET BY MOUTH TWICE DAILY [facility] bisoprolol 5 mg tablet 2021-05 00:00: 00 03-27 00:00 :00 No [id number] 5mg TAKE 1 TABLET BY MOUTH DAILY [facility] Magnesium Oxide 500 mg Tab 8-31 00:00: 00 Yes TAKE 1 TABLET BY MOUTH EVERY NIGHT [facility] ALBUTEROL 90 mcg/actuati on inhaler 7-27 00:00: 00 Yes [id number] INHALE 2 PUFFS BY MOUTH EVERY 6 HOURS NEEDED FOR WHEEZING OR SHORTNESS OF BREATH [facility] BISOPROLOL 5 mg tablet 4-19 00:00: 00 Yes [id number] 5mg TAKE 1 TABLET BY MOUTH DAILY [facility] LOSARTAN 50 mg tablet 3-14 00:00: 00 02-25 00:00 :00 No TAKE 1 TABLET BY MOUTH TWICE DAILY [facility] ANORO ELLIPTA 62.5-25 mcg/actuati on inhalation disk 2020-05 1-17 00:00: 00 04-09 00:00 :00 No [id number] INHALE 1 PUFF BY MOUTH DAILY [facility] bisoprolol 5 mg tablet 2020-05 0- 00:00: 00 08-21 00:00 :00 No [id number] 5mg Take 1 tablet by mouth daily. [facility] carvediloL 12.5 mg tablet 01-31 00:00: 00 03-02 00:00 :00 No 12.5mg Take 1 tablet by mouth 2 (two) times daily with meals. [facility] losartan 50 mg tablet 9-13 00:00: 00 07-16 00:00 :00 No 50mg Take 1 tablet by mouth 2 (two) times daily. [facility] metFORMIN 500 mg tablet 12-21 13:54: 01 Yes 500mg Take 500 mg by mouth daily. [facility] rosuvastati n 10 mg tablet 12-21 13:54: 01 Yes 10mg Take 10 mg by mouth at bedtime. [facility] Levothyroxi ne 150 mcg capsule 12-21 13:54: 01 Yes 150ug Take 150 mcg by mouth daily. [facility] buprenorphi ne-naloxone (SUBOXONE) 8-2 mg sublingual film 12-21 13:54: [address] 8 mg under the tongue 2 (two) times daily. [facility] aspirin 81 mg chewable tablet 12-21 13:54: 01 Yes 81mg Take 81 mg by mouth daily. [facility] Cholecalcif sowmya, Vitamin D3, 5,000 unit capsule 09-07 08:49: 27 Yes Take by mouth. [facility] albuterol (PROAIR HFA) 90 mcg/actuati on inhaler 07-27 00:00: 00 11-28 00:00 :00 No [id number] 2{puff} Inhale 2 Puffs every 6 (six) hours as needed for Wheezing or Shortness of Breath. [facility] umeclidiniu m-vilantero L (ANORO ELLIPTA) 62.5-25 mcg/actuati on inhalation disk 2019-05 00:00: 00 03-21 00:00 :00 No [id number] 1{puff} Inhale 1 Puff daily. [facility] Immunizations Ordered Immunization Name Filled Immunization Name Date Status Comments Source Influenza, adjuvanted, trivalent, PF (FLUAD) 2024-07-20 00:00:00 Completed [facility] Influenza Virus Vaccine 2023-12-18 13:40:00 Completed [facility] Influenza Virus Vaccine (3+ yrs) 2023-12-18 13:40:00 Completed [facility] Influenza High Dose 2023-12-18 13:40:00 Completed [facility] Pneumococcal 13 Conjugate, PCV13 (Prevnar 13) 2023-12-18 13:40:00 Completed [facility] SARS-COV-2 COVID-19 PFIZER VACCINE 2023-12-18 13:40:00 Completed [facility] SARS-COV-2 COVID-19 PFIZER SARAH-SUCROSE VACCINE (PADILLA TOP) 2023-12-18 13:40:00 Completed [facility] Influenza Virus Vaccine 2023-09-24 08:45:00 Completed [facility] Influenza Virus Vaccine (3+ yrs) 2023-09-24 08:45:00 Completed [facility] Influenza High Dose 2023-09-24 08:45:00 Completed [facility] Pneumococcal 13 Conjugate, PCV13 (Prevnar 13) 2023-09-24 08:45:00 Completed [facility] SARS-COV-2 COVID-19 PFIZER VACCINE 2023-09-24 08:45:00 Completed [facility] SARS-COV-2 COVID-19 PFIZER SARAH-SUCROSE VACCINE (PADILLA TOP) 2023-09-24 08:45:00 Completed [facility] Influenza Virus Vaccine 2023-07-08 00:00:00 Completed [facility] Influenza Virus Vaccine (3+ yrs) 2023-07-08 00:00:00 Completed [facility] Influenza High Dose 2023-07-08 00:00:00 Completed [facility] Pneumococcal 13 Conjugate, PCV13 (Prevnar 13) 2023-07-08 00:00:00 Completed [facility] SARS-COV-2 COVID-19 PFIZER VACCINE 2023-07-08 00:00:00 Completed [facility] SARS-COV-2 COVID-19 PFIZER SARAH-SUCROSE VACCINE (PADILLA TOP) 2023-07-08 00:00:00 Completed [facility] Influenza Virus Vaccine 2023-06-13 00:00:00 Completed [facility] Influenza Virus Vaccine (3+ yrs) 2023-06-13 00:00:00 Completed [facility] Influenza High Dose 2023-06-13 00:00:00 Completed [facility] Pneumococcal 13 Conjugate, PCV13 (Prevnar 13) 2023-06-13 00:00:00 Completed [facility] SARS-COV-2 COVID-19 PFIZER VACCINE 2023-06-13 00:00:00 Completed [facility] SARS-COV-2 COVID-19 PFIZER SARAH-SUCROSE VACCINE (PADILLA TOP) 2023-06-13 00:00:00 Completed [facility] Influenza Virus Vaccine 2023-05-15 00:00:00 Completed [facility] Influenza Virus Vaccine (3+ yrs) 2023-05-15 00:00:00 Completed [facility] Influenza High Dose 2023-05-15 00:00:00 Completed [facility] Pneumococcal 13 Conjugate, PCV13 (Prevnar 13) 2023-05-15 00:00:00 Completed [facility] SARS-COV-2 COVID-19 PFIZER VACCINE 2023-05-15 00:00:00 Completed [facility] SARS-COV-2 COVID-19 PFIZER SARAH-SUCROSE VACCINE (PADILLA TOP) 2023-05-15 00:00:00 Completed [facility] Influenza Virus Vaccine (3+ yrs) 2023-04-16 00:00:00 Completed [facility] Influenza High Dose 2023-04-16 00:00:00 Completed [facility] Pneumococcal 13 Conjugate, PCV13 (Prevnar 13) 2023-04-16 00:00:00 Completed [facility] SARS-COV-2 COVID-19 PFIZER SARAH-SUCROSE VACCINE (PADILLA TOP) 2023-04-16 00:00:00 Completed [facility] Influenza Virus Vaccine 2023-04-16 00:00:00 Completed [facility] SARS-COV-2 COVID-19 PFIZER VACCINE 2023-04-16 00:00:00 Completed [facility] Influenza Virus Vaccine 2023-04-16 00:00:00 Completed [facility] Influenza Virus Vaccine (3+ yrs) 2023-04-16 00:00:00 Completed [facility] Influenza High Dose 2023-04-16 00:00:00 Completed [facility] Pneumococcal 13 Conjugate, PCV13 (Prevnar 13) 2023-04-16 00:00:00 Completed [facility] SARS-COV-2 COVID-19 PFIZER VACCINE 2023-04-16 00:00:00 Completed [facility] SARS-COV-2 COVID-19 PFIZER SARAH-SUCROSE VACCINE (PADILLA TOP) 2023-04-16 00:00:00 Completed [facility] Influenza Virus Vaccine 2023-04-16 00:00:00 Completed [facility] Influenza Virus Vaccine (3+ yrs) 2023-04-16 00:00:00 Completed [facility] Influenza High Dose 2023-04-16 00:00:00 Completed [facility] Pneumococcal 13 Conjugate, PCV13 (Prevnar 13) 2023-04-16 00:00:00 Completed [facility] SARS-COV-2 COVID-19 PFIZER VACCINE 2023-04-16 00:00:00 Completed [facility] SARS-COV-2 COVID-19 PFIZER SARAH-SUCROSE VACCINE (PADILLA TOP) 2023-04-16 00:00:00 Completed [facility] Influenza Virus Vaccine 2023-03-19 12:48:18 Completed [facility] Influenza Virus Vaccine (3+ yrs) 2023-03-19 12:48:18 Completed [facility] Influenza High Dose 2023-03-19 12:48:18 Completed [facility] Pneumococcal 13 Conjugate, PCV13 (Prevnar 13) 2023-03-19 12:48:18 Completed [facility] SARS-COV-2 COVID-19 PFIZER VACCINE 2023-03-19 12:48:18 Completed [facility] SARS-COV-2 COVID-19 PFIZER SARAH-SUCROSE VACCINE (PADILLA TOP) 2023-03-19 12:48:18 Completed [facility] Influenza Virus Vaccine 2023-03-19 00:00:00 Completed [facility] Influenza Virus Vaccine (3+ yrs) 2023-03-19 00:00:00 Completed [facility] Influenza High Dose 2023-03-19 00:00:00 Completed [facility] Pneumococcal 13 Conjugate, PCV13 (Prevnar 13) 2023-03-19 00:00:00 Completed [facility] SARS-COV-2 COVID-19 PFIZER VACCINE 2023-03-19 00:00:00 Completed [facility] SARS-COV-2 COVID-19 PFIZER SARAH-SUCROSE VACCINE (PADILLA TOP) 2023-03-19 00:00:00 Completed [facility] Influenza Virus Vaccine 2023-03-11 00:00:00 Completed [facility] Influenza Virus Vaccine (3+ yrs) 2023-03-11 00:00:00 Completed [facility] Influenza High Dose 2023-03-11 00:00:00 Completed [facility] Pneumococcal 13 Conjugate, PCV13 (Prevnar 13) 2023-03-11 00:00:00 Completed [facility] SARS-COV-2 COVID-19 PFIZER VACCINE 2023-03-11 00:00:00 Completed [facility] SARS-COV-2 COVID-19 PFIZER SARAH-SUCROSE VACCINE (PADILLA TOP) 2023-03-11 00:00:00 Completed [facility] Influenza Virus Vaccine 2023-03-11 00:00:00 Completed [facility] Influenza Virus Vaccine (3+ yrs) 2023-03-11 00:00:00 Completed [facility] Influenza High Dose 2023-03-11 00:00:00 Completed [facility] Pneumococcal 13 Conjugate, PCV13 (Prevnar 13) 2023-03-11 00:00:00 Completed [facility] SARS-COV-2 COVID-19 PFIZER VACCINE 2023-03-11 00:00:00 Completed [facility] SARS-COV-2 COVID-19 PFIZER SARAH-SUCROSE VACCINE (PADILLA TOP) 2023-03-11 00:00:00 Completed [facility] SARS-COV-2 COVID-19 PFIZER SARAH-SUCROSE VACCINE (PADILLA TOP) 2021-06-26 00:00:00 Completed [facility] SARS-COV-2 COVID-19 PFIZER SARAH-SUCROSE VACCINE (PADILLA TOP) 2021-06-26 00:00:00 Completed [facility] SARS-COV-2 COVID-19 PFIZER SARAH-SUCROSE VACCINE (PADILLA TOP) 2021-06-26 00:00:00 Completed [facility] SARS-COV-2 COVID-19 PFIZER SAARH-SUCROSE VACCINE (PADILLA TOP) 2021-06-26 00:00:00 Completed [facility] SARS-COV-2 COVID-19 PFIZER SARAH-SUCROSE VACCINE (PADILLA TOP) 2021-06-26 00:00:00 Completed [facility] SARS-COV-2 COVID-19 PFIZER SARAH-SUCROSE VACCINE (PADILLA TOP) 2021-06-26 00:00:00 Completed [facility] SARS-COV-2 COVID-19 PFIZER SARAH-SUCROSE VACCINE (PADILLA TOP) 2021-06-26 00:00:00 Completed [facility] SARS-COV-2 COVID-19 PFIZER SARAH-SUCROSE VACCINE (PADILLA TOP) 2021-06-26 00:00:00 Completed [facility] SARS-COV-2 COVID-19 PFIZER SARAH-SUCROSE VACCINE (PADILLA TOP) 2021-06-26 00:00:00 Completed [facility] SARS-COV-2 COVID-19 PFIZER SARAH-SUCROSE VACCINE (PADILLA TOP) 2021-06-26 00:00:00 Completed [facility] SARS-COV-2 COVID-19 PFIZER SARAH-SUCROSE VACCINE (PADILLA TOP) 2021-06-26 00:00:00 Completed [facility] SARS-COV-2 COVID-19 PFIZER SARAH-SUCROSE VACCINE (PADILLA TOP) 2021-06-26 00:00:00 Completed [facility] SARS-COV-2 COVID-19 PFIZER SARAH-SUCROSE VACCINE (PADILLA TOP) 2021-06-26 00:00:00 Completed [facility] Influenza Virus Vaccine 2021-06-08 00:00:00 Completed [facility] Influenza Virus Vaccine (3+ yrs) 2021-06-08 00:00:00 Completed [facility] Influenza High Dose 2021-06-08 00:00:00 Completed [facility] Pneumococcal 13 Conjugate, PCV13 (Prevnar 13) 2021-06-08 00:00:00 Completed [facility] SARS-COV-2 COVID-19 PFIZER VACCINE 2021-06-08 00:00:00 Completed [facility] Influenza Virus Vaccine 2021-02-23 00:00:00 Completed [facility] Influenza Virus Vaccine (3+ yrs) 2021-02-23 00:00:00 Completed [facility] Influenza High Dose 2021-02-23 00:00:00 Completed [facility] Pneumococcal 13 Conjugate, PCV13 (Prevnar 13) 2021-02-23 00:00:00 Completed [facility] SARS-COV-2 COVID-19 PFIZER VACCINE 2021-02-23 00:00:00 Completed [facility] Influenza Virus Vaccine 2020-09-18 00:00:00 Completed [facility] Influenza Virus Vaccine (3+ yrs) 2020-09-18 00:00:00 Completed [facility] Influenza High Dose 2020-09-18 00:00:00 Completed [facility] Pneumococcal 13 Conjugate, PCV13 (Prevnar 13) 2020-09-18 00:00:00 Completed [facility] SARS-COV-2 COVID-19 PFIZER VACCINE 2020-09-18 00:00:00 Completed [facility] SARS-COV-2 COVID-19 PFIZER VACCINE 2020-08-17 00:00:00 Completed [facility] SARS-COV-2 COVID-19 PFIZER VACCINE 2020-08-17 00:00:00 Completed [facility] SARS-COV-2 COVID-19 PFIZER VACCINE 2020-08-17 00:00:00 Completed [facility] SARS-COV-2 COVID-19 PFIZER VACCINE 2020-08-17 00:00:00 Completed [facility] SARS-COV-2 COVID-19 PFIZER VACCINE 2020-08-17 00:00:00 Completed [facility] SARS-COV-2 COVID-19 PFIZER VACCINE 2020-08-17 00:00:00 Completed [facility] SARS-COV-2 COVID-19 PFIZER VACCINE 2020-08-17 00:00:00 Completed [facility] SARS-COV-2 COVID-19 PFIZER VACCINE 2020-08-17 00:00:00 Completed [facility] SARS-COV-2 COVID-19 PFIZER VACCINE 2020-08-17 00:00:00 Completed [facility] SARS-COV-2 COVID-19 PFIZER VACCINE 2020-08-17 00:00:00 Completed [facility] SARS-COV-2 COVID-19 PFIZER VACCINE 2020-08-17 00:00:00 Completed [facility] SARS-COV-2 COVID-19 PFIZER VACCINE 2020-08-17 00:00:00 Completed [facility] SARS-COV-2 COVID-19 PFIZER VACCINE 2020-08-17 00:00:00 Completed [facility] SARS-COV-2 COVID-19 PFIZER VACCINE 2020-08-17 00:00:00 Completed [facility] SARS-COV-2 COVID-19 PFIZER VACCINE 2020-07-27 00:00:00 Completed [facility] SARS-COV-2 COVID-19 PFIZER VACCINE 2020-07-27 00:00:00 Completed [facility] SARS-COV-2 COVID-19 PFIZER VACCINE 2020-07-27 00:00:00 Completed [facility] SARS-COV-2 COVID-19 PFIZER VACCINE 2020-07-27 00:00:00 Completed [facility] SARS-COV-2 COVID-19 PFIZER VACCINE 2020-07-27 00:00:00 Completed [facility] SARS-COV-2 COVID-19 PFIZER VACCINE 2020-07-27 00:00:00 Completed [facility] SARS-COV-2 COVID-19 PFIZER VACCINE 2020-07-27 00:00:00 Completed [facility] SARS-COV-2 COVID-19 PFIZER VACCINE 2020-07-27 00:00:00 Completed [facility] SARS-COV-2 COVID-19 PFIZER VACCINE 2020-07-27 00:00:00 Completed [facility] SARS-COV-2 COVID-19 PFIZER VACCINE 2020-07-27 00:00:00 Completed [facility] SARS-COV-2 COVID-19 PFIZER VACCINE 2020-07-27 00:00:00 Completed [facility] SARS-COV-2 COVID-19 PFIZER VACCINE 2020-07-27 00:00:00 Completed [facility] SARS-COV-2 COVID-19 PFIZER VACCINE 2020-07-27 00:00:00 Completed [facility] Influenza Virus Vaccine 2019-02-12 00:00:00 Completed [facility] Influenza Virus Vaccine (3+ yrs) 2019-02-12 00:00:00 Completed [facility] Pneumococcal 13 Conjugate, PCV13 (Prevnar 13) 2019-02-12 00:00:00 Completed [facility] Influenza Virus Vaccine 2019-02-12 00:00:00 Completed [facility] Influenza Virus Vaccine (3+ yrs) 2019-02-12 00:00:00 Completed [facility] Pneumococcal 13 Conjugate, PCV13 (Prevnar 13) 2019-02-12 00:00:00 Completed [facility] Influenza Virus Vaccine 2019-02-12 00:00:00 Completed [facility] Influenza Virus Vaccine (3+ yrs) 2019-02-12 00:00:00 Completed [facility] Pneumococcal 13 Conjugate, PCV13 (Prevnar 13) 2019-02-12 00:00:00 Completed [facility] Influenza Virus Vaccine 2019-02-12 00:00:00 Completed [facility] Influenza Virus Vaccine (3+ yrs) 2019-02-12 00:00:00 Completed [facility] Pneumococcal 13 Conjugate, PCV13 (Prevnar 13) 2019-02-12 00:00:00 Completed [facility] Influenza Virus Vaccine 2019-02-12 00:00:00 Completed [facility] Influenza Virus Vaccine (3+ yrs) 2019-02-12 00:00:00 Completed [facility] Pneumococcal 13 Conjugate, PCV13 (Prevnar 13) 2019-02-12 00:00:00 Completed [facility] Influenza Virus Vaccine 2019-02-12 00:00:00 Completed [facility] Influenza Virus Vaccine (3+ yrs) 2019-02-12 00:00:00 Completed [facility] Pneumococcal 13 Conjugate, PCV13 (Prevnar 13) 2019-02-12 00:00:00 Completed [facility] Influenza Virus Vaccine 2019-02-12 00:00:00 Completed [facility] Influenza Virus Vaccine (3+ yrs) 2019-02-12 00:00:00 Completed [facility] Pneumococcal 13 Conjugate, PCV13 (Prevnar 13) 2019-02-12 00:00:00 Completed [facility] Influenza Virus Vaccine 2019-02-12 00:00:00 Completed [facility] Influenza Virus Vaccine (3+ yrs) 2019-02-12 00:00:00 Completed [facility] Pneumococcal 13 Conjugate, PCV13 (Prevnar 13) 2019-02-12 00:00:00 Completed [facility] Influenza Virus Vaccine 2019-02-12 00:00:00 Completed [facility] Influenza Virus Vaccine (3+ yrs) 2019-02-12 00:00:00 Completed [facility] Pneumococcal 13 Conjugate, PCV13 (Prevnar 13) 2019-02-12 00:00:00 Completed [facility] Influenza Virus Vaccine 2019-02-12 00:00:00 Completed [facility] Influenza Virus Vaccine (3+ yrs) 2019-02-12 00:00:00 Completed [facility] Pneumococcal 13 Conjugate, PCV13 (Prevnar 13) 2019-02-12 00:00:00 Completed [facility] Influenza Virus Vaccine 2019-02-12 00:00:00 Completed [facility] Influenza Virus Vaccine (3+ yrs) 2019-02-12 00:00:00 Completed [facility] Pneumococcal 13 Conjugate, PCV13 (Prevnar 13) 2019-02-12 00:00:00 Completed [facility] Influenza Virus Vaccine 2019-02-12 00:00:00 Completed [facility] Influenza Virus Vaccine (3+ yrs) 2019-02-12 00:00:00 Completed [facility] Pneumococcal 13 Conjugate, PCV13 (Prevnar 13) 2019-02-12 00:00:00 Completed [facility] Influenza Virus Vaccine 2019-02-12 00:00:00 Completed [facility] Influenza Virus Vaccine (3+ yrs) 2019-02-12 00:00:00 Completed [facility] Pneumococcal 13 Conjugate, PCV13 (Prevnar 13) 2019-02-12 00:00:00 Completed [facility] Influenza Virus Vaccine 2019-02-12 00:00:00 Completed Influenza Virus Vaccine 2018-01-03 00:00:00 Completed [facility] Influenza Virus Vaccine 2018-01-03 00:00:00 Completed [facility] Influenza Virus Vaccine 2018-01-03 00:00:00 Completed [facility] Influenza Virus Vaccine 2018-01-03 00:00:00 Completed [facility] Influenza Virus Vaccine 2018-01-03 00:00:00 Completed [facility] Influenza Virus Vaccine 2018-01-03 00:00:00 Completed [facility] Influenza Virus Vaccine 2018-01-03 00:00:00 Completed [facility] Influenza Virus Vaccine 2018-01-03 00:00:00 Completed [facility] Influenza Virus Vaccine 2018-01-03 00:00:00 Completed [facility] Influenza Virus Vaccine 2018-01-03 00:00:00 Completed [facility] Influenza Virus Vaccine 2018-01-03 00:00:00 Completed [facility] Influenza Virus Vaccine 2018-01-03 00:00:00 Completed [facility] Influenza Virus Vaccine 2018-01-03 00:00:00 Completed [facility] Influenza High Dose 2014-04-05 00:00:00 Completed [facility] Influenza High Dose 2014-04-05 00:00:00 Completed [facility] Influenza High Dose 2014-04-05 00:00:00 Completed [facility] Influenza High Dose 2014-04-05 00:00:00 Completed [facility] Influenza High Dose 2014-04-05 00:00:00 Completed [facility] Influenza High Dose 2014-04-05 00:00:00 Completed [facility] Influenza High Dose 2014-04-05 00:00:00 Completed [facility] Influenza High Dose 2014-04-05 00:00:00 Completed [facility] Influenza High Dose 2014-04-05 00:00:00 Completed [facility] Influenza High Dose 2014-04-05 00:00:00 Completed [facility] Influenza High Dose 2014-04-05 00:00:00 Completed [facility] Influenza High Dose 2014-04-05 00:00:00 Completed [facility] Influenza High Dose 2014-04-05 00:00:00 Completed [facility] Vital Signs Vital Name Observation Time Observation Value Comments S ource Systolic blood pressure 2024-04-18 17:37:00 106 mm[Hg] [facility] Diastolic blood pressure 2024-04-18 17:37:00 74 mm[Hg] [facility] Heart rate 2024-04-18 17:37:00 112 /min [facility] Body temperature 2024-04-18 17:37:00 36.33 Shital [facility] Respiratory rate 2024-04-18 17:37:00 18 /min [facility] Oxygen saturation in Arterial blood by Pulse oximetry 2024-04-18 17:37:00 96 /min [facility] Body height 2024-04-16 21:47:00 170.2 cm [facility] Body weight 2024-04-16 21:47:00 88.451 kg [facility] BMI 2024-04-16 21:47:00 30.54 kg/m2 [facility] Heart rate 2023-12-20 15:28:00 75 /min [facility] Respiratory rate 2023-12-20 15:28:00 18 /min [facility] Oxygen saturation in Arterial blood by Pulse oximetry 2023-12-20 15:28:00 93 /min [facility] Systolic blood pressure 2023-12-20 12:22:00 116 mm[Hg] [facility] Diastolic blood pressure 2023-12-20 12:22:00 70 mm[Hg] [facility] Body temperature 2023-12-20 12:22:00 36.17 Shital [facility] Body weight 2023-12-20 09:05:00 90.992 kg [facility] BMI 2023-12-20 09:05:00 33.38 kg/m2 [facility] Body height 2023-12-19 00:52:00 165.1 cm [facility] Systolic blood pressure 2023-09-24 17:32:00 137 mm[Hg] [facility] Diastolic blood pressure 2023-09-24 17:32:00 104 mm[Hg] [facility] Heart rate 2023-09-24 17:32:00 73 /min [facility] Respiratory rate 2023-09-24 17:32:00 16 /min [facility] Oxygen saturation in Arterial blood by Pulse oximetry 2023-09-24 17:32:00 99 /min [facility] Body temperature 2023-09-24 13:43:00 36.72 Shital [facility] Body height 2023-09-24 13:43:00 170.2 cm [facility] Systolic blood pressure 2022-03-27 20:24:00 123 mm[Hg] [facility] Diastolic blood pressure 2022-03-27 20:24:00 77 mm[Hg] [facility] Heart rate 2022-03-27 20:24:00 86 /min [facility] Body temperature 2022-03-27 20:24:00 35.28 Shital [facility] Respiratory rate 2022-03-27 20:24:00 16 /min [facility] Body height 2022-03-27 20:24:00 170.2 cm [facility] Body weight 2022-03-27 20:24:00 78.109 kg [facility] BMI 2022-03-27 20:24:00 26.97 kg/m2 [facility] Oxygen saturation in Arterial blood by Pulse oximetry 2022-03-27 20:24:00 91 /min [facility] Systolic blood pressure 2021-06-26 19:20:00 157 mm[Hg] [facility] Diastolic blood pressure 2021-06-26 19:20:00 98 mm[Hg] [facility] Heart rate 2021-06-26 19:20:00 80 [facility] 2021-06-26 19:19:00 36.83 Shital [facility] Respiratory rate 2021-06-26 19:19:00 20 /min [facility] Body height 2021-06-26 19:19:00 172.7 cm [facility] Body weight 2021-06-26 19:19:00 80.196 kg [facility] BMI 2021-06-26 19:19:00 26.88 kg/m2 [facility] Oxygen saturation in Arterial blood by Pulse oximetry 2021-06-26 19:19:00 98 /min [facility] BP Systolic 2024-11-23 13:15:00 144 mm[Hg] Step hen [facility] BP Diastolic 2024-11-23 13:15:00 89 mm[Hg] Ross phen F [facility] Weight Measured 2024-11-23 13:15:00 208.00 pounds David Crystal Height Measured 2024-11-23 13:15:00 65.00 inches [facility] Body Temperature 2024-11-23 13:15:00 97.90 degrees David F Bon[facility] Heart Rate 2024-11-23 13:15:00 123.00 /min Step [facility] Respiratory Rate 2024-11-23 13:15:00 17.00 /min David F Bonilla Respiratory Rate 2024-08-24 14:28:00 David F Bonilla BP Systolic 2024-08-24 14:28:00 109 mm[Hg] Step hen F Bonilla BP Diastolic 2024-08-24 14:28:00 57 mm[Hg] Ross phen F Bonilla Weight Measured 2024-08-24 14:28:00 208.20 pounds Davidnanci Crystal Height Measured 2024-08-24 14:28:00 65.00 inches David Gurjit Crystal Body Temperature 2024-08-24 14:28:00 97.90 degrees David Crystal Heart Rate 2024-08-24 14:28:00 109.00 /min Hang Crystal Procedures Procedure Date / Time Performed Performing Clinician Source DME/SUPPLY JUSTIFICATION 2024-09-17 20:52:34 Doc tor [place]ass[place], [place] [facility] DME/SUPPLY JUSTIFICATION 2024-07-23 19:12:49 Doc tj Unassigned, [place] [facility] POCT GLUCOSE (AUTOMATED) 2024-04-18 17:36:00 Manolo Hernandez [facility] POCT GLUCOSE (AUTOMATED) 2024-04-18 14:23:00 Manolo Hernandez [facility] MAGNESIUM 2024-04-18 11:30:00 Robert Barbour [facility] BASIC METABOLIC PANEL (NA, K, CL, CO2, GLUCOSE, BUN, CREATININE, CA) 2024-04-18 11:30:00 Robert Barbour [facility] CBC WITH DIFF 2024-04-18 11:30:00 Robert Barbour [facility] POCT GLUCOSE (AUTOMATED) 2024-04-18 01:35:00 Manolo Hernandez [facility] POCT GLUCOSE (AUTOMATED) 2024-04-17 22:37:00 Manolo Hernandez [facility] POCT GLUCOSE (AUTOMATED) 2024-04-17 18:22:00 Manolo Hernandez [facility] POCT GLUCOSE (AUTOMATED) 2024-04-17 14:44:00 Manolo Hernandez [facility] PHOSPHORUS 2024-04-17 11:18:00 JaunAshley [facility] MAGNESIUM 2024-04-17 11:18:00 Ashley Zamorano [facility] BASIC METABOLIC PANEL (NA, K, CL, CO2, GLUCOSE, BUN, CREATININE, CA) 2024-04-17 11:18:00 Samina Zamorano [facility] CBC WITH DIFF 2024-04-17 11:18:00 Ashley Zamorano [facility] POCT GLUCOSE (AUTOMATED) 2024-04-17 05:41:00 Manolo Hernandez [facility] POCT GLUCOSE (AUTOMATED) 2024-04-17 02:21:00 Manolo Hernandez [facility] MAGNESIUM 2024-04-16 23:37:00 Robert Barbour [facility] COMP. METABOLIC PANEL (91625) 2024-04-16 23:37:00 Robert Barbour [facility] CBC WITH DIFF 2024-04-16 23:37:00 [facility] 2024-04-16 15:48:00 Alexandria Hendrix [facility] MAGNESIUM 2024-04-16 15:12:00 Alexandria Hendrix [facility] TROPONIN I 2024-04-16 15:12:00 Alexandria Hendrix [facility] COMP. METABOLIC PANEL (82330) 2024-04-16 15:12:00 Alexandria Hendrix [facility] CBC WITH DIFF 2024-04-16 15:12:00 Alexandria Hendrix [facility] GLYCOSYLATED HEMOGLOBIN (A1C) 2024-04-16 15:12[facility]-BNP 2024-04-16 15:12:00 Fab Hendrix [facility] HB ECG ROUTINE & RHYTHM STRIP 2024-04-16 15:04:51 Alexandria Hendrix [facility] XR CHEST 1 VW 2024-04-16 14:49:31 Alexandria Hendrix U [facility] CT THORAX WO CONTRAST 2024-01-29 17:21:24 Alex Seals [facility] POCT GLUCOSE (AUTOMATED) 2023-12-20 12:49:00 Heidy Galindo [facility] PHOSPHORUS 2023-12-20 09:45:00 Eddie Galindo [facility] MAGNESIUM 2023-12-20 09:45:00 Eddie Galindo [facility] BASIC METABOLIC PANEL (NA, K, CL, CO2, GLUCOSE, BUN, CREATININE, CA) 2023-12-20 09:45:00 Eddie Galindo [facility] CBC WITH DIFF 2023-12-20 09:45:00 Eddie Galindo [facility] LACTIC ACID WHOLE BLOOD 2023-12-20 09:45:00 Lucina Posey mmad [facility] POCT GLUCOSE (AUTOMATED) 2023-12-20 02:14:00 Heidy Galindo [facility] POCT GLUCOSE (AUTOMATED) 2023-12-19 22:00:00 Heidy Galindo [facility] POCT GLUCOSE (AUTOMATED) 2023-12-19 16:35:00 Heidy Galindo [facility] ABORH CONFIRMATION (LAB ONLY) 2023-12-19 16:26:00 Eddie Galindo [facility] CBC WITHOUT DIFF 2023-12-19 14:14:00 [facility] ABO GROUPING 2023-12-19 14:14:00 Eddie Galindo [facility] LACTIC ACID WHOLE BLOOD 2023-12-19 14:14:00 Bk Galindo [facility] TRANSTHORACIC ECHO (TTE) COMPLETE 2023-12-19 13:21:00 Marzena Posey [facility] POCT GLUCOSE (AUTOMATED) 2023-12-19 12:51:00 Heidy Galindo [facility] MAGNESIUM 2023-12-19 08:59:00 [facility]IC [facility]EL (NA, K, CL, CO2, GLUCOSE, BUN, CREATININE, CA) 2023-12-19 08:59:00 Eddie Galindo [facility] CBC WITH DIFF 2023-12-19 08:59:00 Eddie Galindo [facility] PHOSPHORUS 2023-12-19 02:54:00 Eddie Galindo [facility] POCT GLUCOSE (AUTOMATED) 2023-12-19 01:45:00 Heidy Galindo [facility] BLOOD CULTURE SCREEN 2023-12-19 00:07:00 Talia Greene [facility] LACTIC ACID WHOLE BLOOD 2023-12-18 23:19:00 Caro Greene [facility] CT THORAX WO CONTRAST 2023-12-18 20:54:56 Vicenta Greene [facility] XR CHEST 1 VW 2023-12-18 20:16:00 Paz Greene [facility] LACTIC ACID WHOLE BLOOD 2023-12-18 19:32:00 Caro Greene [facility] MAGNESIUM 2023-12-18 19:31:00 Eddie Galindo [facility] TROPONIN I 2023-12-18 19:31:[address] [facility] COMP. METABOLIC PANEL (15809) 2023-12-18 19:31:00 Paz Greene [facility] CBC WITH DIFF 2023-12-18 19:31:00 Paz Greene [facility] GLYCOSYLATED HEMOGLOBIN (A1C) 2023-12-18 19:31:00 Eddie Galindo [facility] D-DIMER 2023-12-18 19:31:[address] [facility] URINALYSIS 2023-12-18 19:31:[address] [facility] INFLUENZA A/B RSV COVID NAAT 2023-12-18 19:31:00 Paz Greene [facility] N-TERMINAL PRO-BNP 2023-12-18 19:31:00 Paz Greene [facility] LAB ONLY COVID INTERPRETATION 2023-12-18 19:31:00 Paz Greene [facility] HB ECG ROUTINE & RHYTHM STRIP 2023-12-18 19:30:09 Jc Paz [facility] CRITICAL CARE 2023-12-18 18:38:00 Paz Greene [facility] URINALYSIS 2023-09-24 15:26:00 Marcelle Felipe [facility] XR CHEST 1 VW 2023-09-24 14:22:[address] [facility] TROPONIN I 2023-09-24 14:05:00 Marcelle Felipe [facility] BASIC METABOLIC PANEL (NA, K, CL, CO2, GLUCOSE, BUN, CREATININE, CA) 2023-09-24 14:05:00 Marcelle Felipe [facility] CBC WITH DIFF 2023-09-24 14:05:00 Marcelle Felipe [facility] RAPID INFLUENZA A/B 2023-09-24 14:05:00 Marcelle Felipe [facility] N-TERMINAL PRO-BNP 2023-09-24 14:05:00 Marcelle Felipe [facility] COVID-19 (ID NOW RAPID TESTING) 2023-09-24 14:05:00 Marcelle Felipe [facility] BI DIAGNOSTIC TOMOSYNTHESIS BILATERAL 2023-03-19 19:23:44 Brock Harper [facility] ASSIGNMENT OF BENEFITS 2023-03-19 18:46:27 Docto r [place]ass[place], [place] [facility] AUTHORIZATION FOR RELEASE OF PHI 2022-09-20 05:01:00 Doctor [place]assigned, [place] [facility] AUTHORIZATION FOR RELEASE OF PHI 2022-09-09 05:01:00 Doctor [place]assigned, [place] [facility] HB ECG ROUTINE & RHYTHM STRIP 2022-03-27 20:29:26 Radha Casey [facility] BI DIAGNOSTIC TOMOSYNTHESIS BILATERAL 2022-01-29 14:45:00 Grace Webb [facility] DAY SURGERY - ADC 2017-09-22 05:01:00 Doctor Aiyana ssigned, [place] [facility] Encounters Start Date/Time End Date/Time Encounter Type Admission Type Attending Clinicians Care Facility Care Department Encounter ID Source 2025-01-18 09:30:00 2025-01-18 09:30:00 Outpatient PRITI HOLDEN [facility] [id number] [facility] 2024-11-15 00:00:00 2024-12-18 18:29:22 Patient Secure Msg Doctor Unassigned, [place] Doctor [place]assigned, [place] [facility] 1.2.840.114 350.1.13.10 4.2.7.2.686 [id number] [facility] 2024-11-23 00:00:00 2024-11-23 00:00:[address] [facility] [id number] David Cagle [place] 2024-10-28 16:12:26 2024-10-28 16:12:[address] [facility] [id number] David Cagle [place] 2024-10-28 00:00:00 2024-10-28 00:00:[address] [facility] [id number] David Cagle [place] 2024-10-22 10:00:00 2024-10-22 10:00:00 Outpatient R ARNLE GILL SHIWAN [facility] [id number] [facility] 2024-10-12 00:00:00 2024-10-13 16:18:12 Telephone Arnel Gill [facility] 1.2840.114 350.1.13.10 4.2.7.2.686 [id number] [facility] 2024-09-17 00:00:00 2024-09-18 02:04:16 Orders Only Doctor Unassigned, [place] Doctor [place]assigned, [place] [facility] ([facility]) 1.2840.114 350.1.13.10 4.2.7.2.686 [id number] [facility] 2024-09-14 00:00:00 2024-09-14 16:56:05 Telephone Arnel Gill [facility] 1.2840.114 350.1.13.10 4.2.7.2.686 [id number] [facility] 2024-07-23 00:00:00 2024-07-24 02:04:08 Orders Only Doctor Unassigned, [place] Doctor [place]assigned, [place] [facility] 1..840.114 350.1.13.10 4.2.7.2.686 [id number] [facility] 2024-07-20 09:00:00 2024-07-20 09:41:54 Outpatient R PRIIT BARBOUR [facility] [id number] [facility] 2024-07-20 09:00:00 2024-07-20 09:41:54 [facility] [id number] [facility] 2017-09-22 00:00:00 2024-06-19 03:18:13 Orders Only Doctor Unassigned, [place] Doctor Unassigned, [place] [facility] ([facility]) 1.840.114 350.1.13.10 4.2.7.2.686 [id number] [facility] 2024-04-20 00:00:00 2024-04-21 07:00:22 Transition of Care Geovanny Fontanez Michele A [facility] [address] 1..840.114 350.1.13.10 4.2.7.2.686 [id number] [facility] 2024-04-16 08:23:00 2024-04-18 15:24:00 Outpatient X MANOLO HERNANDEZ [facility] [id number] [facility] 2024-04-16 08:23:00 2024-04-18 15:24:00 Emergency Alexandria Hendrix, Manolo Ferreira [facility] ([facility] 1..840.114 350.1.13.10 4.2.7.2.686 [id number] [facility] 2024-02-11 14:00:00 2024-02-11 15:33:11 Outpatient R BROCK HARPER [facility] [id number] [facility] 2024-02-11 14:00:00 2024-02-11 15:33:11 [employer] Supervisor Visit Chelsey BROCK HARPER [facility] 1..114 350.1.13.10 4.2.7.2.686 [id number] [facility] 2023-12-25 00:00:00 2024-01-31 18:27:45 Patient Secure Msg Doctor Unassigned, [place] Doctor [place]assigned, [place] [facility] 1..114 350.1.13.10 4.2.7.2.686 [id number] [facility] 2024-01-29 11:52:28 2024-01-29 23:59:00 Outpatient R RADIOLOGY [facility] [id number] [facility] 2024-01-29 11:52:28 2024-01-29 23:59:00 Hospital Encounter Radiology Radiology [facility] 1..114 350.1.13.10 4.2.7.2.686 [id number] [facility] 2024-01-22 00:00:00 2024-01-22 00:00:00 Outpatient R RADIOLOGY [facility] [id number] [facility] 2023-12-18 13:40:00 2023-12-20 11:36:00 Inpatient X EDDIE GALINDO [facility] [id number] [facility] 2023-12-18 13:40:00 2023-12-20 11:36:00 Hospital Encounter Paz Greene Jelani [facility] 1..114 350.1.13.10 4.2.7.2.686 [id number] [facility] 2023-09-24 08:45:00 2023-09-24 12:53:00 Emergency X MARCELLE FELIPE [facility] ERT [id number] [facility] 2023-09-24 08:45:00 2023-09-24 12:53:00 Emergency Marcelle Felipe [facility] 1.2.840.114 350.1.13.10 4.2.7.2.686 [id number] [facility] 2023-07-08 00:00:00 2023-07-08 00:00:00 Refill Radha Casey [facility]ESS[facility] 1.2.840.114 350.1.13.10 4.2.7.2.686 [id number] [facility] 2023-06-13 00:00:00 2023-06-13 00:00:00 Refill Arnel Gill [facility] 1.2.840.114 350.1.13.10 4.2.7.2.686 [id number] [facility] 2023-05-15 00:00:00 2023-05-15 00:00:00 [facility] 1.2.840.114 350.1.13.10 4.2.7.2.686 [id number] [facility] 2023-04-16 00:00:00 2023-04-16 00:00:00 Refill Radha CaseyHJose Roberto [facility] 1.2.840.114 350.1.13.10 4.2.7.2.686 [id number] [facility] 2023-04-16 00:00:00 2023-04-16 00:00:00 Refill Radha Casey [facility] 1.2840.114 350.1.13.10 4.2.7.2.686 [id number] [facility] 2023-04-16 00:00:00 2023-04-16 00:00:00 Patient Secure Msg Doctor Unassigned, [place] [facility] 1.2.840.114 350.1.13.10 4.2.7.2.686 [id number] [facility] 2023-03-19 12:48:18 2023-03-19 23:59:00 Outpatient R BROCK HARPER [facility] [id number] [facility] 2023-03-19 12:48:18 2023-03-19 23:59:00 Hospital Encounter Brock Harper [facility] 1.2840.114 350.1.13.10 4.2.7.2.686 [id number] [facility] 2023-03-19 00:00:00 2023-03-19 00:00:00 Orders Only Doctor Unassigned, [place] [facility] 1.2840.114 350.1.13.10 4.2.7.2.686 [id number] [facility] 2023-03-11 00:00:00 2023-03-11 00:00:00 Refill Radha CaseyHJose Roberto [facility] 1.2840.114 350.1.13.10 4.2.7.2.686 [id number] [facility] 2023-03-11 00:00:00 2023-03-11 00:00:00 Refill Radha CaseyHJose Roberto [facility] 1.2840.114 350.1.13.10 4.2.7.2.686 [id number] [facility] 2022-10-19 05:58:00 2022-10-19 05:58:00 Outpatient Matt Montemayor [facility] [id number] 78 [facility] 2022-09-20 00:00:00 2022-09-20 00:00:00 Orders Only Doctor Unassigned, [place] [facility] 1.2.840.114 350.1.13.10 4.2.7.2.686 [id number] [facility] 2022-09-09 00:00:00 2022-09-09 00:00:00 Orders Only Doctor Unassigned, [place] [facility] 1.2.840.114 350.1.13.10 4.2.7.2.686 [id number] [facility] 2022-07-26 00:00:00 2022-07-26 00:00:00 Refill Arnel Gill [facility] 1.2.840.114 350.1.13.10 4.2.7.2.686 [id number] [facility] 2022-04-15 11:00:00 2022-04-15 11:00:00 Outpatient ARNEL GOMEZ SHIWAN [facility] [id number] [facility] 2022-04-09 00:00:00 2022-04-09 00:00:00 Refill Radha Casey [facility] 1.2.840.114 350.1.13.10 4.2.7.2.686 [id number] [facility] 2022-04-09 00:00:00 2022-04-09 00:00:00 Refill Arnel Gill [facility] 1.2.840.114 350.1.13.10 4.2.7.2.686 [id number] [facility] 2022-03-27 14:00:00 2022-03-27 14:51:10 Outpatient R RADHA CASEY [facility] [id number] [facility] 2022-03-27 14:00:00 2022-03-27 14:51:10 Office Visit Radha Casey [facility] 1.2.840.114 350.1.13.10 4.2.7.2.686 [id number] [facility] 2022-03-10 00:00:00 2022-03-10 00:00:00 Refill Radha Casey [facility] 1.2.840.114 350.1.13.10 4.2.7.2.686 [id number] [facility] 2022-03-08 00:00:00 2022-03-08 00:00:00 Telephone Arnel Gill [facility] 1.2.840.114 350.1.13.10 4.2.7.2.686 [id number] [facility] 2022-02-24 00:00:00 2022-02-24 00:00:00 Refill Radha Casey [facility] 1.2.840.114 350.1.13.10 4.2.7.2.686 [id number] [facility] 2022-02-13 00:00:00 2022-02-13 00:00:00 Refill Radha Casey [facility] 1.2.840.114 350.1.13.10 4.2.7.2.686 [id number] [facility] 2022-02-11 00:00:00 2022-02-11 00:00:00 Radha Peacock [facility] 1.2.840.114 350.1.13.10 4.2.7.2.686 [id number] [facility] 2022-01-29 08:29:10 2022-01-29 23:59:00 Outpatient R GRACE WEBB [facility] [id number] [facility] 2022-01-29 08:29:10 2022-01-29 23:59:00 Hospital Encounter Grace Webb [facility] 1.2.840.114 350.1.13.10 4.2.7.2.686 [id number] [facility] 2021-12-25 12:52:16 2021-12-25 23:59:00 Hospital Encounter Grace Webb [facility] 1.2.840.114 350.1.13.10 4.2.7.2.686 [id number] [facility] 2021-12-25 00:00:00 2021-12-25 23:59:00 [id number] 2021-12-25 13:15:00 2021-12-25 13:15:00 [facility] [id number] [facility] 2021-11-28 00:00:00 2021-11-28 00:00:00 RefArnel Soriano [facility] 1.2.840.114 350.1.13.10 4.2.7.2.686 [id number] [facility] 2021-10-04 12:00:00 2021-10-04 12:30:00 Telemedici ne Visit Arnel Gill [facility] 1.2.840.114 350.1.13.10 4.2.7.2.686 [id number] [facility] 2021-10-04 12:00:00 2021-10-04 12:00:00 Outpatient R ARNEL GILL SHINDTigist [facility] [id number] [facility] 2021-08-18 00:00:00 2021-08-18 00:00:00 Refill Radha CaseyHJose Roberto [facility] 1.2.840.114 350.1.13.10 4.2.7.2.686 [id number] [facility] 2021-07-20 00:00:00 2021-07-20 00:00:00 Telephone Radha CaseyHJose Roberto [facility] 1.2.840.114 350.1.13.10 4.2.7.2.686 [id number] [facility] 2021-07-16 00:00:00 2021-07-16 00:00:00 Refill Radha CaseyHJose Roberto [facility] 1.2.840.114 350.1.13.10 4.2.7.2.686 [id number] [facility] 2021-06-26 14:00:00 2021-06-26 14:00:00 Outpatient HERBERT REES [facility] [id number] [facility] 2021-06-26 14:00:00 2021-06-26 13:48:18 Outpatient HERBERT REES [facility] [id number] [facility] 2021-06-26 13:00:00 2021-06-26 13:27:44 Office Visit Grace Webb [facility] 1.2.840.114 350.1.13.10 4.2.7.2.686 [id number] [facility] 2021-06-26 13:00:00 2021-06-26 13:27:44 Outpatient R GRACE WEBB [facility] [id number] [facility] 2021-06-19 10:11:38 2021-06-19 23:59:00 Outpatient R CHRISTINE MOSES [facility] [id number] [facility] 2021-06-19 10:11:38 2021-06-19 23:59:00 [facility] 1.84.114 350.1.13.10 4.2.7.2.686 [id number] [facility] 2021-06-15 16:15:00 2021-06-15 16:15:00 Outpatient CHRISTINE OCHOA [facility] [id number] [facility] 2021-06-12 00:00:00 2021-06-12 00:00:00 [facility] 1.84.114 350.1.13.10 4.2.7.2.686 [id number] [facility] 2021-06-08 00:00:00 2021-06-08 00:00:00 Patient Secure Msg Doctor Unassigned, [place] [facility] 1.114 350.1.13.10 4.2.7.2.686 [id number] [facility] 2021-06-04 00:00:00 2021-06-04 00:00:00 Orders Only Doctor Unassigned, [place] [facility] 1.284114 350.1.13.10 4.2.7.2.686 [id number] [facility] 2021-05-29 08:15:43 2021-05-29 23:59:00 Hospital Encounter [place], Brock G [facility] 1.2.840.114 350.1.13.10 4.2.7.2.686 [id number] [facility] 2021-05-29 08:12:09 2021-05-29 08:14:00 Outpatient R BROCK HARPER [facility] [id number] [facility] 2021-05-29 08:12:09 2021-05-29 08:14:00 Hospital Encounter Brock Harper [facility] 1.2.840.114 350.1.13.10 4.2.7.2.686 [id number] [facility] 2021-05-23 00:00:00 2021-05-23 00:00:00 [facility]phone [facility] 1.2.840.114 350.1.13.10 4.2.7.2.686 [id number] [facility] 2021-04-26 14:30:00 2021-04-26 14:30:00 Outpatient R ARNEL GILL SHINDTigist [facility] [id number] [facility] 2021-04-26 14:10:00 2021-04-26 14:10:00 Outpatient R ARNEL GILL SHIWAN [facility] [id number] [facility] 2021-03-26 13:19:05 2021-03-26 23:59:00 Outpatient R BROCK HARPER [facility] [id number] [facility] 2021-03-26 13:19:05 2021-03-26 23:59:00 Hospital Encounter Brock Harper [facility] 1.2.840.114 350.1.13.10 4.2.7.2.686 [id number] [facility] 2021-03-26 14:06:33 2021-03-26 14:21:33 [employer] Supervisor Visit Pob, [facility] Main VianeyManuel burnette [facility] 1.2.840.114 350.1.13.10 4.2.7.2.686 [id number] [facility] 2021-03-26 13:40:00 2021-03-26 13:40:00 Outpatient R BROCK HARPER [facility] [id number] [facility] 2021-03-20 00:00:00 2021-03-20 00:00:00 Arnel Stoddard [facility] 1.2.840.114 350.1.13.10 4.2.7.2.686 [id number] [facility] 2021-03-02 00:00:00 2021-03-02 00:00:00 Patient Secure Msg Radha Casey [facility] 1..840.114 350.1.13.10 4.2.7.2.686 [id number] [facility] 2021-03-01 00:00:00 2021-03-01 00:00:00 Patient Secure Msg Radha CaseyHJose Roberto [facility] 1.2.840.114 350.1.13.10 4.2.7.2.686 [id number] [facility] 2021-02-23 00:00:00 2021-02-23 00:00:00 Patient Secure Msg Doctor Unassigned, [place] [facility] 1.2.840.114 350.1.13.10 4.2.7.2.686 [id number] [facility] 2021-01-25 00:00:00 2021-01-25 00:00:00 Patient Secure Msg Radha Casey GloriaJose RobertoHJose Roberto [facility] 1.2.840.114 350.1.13.10 4.2.7.2.686 [id number] [facility] 2021-01-17 00:00:00 2021-01-17 00:00:00 Orders Only Doctor Unassigned, [place] [facility] 1.2.840.114 350.1.13.10 4.2.7.2.686 [id number] [id number] [facility] 2021-01-15 00:00:00 2021-01-15 00:00:00 Patient Secure Msg Ayush Radha GloriaJose RobertoHJose Roberto [facility] Medical Office Building 1.2.840.114 350.1.13.10 4.2.7.2.686 [id number] [facility] 2020-12-22 00:00:00 2020-12-22 00:00:00 Patient Secure Msg Shamika Crespo [facility] Building 1.2.840.114 350.1.13.10 4.2.7.2.686 [id number] [facility] 2020-12-22 00:00:00 2020-12-22 00:00:00 Patient Secure Msg Shamika Crespo [facility] nal Building 1.2.840.114 350.1.13.10 4.2.7.2.686 [id number] [facility] 2020-12-21 13:46:54 2020-12-21 14:30:16 Office Visit Arnel Gill [facility] Building 1.2.840.114 350.1.13.10 4.2.7.2.686 [id number] [facility] 2020-12-21 14:00:00 2020-12-21 14:00:00 Outpatient ARNEL GOMEZ SHIWAN [facility] [id number] [facility] 2020-12-21 00:00:00 2020-12-21 00:00:00 Telephone DaleyRenee wright [facility] 1.2.840.114 350.1.13.10 4.2.7.2.686 [id number] [facility] 2020-12-21 00:00:00 2020-12-21 00:00:00 Orders Only Doctor Unassigned, [place] [facility] 1.2.840.114 350.1.13.10 4.2.7.2.686 [id number] [facility] 2020-10-27 11:00:00 2020-10-27 11:00:00 Outpatient ARNEL GOMEZ SHIWAN [facility] [id number] [facility] 2020-10-26 13:56:46 2020-10-26 14:11:46 [employer] Supervisor Visit 2, Adc Lab Radha Casey [facility] 1.2.840.114 350.1.13.10 4.2.7.2.686 [id number] [facility] 2020-10-26 12:46:45 2020-10-26 13:48:54 Office Visit Radha Casey [facility] 1.2.840.114 350.1.13.10 4.2.7.2.686 [id number] [facility] 2020-10-26 13:00:00 2020-10-26 13:00:00 Outpatient RADHA DE LEÓN [facility] [id number] [facility] 2020-10-11 13:00:00 2020-10-11 13:00:00 Outpatient RADHA DE LEÓN [facility] [id number] [facility] 2020-10-05 00:00:00 2020-10-05 00:00:00 Orders Only Doctor Unassigned, [place] [facility] 1.20.114 350.1.13.10 4.2.7.2.686 [id number] [facility] 2020-09-20 00:00:00 2020-09-20 00:00:00 Outpatient R BROCK HARPER [facility] [id number] [facility] 2020-09-19 00:00:00 2020-09-19 00:00:00 Patient Secure Msg Radha Casey [facility] [place] 1.284.114 350.1.13.10 4.2.7.2.686 [id number] [facility] 2020-09-18 00:00:00 2020-09-18 00:00:00 Patient Secure Msg Doctor Unassigned, [place] [facility] 1.20.114 350.1.13.10 4.2.7.2.686 [id number] [facility] 2020-09-14 09:20:03 2020-09-14 10:42:05 Office Visit Radha Casey [facility] Building 1.2840.114 350.1.13.10 4.2.7.2.686 [id number] [facility] 2020-09-14 09:30:00 2020-09-14 09:30:00 Outpatient R RADHA CASEY [facility] [id number] [facility] 2020-09-12 00:00:00 2020-09-12 00:00:00 Telephone Arnel Gill [facility] Building 1.284.114 350.1.13.10 4.2.7.2.686 [id number] [facility] 2020-09-07 08:30:00 2020-09-07 08:30:00 Outpatient JULIANA DON [facility] [id number] [facility] 2020-09-07 00:00:00 2020-09-07 00:00:00 Orders Only Doctor Unassigned, [place] [facility] 1.840.114 350.1.13.10 4.2.7.2.686 [id number] [facility] 2020-08-17 14:00:00 2020-08-17 14:00:00 Outpatient JESUS RAUSCH [facility] [id number] [facility] 2020-07-27 14:20:00 2020-07-27 14:20:00 Outpatient JESUS RAUSCH [facility] [id number] [facility] 2020-07-27 13:07:09 2020-07-27 14:10:00 [facility] 1.840.114 350.1.13.10 4.2.7.2.686 [id number] [facility] 2020-07-27 13:30:00 2020-07-27 13:30:00 Outpatient R ARNEL GILL SHIWAN [facility] [id number] [facility] 2020-07-20 09:00:00 2020-07-20 09:00:00 Outpatient R ARNEL GILL SHIWAN [facility] [id number] [facility] 2020-07-11 00:00:00 2020-07-11 00:00:00 Patient Outreach Herbert Loomis [facility] 1..840.114 350.1.13.10 4.2.7.2.686 [id number] [facility] 2020-03-16 15:08:57 2020-03-16 15:28:57 Office Visit Arnel Gill [facility] Building 1.2840.114 350.1.13.10 4.2.7.2.686 [id number] [facility] 2020-03-16 15:20:00 2020-03-16 15:20:00 Outpatient R ASIF GILLTigist [facility] [id number] [facility] 2020-03-03 00:00:00 2020-03-03 00:00:00 Orders Only Doctor Unassigned, [place] [facility] 1.2840.114 350.1.13.10 4.2.7.2.686 [id number] [facility] 2020-03-02 14:20:00 2020-03-02 14:20:00 Outpatient R GILL ARNEL [facility] [id number] [facility] 2020-02-17 00:00:00 2020-02-17 00:00:00 Orders Only Doctor Unassigned, [place] [facility] 1.2840.114 350.1.13.10 4.2.7.2.686 [id number] [facility] 2020-02-07 00:00:00 2020-02-07 00:00:00 [facility] 1.2840.114 350.1.13.10 4.2.7.2.686 [id number] [facility] 2020-02-03 12:30:00 2020-02-03 12:30:00 Outpatient R JULIANA HOOKER [facility] [id number] [facility] 2020-01-31 12:22:33 2020-01-31 12:37:33 Laboratory Only Only, Adc Test [facility] 1.2840.114 350.1.13.10 4.2.7.2.686 [id number] [facility] 2020-01-31 12:15:00 2020-01-31 12:15:00 Outpatient R ARNEL GILL SHIWAN [facility] [id number] [facility] 2020-01-27 10:00:00 2020-01-27 10:00:00 Outpatient R ARNEL GILL SHIWAN [facility] [id number] [facility] 2020-01-27 10:00:00 2020-01-27 10:00:00 Outpatient R BRIDGET CHEKO WAYNENDTigist [facility] [id number] [facility] 2020-01-27 00:00:00 2020-01-27 00:00:00 Orders Only Doctor Unassigned, [place] [facility] 1..840.114 350.1.13.10 4.2.7.2.686 [id number] [facility] 2019-12-16 00:00:00 2019-12-16 00:00:00 Telephone Arnel Gill [facility] Building 1.2.840.114 350.1.13.10 4.2.7.2.686 [id number] [facility] 2019-11-26 00:00:00 2019-11-26 00:00:00 Telephone Bridget Arnel [facility] nal Building 1.2.840.114 350.1.13.10 4.2.7.2.686 [id number] [facility] 2019-11-25 12:29:21 2019-11-25 14:02:54 Office Visit Arnel Gill [facility] Building 1.2.840.114 350.1.13.10 4.2.7.2.686 [id number] [facility] 2019-11-25 13:20:00 2019-11-25 13:20:00 Outpatient R ARNEL GILL SHIWAN [facility] [id number] [facility] 2019-11-25 00:00:00 2019-11-25 00:00:00 Orders Only Doctor Unassigned, [place] [facility] 1.2.840.114 350.1.13.10 4.2.7.2.686 [id number] [facility] 2019-10-28 00:00:00 2019-10-28 00:00:00 Orders Only Doctor Unassigned, [place] [facility] 1.2.840.114 350.1.13.10 4.2.7.2.686 [id number] [facility] 2018-11-17 00:00:00 2018-11-17 00:00:00 Orders Only Doctor Unassigned, [place] [facility] 1.2.840.114 350.1.13.10 4.2.7.2.686 [id number] [facility] Results Test Description Test Time Test Comments Results Resul t Comments Source DME/SUPPLY JUSTIFICATION 2024-09-02 6 20:52:34 Ordered by an unspecified provider. [facility] DME/SUPPLY JUSTIFICATION 2024-07-04 1 19:12:49 Ordered by an unspecified provider. [facility] GLUCOSE (AUTOMATED)2024-04-18 14:24:03* Test Item Value Reference Range Interpretation Comme nts POCT GLU (test code = 2509833379) 147 mg/dL 70-110 H Lab Interpretation (test cod e = 94446-0) Abnormal [facility] GLUCOSE (AUTOMATED)2024-04-18 01:36:01* Test Item Value Reference Range Interpretation Comme nts POCT GLU (test code = 7651168942) 251 mg/dL 70-110 H Lab Interpretation (test cod e = 42906-9) Abnormal [facility] GLUCOSE (AUTOMATED)2024-04-17 22:39:00* Test Item Value Reference Range Interpretation Comme nts POCT GLU (test code = 8873942434) 210 mg/dL 70-110 H Lab Interpretation (test cod e = 72442-5) Abnormal [facility] GLUCOSE (AUTOMATED)2024-04-17 18:23:28* Test Item Value Reference Range Interpretation Comme nts POCT GLU (test code = 1853508673) 315 mg/dL 70-110 H Lab Interpretation (test cod e = 37417-5) Abnormal [facility] GLUCOSE (AUTOMATED)2024-04-17 14:44:59* Test Item Value Reference Range Interpretation Comme nts POCT GLU (test code = 9505887344) 164 mg/dL 70-110 H Lab Interpretation (test cod e = 48238-5) Abnormal [facility] GLUCOSE (AUTOMATED)2024-04-17 05:42:58* Test Item Value Reference Range Interpretation Comme nts POCT GLU (test code = 7568323240) 96 mg/dL 70-110 Lab Interpretation (test cod e = 21051-9) Normal [facility] GLUCOSE (AUTOMATED)2024-04-17 02:22:27* Test Item Value Reference Range Interpretation Comme nts POCT GLU (test code = 6042809755) 318 mg/dL 70-110 H Lab Interpretation (test cod e = 78387-4) Abnormal [facility] (A1C[facility]2024-04-17 00:38:36* Test Item Value Reference Range Interpretation Comme nts HGB A1C (test code = 4548-4) 7.5 % 4.0-5.7 H ABIILO (test code = ABILIO) Reference RangesNormal: <5.7%Prediabetes: 5.7 - 6.4%Diabetes: > 6.5% Lab Interpretation (test code = 18290-2) Abnormal [facility] [id number] 16:01:59EXAM: XR CHEST 1 VW HISTORY: 64 years-old Female with sob . TECHNIQUE: Single frontal view of the chest. COMPARISON: Chest radiograph from December 18, [address] fromJanuary 29, 2024 FINDINGS: Lines, tubes and devices: None. Lungs and pleura: The lungs are adequately expanded. No pleural effusion orpneumothorax is visualized. A 5 mm right upper lung zone focal opacitycorresponds to regionof scarring/nodularity on prior CT. Heart/Mediastinum: The cardiac silhouette appears normal accounting fortechnique and degree of inspiration. Bones and soft tissues: No acute fracture, aggressive osseous lesion, ordislocation. No soft tissue abnormality.[facility] [id number] 15:52:47* Test Item Value Reference Range Interpretation Comme nts TROPONIN I (test code = 0952453718) 0.019 ng/mL <=0.034 ABILIO (test code = ABILIO) Reference (Normal) Range (defined by the 99th percentile reference limit): <= 0.034 ng/mL Note: Cardiac troponin begins to rise 3-4 hours after the onset of ischemia. Repeat in 4-6 hours if the sample was drawn within 3-4 hours of the onset of the symptom and found normal. Diagnosis of myocardial injury is made with acute changes in cTn concentrations with at least one serial sample above the 99th percentile upper reference limit (URL), taken together with the patient's clinical presentation. Biotin has been reported to cause a negative bias, interpret results relative to patient's use of biotin. Lab Interpretation (test code = 85957-1) Normal [facility]. METABOLIC PANEL (03238)2024-04-16 15:52:22* Test Item Value Reference Range Interpretation Comme nts NA (test code = 7489712858) 130 mmol/L 135-145 L K (test code = 5991713208) 2.5 mmol/L 3.5-5.0 LL CL (test code = 8707972874) 77 mmol/L 98-108 L CO2 TOTAL (test code = 1068101509) 39 mmol/L 23-31 H AGAP (test code = 1255727557) 14 2-16 BUN (test code = 0035250275) 35 mg/dL 7-23 H GLUCOSE (test code = 4191563743) 216 mg/dL 70-110 H CREATININE (test code = 2160-0) 3.26 mg/dL 0.50-1.04 H TOTAL BILI (test code = 0107209984) 0.3 mg/dL 0.1-1.1 CALCIUM (test code = 4678099243) 9.4 mg/dL 8.6-10.6 T PROTEIN (test code = 7328569777) 7.3 g/dL 6.3-8.2 ALBUMIN (test code = 8533042390) 4.2 g/dL 3.5-5.0 ALK PHOS (test code = 1475917041) 75 U/L 34-122 ALTv (test code = 1742-6) 21 U/L 5-35 AST(SGOT) (test code = 5156755033) 22 U/L 13-40 eGFR (test code = 32972-6) 15.1 mL/min/1.73m2 CKD-EPI eGFR (2020). Assuming creatinine has been stable day-to-day for at least three months, the eGFR indicates Category G4 (15 - 29 mL/min/1.73 m2) Lab Interpretation (test code = 56480-8) Abnormal [facility] [id number] 15:50:26* Test Item Value Reference Range Interpretation Comme nts NT-proBNP (test code = 66355-6) 227 pg/mL <=125 ABILIO (test code = ABILIO) Result Indeterminate-Consid er causes of NT-proBNP elevation other than Heart failure such as acute coronary syndrome, pulmonary embolism, pulmonary hypertension, sepsis, stroke, and renal dysfunction. Lab Interpretation (test code = 76447-6) Abnormal [facility]2024-12-13 15:41:47* Test Item Value Reference Range Interpretation Comme nts MAGNESIUM (test code = 3800035391) 1.2 mg/dL 1.7-2.4 L Lab Interpretation (test cod e = 78661-0) Abnormal [facility] WITH [id number] 15:27:24* Test Item Value Reference Range Interpretation Comme nts WBC (test code = 6690-2) 14.47 4.30-11.10 H RBC (test code = 789-8) 4.08 3.93-5.25 HGB (test code = 718-7) 11.8 g/dL 11.6-15.0 HCT (test code = 4544-3) 37.5 % 35.7-45.2 MCV (test code = 787-2) 91.9 fL 80.6-95.5 MCH (test code = 785-6) 28.9 pg 25.9-32.8 MCHC (test code = 786-4) 31.5 g/dL 31.6-35.1 L RDW-SD (test code = 85893-9) 46.5 fL 39.0-49.9 RDW-CV (test code = 788-0) 13.7 % 12.0-15.5 PLT (test code = 777-3) 396 166-358 H MPV (test code = 92450-8) 10.4 fL 9.5-12.9 NRBC/100 WBC (test code = 8000590171) 0.0 0.0-10.0 NRBC x10^3 (test code = 4017638476) See_Comment [Automated [employer]] The system which generated this result transmitted reference range: 10*3/?L. The reference range was not used to interpret this result as normal/abnormal. GRAN MAT (NEUT) % (test code = 770-8) 69.0 % IMM GRAN % (test code = 9920736126) 0.70 % LYMPH % (test code = 736-9) 16.7 % MONO % (test code = 5905-5) 9.5 % EOS % (test code = 713-8) 3.0 % BASO % (test code = 706-2) 1.1 % GRAN MAT x10^3(ANC) (test code = 2570025184) 9.98 10*3/uL 1.88-7.09 H IMM GRAN x10^3 (test code = 9249181444) 0.10 10*3/uL 0.00-0.06 H LYMPH x10^3 (test code = 731-0) 2.42 10*3/uL 1.32-3.29 MONO x10^3 (test code = 742-7) 1.38 10*3/uL 0.33-0.92 H EOS x10^3 (test code = 711-2) 0.43 10*3/uL 0.03-0.39 H BASO x10^3 (test code = 704-7) 0.16 10*3/uL 0.01-0.07 H Lab Interpretation (test code = 09081-9) Abnormal [facility] THORAX WO [id number] 17:29:54 HISTORY: Abnormal CT chest, follow-up. TECHNIQUE: 64-Multidetector noncontrast enhanced CT of the chest isobtained. FINDINGS: Comparison made with previous CT chest dated 12/18/2023. Significant interval improvement noted with essentially complete resolutionof abnormal findings of multifocal infiltrates in both lungs. At this time,residual areas of fibrosis noted, most prominent in the anteromedial rightupper lobe, less in the anteromedial left upper lobe. 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 Cylindrical bronchiectatic changes are seen in both right and left anteriorupper lobe lobes, right middle lobe and left lingula. Minimal diffuse fibrotic changes are seen in the left lung base. No pleuraleffusion or pericardial effusion. Subcentimeter slightly prominent lymph nodes anterior to the trachea andcarina are unchanged. Coronary atherosclerosis is noted in the LAD and right coronary arteries.Air is seen in the thoracic esophagus which could be due togastroesophageal reflux. Changes of remote trauma to upper/middle thoracic vertebral bodies noted,unchanged. CONCLUSIONS: 1. Significant interval improvementin the widespread multifocalinfiltrates in both lungs seen in previous study of December 18, 2023. Atthis time, focal areas of groundglass hazy changes are seen which could beresidual infection and/or fibrosis.2. Unchanged to minimally decrease in size of irregular masslike density inthe right upper l beatrice. Additional areas of masslike changes are seen in theanteromedial right upper lung which could be developing pulmonary fibrosis.Monitoring suggested by follow-up CT chest without contrast in 3 months.[facility]2023-12-20 12:50:06* Test Item Value Reference Range Interpretation Comme nts POCT GLU (test code = 9642558861) 187 mg/dL 70-110 H Lab Interpretation (test cod e = 92627-9) Abnormal [facility]2024-08-17 10:20:46* Test Item Value Reference Range Interpretation Comme nts MAGNESIUM (test code = 0510528009) 1.5 mg/dL 1.7-2.4 L Lab Interpretation (test cod e = 04986-3) Abnormal [facility] Metabolic Panel (NA, K, CL, CO2, GLUCOSE, BUN, CREATININE, CA)2023-12-20 10:20:26* Test Item Value Reference Range Interpretation Comme nts NA (test code = 7281120338) 136 mmol/L 135-145 K (test code = 2024732604) 3.6 mmol/L 3.5-5.0 CL (test code = 1559029832) 95 mmol/L 98-108 L CO2 TOTAL (test code = 2333774108) 35 mmol/L 23-31 H AGAP (test code = 6583220805) 6 2-16 BUN (test code = 8065662690) 30 mg/dL 7-23 H GLUCOSE (test code = 5970846395) 202 mg/dL 70-110 H CREATININE (test code = 2160-0) 0.99 mg/dL 0.50-1.04 CALCIUM (test code = 2812841665) 8.8 mg/dL 8.6-10.6 eGFR (test code = 04601-2) 63.4 mL/min/1.73m2 CKD-EPI eGFR (2020). Assuming creatinine has been stable day-to-day for at least three months, the eGFR indicates Category G2 (60 - 89 mL/min/1.73 m2) Lab Interpretation (test code = 60937-4) Abnormal [facility]eville[facility]osph[facility]2024-[facility]-17 10:20:26* Test Item Value Reference Range Interpretation Comme nts PHOSPHORUS (test code = 5184067005) 4.0 mg/dL 2.5-5.0 Lab Interpretation (test cod e = 15012-8) Normal [facility]eville[facility]b with [id number] 09:58:20* Test Item Value Reference Range Interpretation Comme nts WBC (test code = 6690-2) 13.89 4.30-11.10 H RBC (test code = 789-8) 2.67 3.93-5.25 L HGB (test code = 718-7) 8.6 g/dL 11.6-15.0 L HCT (test code = 4544-3) 26.2 % 35.7-45.2 L MCV (test code = 787-2) 98.1 fL 80.6-95.5 H MCH (test code = 785-6) 32.2 pg 25.9-32.8 MCHC (test code = 786-4) 32.8 g/dL 31.6-35.1 RDW-SD (test code = 89576-9) 46.7 fL 39.0-49.9 RDW-CV (test code = 788-0) 13.2 % 12.0-15.5 PLT (test code = 777-3) 220 166-358 MPV (test code = 04787-5) 10.6 fL 9.5-12.9 NRBC/100 WBC (test code = 0764003664) 0.0 0.0-10.0 NRBC x10^3 (test code = 5826482826) See_Comment [Automated message] The system which generated this result transmitted reference range: 10*3/?L. The reference range was not used to interpret this result as normal/abnormal. GRAN MAT (NEUT) % (test code = 770-8) 91.3 % IMM GRAN % (test code = 2674861515) 0.90 % LYMPH % (test code = 736-9) 4.7 % MONO % (test code = 5905-5) 3.0 % EOS % (test code = 713-8) 0.0 % BASO % (test code = 706-2) 0.1 % GRAN MAT x10^3(ANC) (test code = 0282993221) 12.69 10*3/uL 1.88-7.09 H IMM GRAN x10^3 (test code = 2466296984) 0.12 10*3/uL 0.00-0.06 H LYMPH x10^3 (test code = 731-0) 0.65 10*3/uL 1.32-3.29 L MONO x10^3 (test code = 742-7) 0.42 10*3/uL 0.33-0.92 EOS x10^3 (test code = 711-2) 0.03-0.39 L BASO x10^3 (test code = 704-7) 0.01-0.07 Lab Interpretation (test code = 75148-4) Abnormal [facility] Acid Whole [id number] 09:57:09* Test Item Value Reference Range Interpretation Comme [facility] LACTIC ACID (test code = 6523412567) 1.53 mmol/L 0.50-2.20 Lab Interpretation (test cod e = 50512-2) Normal [facility]2023-12-20 02:15:00* Test Item Value Reference Range Interpretation Comme [facility] POCT GLU (test code = 2132060890) 188 mg/dL 70-110 H Lab Interpretation (test cod e = 91392-7) Abnormal [facility]an[facility] (TTE) [id number] 22:06:00* Test Item Value Reference Range Interpretation Comme nts Height (test code = 2918292689) 65 in Weight (test code = 2182307754) 200 lbs Systolic BP (test code = 2231568905) 83 mmHg Diastolic BP (test code = 4175570040) 58 mmHg Heart Rate (test code = 8775232894) 78 bpm BSA (test code = 2625971520) 1.98 m2 Ao root diam (test code = 1691581862) 3.30 cm Aortic root (test code = 7340058250) 3.3 cm Ao root annulus (test code = 6219588847) 3.3 cm LVOT diameter (test code = 1318516329) 1.88 cm LVOT area (test code = 0631235507) 2.80 cm2 LA size (test code = 4680377421) 3.6 cm LAV(MOD-sp4) (test code = 4635351449) 26.70 mL E wave decelartion time (test code = 2122800152) 0.23 s MV Peak A He (test code = 0326754234) 101.7 cm/s MV stenosis pressure 1/2 time (test code = 7308548063) 67.3 ms MV Peak E He (test code = 7141822327) 94.9 cm/s E/A ratio (test code = 3497476034) 0.93 ratio MV Prop V (test code = 3506425913) 45.70 cm/s MV E/e' septal (test code = 8426260700) 11.7 cm/s Tapse (test code = 3533940028) 1.65 cm LVOT stroke volume (test code = 3934758394) 64.30 cm3 LVOT peak he (test code = 1839890838) 119.5 cm/s LVOT mn grad (test code = 8188905088) 2.4 mmHg AV LVOT peak gradient (test code = 7477336043) 5.7 mmHg LVOT peak VTI (test code = 4960329330) 23.0 cm LV V1 mean (test code = 9095445059) 73.50 cm/s Aortic valve mean velocity (test code = 1260430463) 103.7 cm/s Ao peak he (test code = 7836490314) 149.2 cm/s Ao VTI (test code = 5441628559) 28.5 cm AV area by cont VTI (test code = 0610768546) 2.3 cm2 AV area peak he (test code = 3396566136) 2.2 cm2 Ao max PG (test code = 2805521518) 8.90 mm[Hg] AV peak gradient (test code = 8010175001) 8.9 mmHg AV valve area (test code = 1649285836) 2.26 cm2 AV mean gradient (test code = 7685312457) 4.7 mmHg LVIDD (test code = 2843915959) 4.20 cm Left Ventricular End Diastolic Volume by Teichholz Method (test code = 7060367) 76.5 mL IVS (test code = 4101589663) 0.92 cm Interventricular Septum Diastolic Thickness by 2D (test code = 9069120) 0.92 cm LVPWD (test code = 5503498199) 0.92 cm PW (test code = 5259622960) 0.92 cm 0.6-1.1 EF(Teich) (test code = 2882916868) 64.60 % LVIDS (test code = 3143095945) 2.70 cm Left Ventricular End Systolic Volume by Teichholz Method (test code = 1399817) 27.1 mL FS (test code = 5943367189) 35 % EF - 2D (test code = 57917648) 64.60 % Radiology Study observation (narrative) (test code = 76805-6) ABILIO (test code = ABLIIO) ?Left?Ventricle: Left ventricle size is normal. Normal wall thickness. Normal wall motion. ?Right?Ventricle: Right ventricle size is normal. Normal systolic function. ?Left?Atrium: Left atrium size is normal. ?Aortic?Valve: Aortic valve structure is normal. ?Pulmonic?Valve: Pulmonic valve is normal in structure and function. ?Mitral?Valve: Mitral valve structure is normal. ?Tricuspid?Valve: Tricuspid valve structure is normal. Trace transvalvular regurgitation. Right ventricular systolic pressure is normal. ?RA pressure is 0-5 mmHg. ?Aorta: Normal sized aorta. Left VentricleLeft ventricle size is normal. Normal wall thickness. Normal wall motion. No regional wall motion abnormalities. Normal systolic function with a visually estimated EF of 60 - 65%. There is impaired relaxation.Right VentricleRight ventricle size is normal. Normal systolic function.Left AtriumLeft atrium size is normal.Right AtriumRight atrium size is normal.Mitral ValveMitral valve structure is normal. Trace transvalvular regurgitation.Tricuspi d ValveTricuspid valve structure is normal. Trace transvalvular regurgitation. Right ventricular systolic pressure is normal. RA pressure is 0-5 mmHg.Aortic ValveAortic valve structure is normal. No transvalvular regurgitation.Pulmonic ValvePulmonic valve is normal in structure and function. Physiologically normal transvalvular regurgitation.Ascendin g AortaNormal sized aorta.PericardiumThe pericardium is normal. No pericardial effusion.Study DetailsStudy quality experienced technical difficulty. A complete echocardiogram was performed using 2D, color flow Doppler and spectral Doppler. [facility] GLUCOSE (AUTOMATED)2023-12-19 22:01:31* Test Item Value Reference Range Interpretation Comme nts POCT GLU (test code = 1998794058) 180 mg/dL 70-110 H Lab Interpretation (test cod e = 01912-2) [facility]normal [facility]2023-12-19 16:45:00* Test Item Value Reference Range Interpretation Comme nts ABO & RH (test code = 20) AB Positive [facility] GLUCOSE (AUTOMATED)2023-12-19 16:36:34* Test Item Value Reference Range Interpretation Comme nts POCT GLU (test code = 7460558228) 228 mg/dL 70-110 H Lab Interpretation (test cod e = 68918-7) [facility]normal [facility] [id number] 15:11:54EXAM: XR CHEST 1 VW HISTORY: 63 years-old Female with shortness of breath and fever. TECHNIQUE: Single frontal view of the chest. COMPARISON: Chest radiograph dated 09/22/2023, CT chest dated 08/30/2018. FINDINGS: Patient is rotated to the right. Lungs and pleura: The lungs are adequately expanded. No pneumothorax orsignificant pleural effusion is visualized. Peribronchial wall thickeningand reticulonodular opacities of the bilateral mid to lower lung (rightgreater than left). Background of chronic lung disease/emphysema. Heart/Mediastinum: The cardiac silhouette appears normal accounting fortechnique and degree of inspiration. Aortic arch calcification is present. Bones and soft tissues: No a cute osseous abnormality is visualized.[facility] without [id number] 14:38:21* Test Item Value Reference Range Interpretation Comme nts WBC (test code = 6690-2) 18.90 4.30-11.10 H RBC (test code = 789-8) 3.06 3.93-5.25 L HGB (test code = 718-7) 9.7 g/dL 11.6-15.0 L HCT (test code = 4544-3) 29.9 % 35.7-45.2 L MCH (test code = 785-6) 31.7 pg 25.9-32.8 MCV (test code = 787-2) 97.7 fL 80.6-95.5 H MCHC (test code = 786-4) 32.4 g/dL 31.6-35.1 PLT (test code = 777-3) 228 166-358 MPV (test code = 89184-2) 10.4 fL 9.5-12.9 RDW-CV (test code = 788-0) 13.3 % 12.0-15.5 RDW-SD (test code = 38674-7) 47.8 fL 39.0-49.9 NRBC x10^3 (test code = 1336709495) See_Comment [Automated [employer]] The system which generated this result transmitted reference range: 10*3/?L. The reference range was not used to interpret this result as normal/abnormal. NRBC/100 WBC (test code = 3014503115) 0.0 0.0-10.0 IPF % (test code = 9721633416) Lab Interpretation (test code = 44232-5) [facility]normal [facility] - ONCE [id number] 14:29:00* Test Item Value Reference Range Interpretation Comme nts ABO & RH (test code = 20) AB POSITIVE IAT (test code = 1185) Negative [facility] GLUCOSE (AUTOMATED)2023-12-19 12:52:30* Test Item Value Reference Range Interpretation Comme nts POCT GLU (test code = 4196692385) 198 mg/dL 70-110 H Lab Interpretation (test cod e = 39448-3) Abnormal [facility] GLUCOSE (AUTOMATED)2023-12-19 01:46:28* Test Item Value Reference Range Interpretation Comme nts POCT GLU (test code = 4706343202) 151 mg/dL 70-110 H Lab Interpretation (test cod e = 09015-4) Abnormal [facility]evilleGlycosylated Hemoglobin (A1C)2023-12-19 00:20:32* Test Item Value Reference Range Interpretation Comme nts HGB A1C (test code = 4548-4) 7.2 % 4.0-5.7 H ABILIO (test code = ABILIO) Reference RangesNormal: <5.7%Prediabetes: 5.7 - 6.4%Diabetes: > 6.5% Lab Interpretation (test code = 83566-0) Abnormal [facility]evilleMagnesium2024-08-15 23:17:29* Test Item Value Reference Range Interpretation Comme nts MAGNESIUM (test code = 5550646051) 0.9 mg/dL 1.7-2.4 L Lab Interpretation (test cod e = 47655-2) Abnormal [facility] THORAX WO [id number] 21:28:20 HISTORY: Pneumonia, complication suspected. TECHNIQUE: 64-Multidetector noncontrast enhanced CT of the chest isobtained. FINDINGS: Comparison is made with portable chest x-ray done today as wellas CTscan of the chest dated 08/30/2018. Right upper lobe showed irregular shaped complex 13 mm size lesion withspiculated borders. Subcentimeter lymph nodes are seen adjacent to thelower trachea, right main bronchus and in the subcarinal space, essentiallyunchanged when compared with previous study. Multifocal infiltrates are seen, most prominent in the right lower lobe,slightly less severe in the right middle lobe and additional areas ofinfiltrates present also in the right upper lobe. Some of the infiltratesshow cavitation and surrounding bronchiectasis in the some of theinfiltrates in the rightmiddle lobe and right lower lobe. No pleuraleffusion or pericardial effusion. Small ill-defined area of congestion noted in the anterior basal segment ofleft lower lung. Diffuse obstructive lung disease noted, more severeinvolving upper lobes. Small sliding hiatal hernia with probable gastroesophageal reflux. Chestwall soft tissues appear normal. Atherosclerosis is noted in the LADcoronary artery, left and right coronary artery. Visualized upper abdominalorgans are unremarkable. Deformity of T3 vertebral body could be secondary to remote fracture,unchanged since 2019. No aggressive bone lesions are seen. CONCLUSIONS: 1. Widespread abnormalities involving large portions of right middle lobe,right lower lobe, less of the right upper lobe and small portion of theanterior left lower lung. Findings are suggestive of multifocalinfiltrates, either bacterial or fungal type. No pleural effusion.2. 13 mm spiculated lesion in the right upper lobe could be residual scartissue from previous diffuse pneumonia in the same location seen in 2019study, however, tumor cannot BE ruled out.3. Small hiatal hernia with probable gastroesophageal reflux.[facility] WITH DIFF 2023-12-18 21:12:57* Test Item Value Reference Range Interpretation Comme nts WBC (test code = 6690-2) 16.88 4.30-11.10 H RBC (test code = 789-8) 3.51 3.93-5.25 L HGB (test code = 718-7) 11.4 g/dL 11.6-15.0 L HCT (test code = 4544-3) 33.9 % 35.7-45.2 L MCV (test code = 787-2) 96.6 fL 80.6-95.5 H MCH (test code = 785-6) 32.5 pg 25.9-32.8 MCHC (test code = 786-4) 33.6 g/dL 31.6-35.1 RDW-SD (test code = 93644-4) 47.7 fL 39.0-49.9 RDW-CV (test code = 788-0) 13.6 % 12.0-15.5 PLT (test code = 777-3) 298 166-358 MPV (test code = 19768-0) 11.5 fL 9.5-12.9 NRBC/100 WBC (test code = 4744592878) 0.0 0.0-10.0 NRBC x10^3 (test code = 5701219689) See_Comment [Automated message] The system which generated this result transmitted reference range: 10*3/?L. The reference range was not used to interpret this result as normal/abnormal. GRAN MAT (NEUT) % (test code = 770-8) 84.2 % IMM GRAN % (test code = 0420672171) 0.90 % LYMPH % (test code = 736-9) 5.0 % MONO % (test code = 5905-5) 9.2 % EOS % (test code = 713-8) 0.2 % BASO % (test code = 706-2) 0.5 % GRAN MAT x10^3(ANC) (test code = 8721213457) 14.21 10*3/uL 1.88-7.09 H IMM GRAN x10^3 (test code = 4319451717) 0.15 10*3/uL 0.00-0.06 H LYMPH x10^3 (test code = 731-0) 0.85 10*3/uL 1.32-3.29 L MONO x10^3 (test code = 742-7) 1.55 10*3/uL 0.33-0.92 H EOS x10^3 (test code = 711-2) 0.03 10*3/uL 0.03-0.39 BASO x10^3 (test code = 704-7) 0.09 10*3/uL 0.01-0.07 H BANDS (test code = 5882474003) MARKED INCREASED A Lab Interpretation (test code = 10880-1) [id number] 20:34:33* Test Item Value Reference Range Interpretation Comme nts TROPONIN I (test code = 2376295102) 0.009 ng/mL <=0.034 ABILIO (test code = ABILIO) Reference (Normal) Range (defined by the 99th percentile reference limit): <= 0.034 ng/mL Note: Cardiac troponin begins to rise 3-4 hours after the onset of ischemia. Repeat in 4-6 hours if the sample was drawn within 3-4 hours of the onset of the symptom and found normal. Diagnosis of myocardial injury is made with acute changes in cTn concentrations with at least one serial sample above the 99th percentile upper reference limit (URL), taken together with the patient's clinical presentation. Biotin has been reported to cause a negative bias, interpret results relative to patient's use of biotin. Lab Interpretation (test code = 85969-2) Normal [facility]AL [id number] 20:32:08* Test Item Value Reference Range Interpretation Comme nts NT-proBNP (test code = 71267-1) 140 pg/mL <=125 ABILIO (test code = ABILIO) Result Indeterminate-Consid er causes of NT-proBNP elevation other than Heart failure such as acute coronary syndrome, pulmonary embolism, pulmonary hypertension, sepsis, stroke, and renal dysfunction. Lab Interpretation (test code = 22011-9) Abnormal [facility]. METABOLIC PANEL (98998)2023-12-18 20:25:16* Test Item Value Reference Range Interpretation Comme nts NA (test code = 1103417845) 134 mmol/L 135-145 L K (test code = 4914446548) 2.7 mmol/L 3.5-5.0 LL CL (test code = 9244420255) 84 mmol/L 98-108 L CO2 TOTAL (test code = 3624460747) 40 mmol/L 23-31 H AGAP (test code = 6818562722) 10 2-16 BUN (test code = 5986119854) 54 mg/dL 7-23 H GLUCOSE (test code = 6872346061) 135 mg/dL 70-110 H CREATININE (test code = 2160-0) 1.64 mg/dL 0.50-1.04 H TOTAL BILI (test code = 2108738310) 0.7 mg/dL 0.1-1.1 CALCIUM (test code = 8009213559) 8.6 mg/dL 8.6-10.6 T PROTEIN (test code = 9107953497) 7.6 g/dL 6.3-8.2 ALBUMIN (test code = 9911693514) 4.3 g/dL 3.5-5.0 ALK PHOS (test code = 9193026783) 70 U/L 34-122 ALTv (test code = 1742-6) 29 U/L 5-35 AST(SGOT) (test code = 8186089399) 40 U/L 13-40 eGFR (test code = 04750-2) 34.6 mL/min/1.73m2 CKD-EPI eGFR (2020). Assuming creatinine has been stable day-to-day for at least three months, the eGFR indicates Category G3b (30 - 44 mL/min/1.73 m2) Lab Interpretation (test code = 14375-3) Abnormal [facility]evilleD-[id number] 20:17:46* Test Item Value Reference Range Interpretation Comments D-DIMER (test code = 1231609647) 0.64 See_Comment H [Automated message] The system which generated this result transmitted reference range: <0.50 ?g/mL (FEU). The reference range was not used to interpret this result as normal/abnormal. ABILIO (test code = ABILIO) This test may be used in conjunction with a clinical pretest probability (PTP) assessment model to exclude venous thromboembolism (VTE) in patients suspected of deep venous thrombosis (DVT) and pulmonary embolism (PE) A D-Dimer value less than 0.50 ?g/ml (FEU) has a negative predicative value of 96 to 100% (95% CI)and 97 to 100% (95% CI) as an aid in the diagnosis of deep vein thrombosis (DVT) and pulmonary embolism when there is low or moderate pretest probability of PE or DVT. D-Dimer values are expressed in initial fibrinogen equivalent units (FEU)" The assay results should be used with other information, including the clinical context, in forming a diagnosis. Lab Interpretation (test code = 98162-6) Abnormal [facility] 1 [id number] 14:45:43HISTORY: Shortness of breath. TECHNIQUE: Portable AP view of the chest is obtained. Comparison madewith08/30/2018 study. FINDINGS: Ill-defined increased markings are seen in the lower lungs,slightly more on the right side, likely chronic areas of pulmonaryfibrosis. Mild bilateral upper lobe obstructive lung disease noted. Thereis a faint 6 mm nodule in right upper lung. No acute pneumonia. No pneu mothorax or pleural effusion or pulmonarycongestion detected. Cardiac size is within normal limits.CONCLUSIONS: No signs of acute cardiopulmonary disease. Chronic changes ofbibasilar pulmonary fibrosis and one faintly visualized nodule in the rightupper lung. CT scan of the chest suggested.[facility]eville[facility]PREHENS[facility] METABOLIC [id number] 06:52:00* Test Item Value Reference Range Interpretation Comme nts SODIUM (test code = NA) 139 mmol/L 134-147 N POTASSIUM (test code = K) 4.0 mmol/L 3.4-5.0 N CHLORIDE (test code = CL) 98 mmol/L 100-108 L CARBON DIOXIDE (test code = CO2) 35 mmol/L 21-32 H ANION GAP (test code = GAP) 6.0 GAP calc 4.0-15.0 N GLUCOSE (test code = GLU) 118 MG/DL 70-110 H BLOOD UREA NITROGEN (test code = BUN) 18 MG/DL 7-18 N GLOMERULAR FILTRATION RATE (test code = GFR) >=60 max estimate estGFR >60 The Glomerular Filtration Rate is a calculated parameterbased on serum Creatinine, patient age and sex. GFR valuesless than 60 mL/min/1.73 square meters are indicative ofChronic Kidney Disease. Values less than 15 mL/min/1.73square meters indicate Kidney failure. The calculation forGFR is based on the CKD-EPI (2021) calculation. This formulais race indifferent and is the recommended formula for GFRby the National Kidney Foundation for Adults.The GFR will not calculate if the sex is unknown or if thepatient's age is <18 years. CREATININE (test code = CREAT) 0.8 MG/DL 0.6-1.0 N TOTAL PROTEIN (test code = PROT) 7.3 G/DL 6.4-8.2 N ALBUMIN (test code = ALB) 3.6 G/DL 3.4-5.0 N GLOBULIN (test code = GLOB) 3.7 GM/dL ALBUMIN/GLOBULIN RATIO (test code = A/G) 1.0 RATIO 1.2-2.2 L CALCIUM (test code = CA) 8.8 MG/DL 8.5-10.1 N BILIRUBIN TOTAL (test code = BILT) 0.40 MG/DL 0.2-1.2 N SGOT/AST (test code = AST) 28 Unit/L 15-37 N SGPT/ALT (test code = ALT) 18 Unit/L 12-78 N ALKALINE PHOSPHATASE TOTAL (test code = ALKP) 51 Unit/L 45-117 N LIPID PROFILE (CORONARY RISK)2022-10-19 06:52:00* Test Item Value Reference Range Interpretation Comme nts TRIGLYCERIDES (test code = TRIG) 125 MG/DL 0-150 N CHOLESTEROL (test code = CHOL) 225 MG/DL 133-200 H CHOLESTEROL/HDL RATIO (test code = CHOLHDL) 1.99 RATIO See_Comment RISK ASSOCIATED WITH CHOL/HDL RATIOS: RISK MALE FEMALE1/2 AVERAGE 3.43 3.27AVERAGE 4.97 4.442X AVERAGE 9.55 7.053X AVERAGE 23.39 11.04 NOTE THAT THE REFERENCE VALUE IS RELATED TO RISK LEVELS ASRECOMMENDED BY THE [facility]. [Automated message] The system which generated this result transmitted reference range: 0-. The reference range was not used to interpret this result as normal/abnormal. HDL CHOLESTEROL (test code = HDL) 113 MG/DL 40-59 H NON-HDL CHOLESTEROL (test code = NHDL) 112 mg/dL <130 LIPOPROTEIN LDL (test code = LDL) 92 MG/DL 0-129 N <100 [id number] 0 - 129 NEAR OPTIMAL/ABOVE [id number] - 159 [id number] - 189 HIGH>OR= 190 VERY HIGHNOTE THAT GUIDELINES ARE PROVIDED BY NATIONAL CHOLESTEROLEDUCATION PROGRAM ADULT TREATMENT PANEL III LDL/HDL (test code = LDL/HDL) 0.81 Ratio See_Comment L [Automated messa ge] The system which generated this result transmitted reference range: 1.48-3.22 Avg. The reference range was not used to interpret this result as normal/abnormal. [id number] 06:52:00* Test Item Value Reference Range Interpretation Comme nts MAGNESIUM (test code = MAG) 1.4 MG/DL 1.8-2.4 L PROTHROMBIN [id number] 06:41:00* Test Item Value Reference Range Interpretation Comme nts PT PATIENT (test code = PTP) 10.3 SECONDS 9.3-12.9 N INTERNATIONAL NORMAL RATIO (test code = INR) 0.93 INR Unit 0.8-1.2 N TARGET INR BY INDICATION Indication INR1. Prophylaxis of venous thrombosis 2.0 - 3.0 (orthopedic surgery), Prophylaxis of venous thrombosis (other than high-risk surgery), Treatment of Deep Vein Thrombosis/Pulmonary Embolism, Prevention of systemic embolism - Tissue heart valves, Acute Myocardial Infarction (to prevent systemic embolism), Valvular heart disease, Acute Myocardial Infarction (to prevent systemic embolism), Valvular heart disease, Atrial Fibrillation, Bileaflet mechanical valve in aortic position.2. Mechanical prosthetic valves (high risk), 2.5 - 3.5 Presence of Lupus Anticoagulant or Antiphospholipid Antibodies, Prevention of systemic embolism - Acute Myocardial Infarction (to prevent recurrent infarct). THROMBOPLASTIN TIME [id number] 06:41:00* Test Item Value Reference Range Interpretation Comme nts THROMBOPLASTIN TIME PARTIAL (test code = PTT) 25.9 SECONDS 26-35 L CBC W/AUTO [id number] 06:35:00* Test Item Value Reference Range Interpretation Comme nts WHITE BLOOD CELL (test code = WBC) 9.5 K/mm3 3.5-11.0 N RED BLOOD CELL (test code = RBC) 4.39 M/mm3 4.70-6.10 L HEMOGLOBIN (test code = HGB) 12.4 G/DL 10.4-14.9 N HEMATOCRIT (test code = HCT) 40.8 % 31.5-44.1 N MEAN CELL VOLUME (test code = MCV) 92.9 Fl 84.5-98.6 N MEAN CELL HGB (test code = MCH) 28.2 pg 27.0-34.2 N MEAN CELL HGB CONCETRATION (test code = MCHC) 30.4 G/DL 31.5-34.0 L RED CELL DISTRIBUTION WIDTH (test code = RDW) 13.4 SD 11.5-14.5 N PLATELET COUNT (test code = PLT) 207 K/mm3 150-450 N MEAN PLATELET VOLUME (test c ode = MPV) 10.40 fL 7.0-10.5 N NEUTROPHIL % (test code = NT%) 73.4 % 40-76 N IMMATURE GRANULOCYTE % (test code = IG%) 0.5 % 0.0-5.0 N LYMPHOCYTE % (test code = LY%) 19.7 % 20.5-51.1 L MONOCYTE % (test code = MO%) 5.0 % 1.7-9.3 N EOSINOPHIL % (test code = EO%) 0.7 % 0.0-6.0 N BASOPHIL % (test code = BA%) 0.7 % 0.0-2.0 N NUCLEATED RBC % (test code = NRBC%) 0.0 /100WBC% 0.0-1.0 N NEUTROPHIL # (test code = NT#) 7.0 K/mm3 1.8-7.6 N IMMATURE GRANULOCYTE # (test code = IG#) 0.05 x10 3/uL 0.00-0.03 H LYMPHOCYTE # (test code = LY#) 1.9 K/mm3 0.6-3.2 N MONOCYTE # (test code = MO#) 0.5 K/mm3 0.3-1.1 N EOSINOPHIL # (test code = EO#) 0.1 K/mm3 0.0-0.4 N BASOPHIL # (test code = BA#) 0.1 K/mm3 0.0-0.1 N NUCLEATED RBC # (test code = NRBC#) 0.0 K/mm3 0.0-0.1 N MANUAL DIFF REQUIRED (test c ode = MDIFF) NO DIFF/SCN CRITERIA PATHOLOGIST INTERPRETATION (test code = CBCI) Consult Notes Date/Time Note Provider Source 2024-04-18 09:15:00 Associated Order(s): CONSULT ADULT PHYSICAL THERAPY Patient agreeable to working with physical therapy. Patient semireclining in bed, no scd not elevated . Recommend nursing staff utilize ind to safely assist patient with mobility out of the bed or chair. PHYSICAL THERAPY EVALUATION Consult received, chart reviewed and evaluation complete this date. Patient is referred to PT for evaluation and treatment. Patient is a 64 year old female who presents to hospital for GERMAN (acute kidney injury) [N17.9] . Discharge Recommendations: Therapy Needs and Potential: Patient would benefit from continued physical therapy services to address: decline in gait and/or balance decreased endurance Patient demonstrates good potential to improve and meet therapy goals with further physical therapy services. Patient appears motivated to improve their functional mobility and return to their previous level of function. Patient demonstrates ability to tolerate atleast 30-60 minutes of physical therapy with active participation. Challenges to Home Transition: increased risk of falls decreased caregiver availability environmental barriers Patient with no car, limited community support, reports not able to travel to outpatient visits for therapy post D/C Patient reports her family will not be able to pick her up from the hospital, will need assistance with travel home Equipment recommendations: Given patient has previous failures with outpatient therapy and no car, she will benefit from home health based pulmonary therapy Patient with decreased endurance will benefit from 3 in 1 potty chair to facilitate reduced fall risk and increased independence during showers Rolling Walker or Rollator: I certify that Tino Doss is under my care and that I had a [id number] encounter with this patient on: 04/18/2024 . The primary reason for the durable medical equipment: chronic shortness of breath and decreased endurance contributing to fall risk during community ambulation. I am ordering and certify that, based on my findings, the following is medically necessary durable medical equipment: Rollator. Patient has a mobility limitation that significantly impairs his/her ability to participate in one or more mobility-related activities of daily living (MRADL) in the home and the patient is able to safely use the walker and the functional mobility deficit can be sufficiently resolved with use of a walker. Height: Ht Readings from Last 1 Encounters: 04/16/24 5' 7" (1.702 m) Weight: Wt Readings from Last 1 Encounters: 04/16/24 195 lb (88.5 kg) Duration of need: 99 months. Current Functional Status and/or Treatment: AM-PAC 6 Clicks (Raw Score 0=Dependent, 24=Independent; Low function Raw Score 0= Dependent, 32=Independent): Raw Score - Basic Mobility : 24 T-Scale Score - Basic Mobility : 57.68 Bed Mobility: Rolling: Independent Supine-sit: Independent Sit to supine: Independent Sitting balance Good Scooting to edge of bed: Independent Dizziness No Transfers: sit-stand: Independent Stand pivot transfer: Independent Static/dynamic standing balance: Good Assessed patient with increased respiration rate and HR from 70-110s with simple transfers measure by finger pulse ox Dizziness No Ambulation: Assisted patient with ambulation as follows: 60 feet using no device and Supervision. Patient presenting with Step-through gait pattern. Assessed patient to become SOB with minimal ambulation requiring 4x standing rest breaks during household ambulation distances, standing rest breaks approx every 15 feet. Patient declies from comfortable conversation at rest, to not being able to converse during ambulation. HR observed to increase from 110s-130 during ambulation, ambulation ceased upon observation of tachycardia. During standing rest breaks patient requires BUE support on grab bars or bed rails, assumes tripod position upon completion of ambulation, 2-3 min rest break and pulse returns to 80-90s, normal conversation resumes. Patient on O2 for duration of session with SPO2 reading 96-97% Dizziness No Therapeutic exercise: patient educated in Fall prevention, Positioning, and Safety awareness. Functional Outcome Measures: (Values within the past 12 hours) Tinetti Gait Score- # / 12 Initiation of gait: No hesitancy Step length: On both sides, swing foot passes stance foot Foot clearance: Both feet completely clear floor Step Symmetry: Step lengths equal Step continuity: Steps appear continuous Path: Straight without AD Trunk: No sway, no flexion, no use of arms, no use of AD Walking: Heels almost touching Tinetti Gait Score: 12 Tinetti Gait Score Interpretation: >= 7 - Low risk for falls TINETTI BALANCE SCORE- # / 16 Sitting balance: Steady, safe Arises: Able without using arms Attempts to Rise: Able to rise, 1 attempt Immediate standing balance (first 5 sec): Steady without walker or other support Standing Balance: Narrow stance without support Nudged 3 times *: Steady Eyes closed*: Steady Turning 360 degrees: Continuous steps and steady Sitting down: Safe smooth Tinetti Balance Score: 16 Tinetti Balance Interpretation: >= 9 - Low risk for falls After session, patient seated edge of bed and Heels offloaded? No, . Call button provided. PLAN OF CARE: While in the hospital, PT will follow patient at least 1 times per week,once or twice a day, per patient's tolerance and needs. See below for complete details. Admit Date: 04/16/2024 Hospital Diagnosis:GERMAN (acute kidney injury) [N17.9] PT Diagnosis: Weakness, Malaise/fatigue, Dyspnea, and Abnormality of gait and balance Weight Bearing Precaution: NA General Precautions: PPE used:Gloves, General, Fall, Nasal cannula 4lpm Bracing/Cast present or required:N/A PMH: Past Medical History: Diagnosis Date Anxiety Asthma COPD (chronic obstructive pulmonary disease) inhaler prn Depression Diabetes mellitus controlled Esophageal reflux controlled Hyperlipidemia Hypertension Stroke TIA 1992; [facility] ([place]) Thyroid disease TIA (transient ischemic attack) 1992 no residual effects PSH: Past Surgical History: Procedure Laterality Date HERNIA REPAIR SACROILIAC JOINT INJECTION Left 09/22/2017 Surgeon: Dutch Bennett MD; Location: [facility] [place] SPINE SURGERY lower back (Thoracic); hospital in [place], ~2015 TUBAL LIGATION PRIOR LIVING SITUATION: lives alone, Needs assistance: yes, currently has home health provider for chores around the house DME: No device Prior level of Mobility: house hold ambulation, patient reports until today, she only ambulates in her small [place] and uses a WC to get from her front door to ride service in the street Suspected ischemic or hemorraghic stroke:No Subjective: see above, patient reports limited access to care in [place] as well as limited community support Patient/Family Goals: " get some therapy so my breathing can get better" Patient/Family verbalizes understanding of condition: Yes PAIN: denies pain before and after session COMMUNICATION Primary Language: Malian Able to Verbalize needs: Yes Vision:good; no issues reported Hearing:good; no issues reported ORIENTATION/COGNITION: Oriented to: person, place, date/time, and situation Awake: Yes Alert: Yes Dizzy: No Follows Commands: Yes 1-Step Yes Multi-Step Yes Inconsistent: No NEUROLOGICAL Light Touch: within functional limits bilateral LE, Heel to glover: wfl Tone: wfl BALANCE: Sitting: Static: Good Dynamic: Good Standing: Static: Good Dynamic: Good RANGE OF MOTION: within functional limits bilateral LE, STRENGTH: 4-/5 (G-), bilateral LE ENDURANCE: Poor, Nasal canula SKIN INTEGRITY: intact, No erythema, edema near IV site, see nursing notes for details PROBLEM LIST: Decline in gait, Decreased strength, and Decreased endurance ASSESSMENT: Patient is a 64 year old female seen secondary to the above listed diagnosis. Patient would benefit from continued PT to address the above listed deficits to maximize independence and safety with functional mobility. Rehabilitation Potential: good Goals: The following goals are to maximize independence and safety with functional mobility to eventually return to prior living situation and prior functional status. Upon discharge, patient and/or family will demonstrate the followin. Independent with ambulation, Feet: 150 using rollator. Treatment Plan: Gait training, Gait training on stairs, Therapeutic exercise, Transfer training, Balance training, Bed mobility training, Equipment needs assessment, Safety education, patient/caregiver education, Wheelchair mobility training, Pain management, Neuromuscular Re-Education, Sensory Integration, and Functional Motor Training PATIENT EDUCATION: Patient provided with preferred teaching of verbal information and demonstration on role of PT, plan of care, . Shows readiness to learn. Verbal instruction and Demonstration teaching provided. Individual is able to read and verbalizes understanding of teaching provided and accurately returns demonstration of skill. Total Time Tx Codes in Minutes: 15 min Total Treatment Time in Minutes: 30 min Maurice Morley PT, DPT Rehabilitation Services [employer] Maurice Morley PT [facility] - Health History and Physical Notes Date/Time Note Provider Source 2024-04-16 16:14:20 MEDICINE [facility] H&P PCP: Dr. Brock Harper Date of Service: 04/16/2024 CHIEF COMPLAINT: chronic breathlessness Subjective History of Present Illness 64 year old female with PMH of COPD on chronic oral steroids, NIDDM T2DM, CKD3a, opioid dependence in remission at least 10 years, hypothyroidism, anxiety and depression, on Depakote for 5 years for "brain zaps." Patient reports that she was admitted three months ago for pneumonia and since then her breathing has not been the same. She can't walk 10 feet without feeling breathless. She uses oxygen constantly at home at 5L/min. Patient reports chronic cough without sputum production at baseline for many weeks. Denies wheezing. She reports overall her respiratory health has been the same for the past three months on Anoro BID and albuterol rescue inhaler about two times a week. She has been on prednisone 10 mg for 4 months. 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 She feels afraid to leave the house because of her breathlessness. She has not been to pulmonary rehab. Patient does not have a car and feels that she cannot go to rehab outpatient due to exertion involved in leaving the home. Patient reports she has not been eating and drinking well for the past three months. She has been having nausea without vomiting. She has lost about 16 pounds in the past three months. She cannot stand at the stove to cook due to breathlessness. She takes ibuprofen sometimes for headache, last taken 1 month ago. She endorses abdominal pain and loose bowel movements in the past two days. Had 1 loose BM yesterday. Endorses urinating frequently on furosemide TID. Uses 1 pillow at night. Denies PND. Had leg swelling only recently a few months ago and her lasix was increased from BID to TID in February. Denies fevers, chills, chest pain, dyspnea at rest, abdominal pain, constipation, dysuria, seizures, or headache. Patient received 2L NS, 40 mEq Kcl oral and 10 meq kcl IV, magnesium IV 2g in the ER at [facility]. PAST MEDICAL HISTORY Past Medical History: Diagnosis Date Anxiety Asthma COPD (chronic obstructive pulmonary disease) inhaler prn Depression Diabetes mellitus controlled Esophageal reflux controlled Hyperlipidemia Hypertension Stroke TIA 1992; [facility] ([place]) Thyroid disease TIA (transient ischemic attack) 1992 no residual effects Past Surgical History: Procedure Laterality Date HERNIA REPAIR SACROILIAC JOINT INJECTION Left 09/22/2017 Surgeon: Dutch Bennett MD; Location: [facility] [place] SPINE SURGERY lower back (Thoracic); hospital in [place], ~2014 TUBAL LIGATION Family History Problem Relation Age of Onset Colon Cancer Mother Lung Cancer Father Diabetes Brother Breast Cancer NoFHx ALLERGIES No Known Allergies MEDICATIONS No current facility-administered medications on file prior to encounter. Current Outpatient Medications on File Prior to Encounter Medication Sig Dispense Refill losartan 50 mg tablet TAKE 1 TABLET BY MOUTH IN THE MORNING AND IN THE EVENING 60 tablet 0 ANORO ELLIPTA 62.5-25 mcg/actuation inhalation disk INHALE 1 PUFF BY MOUTH DAILY 60 Each 2 bisoprolol 5 mg tablet Take 1 tablet by mouth in the morning. 90 tablet 2 Magnesium Oxide 500 mg Tab TAKE 1 TABLET BY MOUTH EVERY NIGHT ALBUTEROL 90 mcg/actuation inhaler INHALE 2 PUFFS BY MOUTH EVERY 6 HOURS NEEDED FOR WHEEZING OR SHORTNESS OF BREATH 8.5 g 11 aspirin 81 mg chewable tablet Take 81 mg by mouth daily. Cholecalciferol, Vitamin D3, 5,000 unit capsule Take by mouth. buprenorphine-naloxone (SUBOXONE) 8-[address] 8 mg under the tongue 2 (two) times daily. Levothyroxine 150 mcg capsule Take 150 mcg by mouth daily. metFORMIN 500 mg tablet Take 500 mg by mouth daily. rosuvastatin 10 mg tablet Take 10 mg by mouth at bedtime. SOCIAL HISTORY Social History Socioeconomic History Marital status: Single Tobacco Use Smoking status: Former Current packs/day: 0.00 Average packs/day: 1.5 packs/day for 32.0 years (48.0 ttl pk-yrs) Types: Cigarettes Start date: 1967 Quit date: 2000 Years since quittin.9 Smokeless tobacco: Never Vaping Use Vaping status: Never Used Substance and Sexual Activity Alcohol use: No Drug use: No Sexual activity: Never Social Determinants of Health Financial Resource Strain: Low Risk (12/19/2023) Overall Financial Resource Strain (CARDIA) Difficulty of Paying Living Expenses: Not hard at all Food Insecurity: No Food Insecurity (12/19/2023) Hunger Vital Sign Worried About Running Out of Food in the Last Year: Never true Ran Out of Food in the Last Year: Never true Physical Activity: Inactive (12/19/2023) Exercise Vital Sign Days of Exercise per Week: 0 days Minutes of Exercise per Session: 0 min Social Connections: Unknown (12/19/2023) Social Connection and Isolation Panel [NHANES] Frequency of Communication with Friends and Family: Three times a week Marital Status: Never Housing Stability: Low Risk (12/19/2023) Housing Stability Vital Sign Unable to Pay for Housing in the Last Year: No Number of Places Lived in the Last Year: 1 Unstable Housing in the Last Year: No REVIEW OF SYSTEMS As per HPI Objective Vitals: 04/16/24 1109 04/16/24 1142 04/16/24 1523 04/16/24 1547 BP: (!) 88/71 111/72 (!) 144/78 Pulse: 94 91 117 Resp: Temp: 37 ?C (98.6 ?F) TempSrc: SpO2: 100% 100% 91% Weight: 88.5 kg (195 lb) Height: 1.702 m (5' 7") Constitutional: alert and oriented, no apparent distress HEENT: normocephalic atraumatic, moist mucous membranes Resp: clear to auscultation bilaterally, no respiratory distress Cardio: regular rate and rhythm, brisk cap refill GI: soft; non-tender; non-distended; normoactive bowel sounds MSK: no clubbing, cyanosis, or edema Integ: no rashes Psych: normal affect LABS/IMAGING - reviewed Assessment & Plan Tino Doss is a 64 year old female with PMH as listed above, admitted to the hospital with: GERMAN on CKD3a Hypokalemia Hypomagnesemia Patient presents with GERMAN and electrolyte abnormalities likely pre-renal due to poor PO intake in the setting of increased furosemide dose outpatient. Patient also takes NSAIDs intermittently for pain. Patient is s/p 2 L of NS and appears euvolemic on exam. Will avoid renally cleared medications and repeat labs to monitor for improvement. - Admit to [facility] [place] - Admit labs: CBC, CMP, Mg, A1c - Replete electrolytes PRN - encourage PO intake, zofran prn - hold home lasix Chronic conditions COPD on chronic oral steroids NIDDM T2DM Opioid dependence in remission at least 10 years Hypothyroidism HTN Anxiety and depression Insomnia On Depakote for "brain zaps" Patient has severe chronic COPD on oral steroids, not in acute exacerbation. Will need to refer to pulm rehab on discharge. Will continue most chronic home meds and hold renally cleared ones. - continue home oral prednisone, duonebs PRN - continue home suboxone, aspirin, levothyroxine, zolpidem, and depakote - hold home high dose statin, venlafaxine, losartan iso renal impairment - hold home metformin Prophylaxis: DVT- heparin Code Status: Prior Samina Zamorano M.D. Internal Medicine, PGY-1 [employer] Associated attestation - Manolo Hernandez MD - 04/17/2024 1:07 PM [employer] 04/17/2024 Patient seen and examined and case discussed with Dr. Robert Barbour on rounds this morning and I agree with his presentation, assessment, and plan from today 04/17/2024. I have also reviewed the H&P by Dr. Samina Zamorano and I agree with her history, physical examination, assessment and plan from admit yesterday afternoon 04/16/2024 for GERMAN on CKD due to decreased PO intake. Manolo Hernandez MD 04/17/2024 1:03 PM [facility] 2023-12-18 23:49:13 [facility] Hospitalist Admission H&P Date of Service: 12/18/2023 CHIEF COMPLAINT: Patient with fever and shortness of breath HISTORY OF PRESENT ILLNESS Tino Doss is a 63 year old female who presents with fever and shortness of breath. Patient states that yesterday she was coming out of [facility] and she had gone to [employer] to eat. She had always finished her food when she started having a hard time swallowing her food and she started choking. She states she choked really bad on her food, she had tears in her eyes. Her daughter was with her and she noted that her mother was having a hard time with her breathing. Patient was brought into the emergency room for further evaluation. In the ER patient was found to have multifocal pneumonia mainly in the right middle and right lower lobe. Patient will be admitted to the hospital for f inpatient hospitalization. Patient with a history of COPD with emphysematous changes on imaging studies. Patient also with hypertension, diabetes, and hyperlipidemia. Patient will be admitted in medical issues will be monitored closely. PAST MEDICAL HISTORY Past Medical History: Diagnosis Date Anxiety Asthma COPD (chronic obstructive pulmonary disease) inhaler prn Depression Diabetes mellitus controlled Esophageal reflux controlled Hyperlipidemia Hypertension Stroke TIA 1992; [facility] ([place]) Thyroid disease TIA (transient ischemic attack) 1992 no residual effects PAST SURGICAL HISTORY Past Surgical History: Procedure Laterality Date HERNIA REPAIR SACROILIAC JOINT INJECTION Left 09/22/2017 Surgeon: Dutch Bennett MD; Location: [facility] [place] SPINE SURGERY lower back (Thoracic); hospital in [place], 2014 TUBAL LIGATION ALLERGIES No Known Allergies MEDICATIONS Current home medication list reviewed: Current Discharge Medication List STOP taking these medications losartan 50 mg tablet Comments: Reason for Stopping: ANORO ELLIPTA 62.5-25 mcg/actuation inhalation disk Comments: Reason for Stopping: bisoprolol 5 mg tablet Comments: Reason for Stopping: Magnesium Oxide 500 mg Tab Comments: Reason for Stopping: ALBUTEROL 90 mcg/actuation inhaler Comments: Reason for Stopping: aspirin 81 mg chewable tablet Comments: Reason for Stopping: Cholecalciferol, Vitamin D3, 5,000 unit capsule Comments: Reason for Stopping: buprenorphine-naloxone (SUBOXONE) 8-2 mg sublingual film Comments: Reason for Stopping: Levothyroxine 150 mcg capsule Comments: Reason for Stopping: metFORMIN 500 mg tablet Comments: Reason for Stopping: rosuvastatin 10 mg tablet Comments: Reason for Stopping: FAMILY HISTORY Family History Problem Relation Age of Onset Colon Cancer Mother Lung Cancer Father Diabetes Brother Breast Cancer NoFHx SOCIAL HISTORY Social History Socioeconomic History Marital status: Single Tobacco Use Smoking status: Former Current packs/day: 0.00 Average packs/day: 1.5 packs/day for 32.0 years (48.0 ttl pk-yrs) Types: Cigarettes Start date: 1967 Quit date: 2000 Years since quittin.6 Smokeless tobacco: Never Vaping Use Vaping status: Never Used Substance and Sexual Activity Alcohol use: No Drug use: No Sexual activity: Never REVIEW OF SYSTEMS 10 systems negative except per HPI PHYSICAL EXAMINATION BP (!) 124/92 | Pulse 105 | Temp 37 ?C (98.6 ?F) (Tympanic) | Resp 17 | Ht 1.651 m (5' 5") | Wt 90.7 kg (200 lb) | SpO2 99% | BMI 33.28 kg/m? General: No acute distress HEENT: Normal oral mucosa, anicteric sclerae, NCAT Cardiovascular: RRR Lungs: Patient with rhonchi and diminished breath sounds Abdomen: Soft, NTND Musculoskeletal: No synovitis, normal muscle mass Genitourinary: Deferred Skin: No rash, no skin lesions Extremities: No clubbing, no cyanosis, no lower extremity edema Neuro: AAOx3, no focal deficits Psych: Normal affect LABS - reviewed pertinent labs as below: CBC BMP PT/INR WBC (10*3/?L) Date Value 12/18/2023 16.88 (H) NA (mmol/L) Date Value 12/18/2023 134 (L) No results found for: "PT" RBC (10*6/?L) Date Value 12/18/2023 3.51 (L) K (mmol/L) Date Value 12/18/2023 2.7 (LL) INR (no units) Date Value 09/16/2017 1.0 PLT (10*3/?L) Date Value 12/18/2023 298 CALCIUM (mg/dL) Date Value 12/18/2023 8.6 HGB (g/dL) Date Value 12/18/2023 11.4 (L) CL (mmol/L) Date Value 12/18/2023 84 (L) aPTT HCT (%) Date Value 12/18/2023 33.9 (L) BUN (mg/dL) Date Value 12/18/2023 54 (H) APTT Patient (Seconds) Date Value 09/16/2017 27 CREATININE (mg/dL) Date Value 12/18/2023 1.64 (H) IMAGING - reviewed, pertinent results as below: Hospital Encounter on 12/18/23 CT THORAX WO CONTRAST Narrative HISTORY: Pneumonia, complication suspected. TECHNIQUE: 64-Multidetector noncontrast enhanced CT of the chest is obtained. FINDINGS: Comparison is made with portable chest x-ray done today as well as CT scan of the chest dated 08/30/2018. Right upper lobe showed irregular shaped complex 13 mm size lesion with spiculated borders. Subcentimeter lymph nodes are seen adjacent to the lower trachea, right main bronchus and in the subcarinal space, essentially unchanged when compared with previous study. Multifocal infiltrates are seen, most prominent in the right lower lobe, slightly less severe in the right middle lobe and additional areas of infiltrates present also in the right upper lobe. Some of the infiltrates show cavitation and surrounding bronchiectasis in the some of the infiltrates in the right middle lobe and right lower lobe. No pleural effusion or pericardial effusion. Small ill-defined area of congestion noted in the anterior basal segment of left lower lung. Diffuse obstructive lung disease noted, more severe involving upper lobes. Small sliding hiatal hernia with probable gastroesophageal reflux. Chest wall soft tissues appear normal. Atherosclerosis is noted in the LAD coronary artery, left and right coronary artery. Visualized upper abdominal organs are unremarkable. Deformity of T3 vertebral body could be secondary to remote fracture, unchanged since 2019. No aggressive bone lesions are seen. CONCLUSIONS: 1. Widespread abnormalities involving large portions of right middle lobe, right lower lobe, less of the right upper lobe and small portion of the anterior left lower lung. Findings are suggestive of multifocal infiltrates, either bacterial or fungal type. No pleural effusion. 2. 13 mm spiculated lesion in the right upper lobe could be residual scar tissue from previous diffuse pneumonia in the same location seen in 2019 study, however, tumor cannot BE ruled out. 3. Small hiatal hernia with probable gastroesophageal reflux. XR CHEST 1 VW Narrative EXAM: XR CHEST 1 VW HISTORY: 63 years-old Female with shortness of breath and fever. TECHNIQUE: Single frontal view of the chest. COMPARISON: Chest radiograph dated 09/22/2023, CT chest dated 08/30/2018. FINDINGS: Patient is rotated to the right. Lungs and pleura: The lungs are adequately expanded. No pneumothorax or significant pleural effusion is visualized. Peribronchial wall thickening and reticulonodular opacities of the bilateral mid to lower lung (right greater than left). Background of chronic lung disease/emphysema. Heart/Mediastinum: The cardiac silhouette appears normal accounting for technique and degree of inspiration. Aortic arch calcification is present. Bones and soft tissues: No acute osseous abnormality is visualized. Impression Lung findings could be seen with bronchitis and aspiration/infection or atypical/viral lower respiratory tract infection. Background of chronic lung disease/emphysema. Preliminary Report Dictated by Resident: Fatemeh Hayden ASSESSMENT: 1. Patient with right middle lobe and right lower lobe pneumonia with aspiration pneumonia with a spiculated mass 2. Patient with COPD along with emphysematous changes 3. Leukocytosis 4. Prerenal azotemia 5. History of DM/hypertension/hyperlipidemia /hypothyroid 6. History of depression 7. History of GERD 8. History of TIA PLAN: 1. Patient with aspiration pneumonia along with COPD changes with emphysema; continue with IV antibiotics along with nebs and steroids. Will give antibiotics for aspiration coverage. Patient was hypoxic and will continue monitoring oxygenation. Patient does have home oxygen but she does not use it. Will treat her pneumonia with aspiration coverage and will await culture results. Patient does have a questionable spiculated mass on her CT scan which needs to be further evaluated with pulmonary follow-up. 2. History of metabolic syndrome; resume home medications for strict blood pressure and blood sugar control as well as statins and thyroid medications. Continue with antidepressants as well. 3. History of GERD; continue with PPI 4. Prerenal azotemia/GERMAN; gentle hydration and reassess in the morning 5. History of GERD; continue with PPI 6. History of TIA; platelets and statin therapy DVT prophylaxis: enoxaparin Stress ulcer prophylaxis: pantoprazole Code status: FULL Advanced Care Planning (Z71.89) Above assessment and plan discussed at length with patient, patient expressed full understanding. Questions and concerned addressed. Surrogate decision maker: NO Level of care expected after discharge: HOME Time spent: 3 minutes discussing the advanced care plan Smoking Cessation: (Z71.6) Tobacco user?: NO Patient will require inpatient stay of 2 midnights or more given high risk of morbidity and mortality. [place] MANAGER DOCUMENTATION was verified during stay Marzena Posey MD IM-INTERNAL MEDICINE STAFF [facility] Notes Date/Time Note Provider Source David Fine [facility]2025-06-26 00:00:00 David Fine [place] [id number] 16:15:59 Attempted to contact patient. Unable to leave message. My Chart message sent. Tiff Mendez RNElyria [facility] [id number] 11:51:00 Attempted to call patient for clarification, no answer. Can we please reach out to her and see what she is actually using. If she is consistently needing to use more than 2 LPM we should repeat a six minute walk test. Thanks. T [place] [id number] 14:42:40 Patient went to [facility] for oxygen treatment consult per [facility] patient rep she is Rx o2 at 2L [place] but is using 6L while there. Was told should not use more then prescribed. Rep asking to inform MD and see if needing to be seen for oxygen evaluation. Or needing new Rx orders. Lorrie Arvizu MAElyria Memorial [id number] 14:18:09 reviewed and signed. Faxed back, pending approval. [place] [id number] 16:51:36 Fax revieved from [facility] for DME/Nebulizer. Placed in MD folder for review. [facility] [id number] 06:59:07 Sherlyn with [facility] left a message on voicemail stating they are able to accept the patient. They are in the process of confirming pt's PCP will follow HH. They will contact the patient. [employer] Geovanny Fontanez RNElyria Memorial [id number] 13:41:12 TRANSITIONAL CARE MANAGEMENT ASSESSMENT 04/20/2024 Tino Doss [id number] Tino Doss is a 64 year old /White female was admitted on 04/16/[address] She was discharged on 04/18/24 with discharge disposition of HR- Routine Discharge. Admitting Physician: Manolo Hernandez Discharge Diagnosis: FINAL DIAGNOSIS: GERMAN on CKD3a No linked episodes TCM [id number] outreach documentation: Discharge Assessment Chart Assessed: 04/20/24 TCM Outreach Completed: 04/20/24 Do you have a few minutes to speak with me about how you are doing at home?: Yes (Pt reports she is doing good.) Discharge Instructions Do you understand your at-home instructions?: Yes (No questions at this time.) Medications Have you filled your prescriptions and do you have them in your home? : See comments (Pt has not picked up yet.) Do you know how to take your medications?: Yes Supplies Did you receive applicable home medical supplies/equipment?: N/A Follow Up Appointment Has a follow up appointment been scheduled?: Yes Home Health Assistance Has the home health nurse contacted you since you've been home?: No OUTPATIENT DIETITIAN Interventions:: [place]ed agency ([place] [facility] due to [facility]. Referral faxed to [facility] [phone].) Survey - Recognition Do you have any other questions or concerns at this time?: No Future Appointments: [facility]2024-12-17 08:51:07 CM made follow up call to patient post-discharge. No answer and call went to voicemail. CM left a discreet message with purpose of call and CM's call back information. [place] [id number] 10:59:03 Respiratory Care Services Bronchodilator Treatment Plan Assessment DAILY ASSESSMENT Date: 04/18/24 I assessed, Tino Doss using the bronchodilator assessment tool and scored this patient at 7 with a triage number of 4, which has a bronchodilator treatment plan of TID & PRN. The next protocol scoring assessment will be in 24 hours. Please contact the respiratory seafood service team member at [phone] if you have any questions or concerns. BRONCHO SCORE SHEET 04/18/24 0812 Broncho Score Smoking History 3 Surgical History 0 CXR 0 Breath Sounds 2 Cough 0 Respiratory Condition 0 O2 2 Broncho Score 7 Broncho Interpretation 7 -- Triage 4 - Bronchodilator TID & PRN Joleen Chatman RRT ANA Chatman [facility]fs[facility]zl6080-22-70 09:56:29 Problem: Pain Goal: Control of pain at or below patient's documented comfort goal Outcome: Progressing as expected Goal: Reduction in pain sensation Outcome: Progressing as expected Problem: Discharge Planning Goal: Adequate for discharge Outcome: Progressing as expected Goal: Effective communication Outcome: Progressing as expected Problem: Falls, Risk of Goal: Absence of falls Outcome: Progressing as expected Problem: Respiratory Function - Impaired Goal: Able to cough effectively Outcome: Progressing as expected Goal: Adequate oxygenation Outcome: Progressing as expected Goal: Adequate work of breathing Outcome: Progressing as expected Goal: Patent airway Outcome: Progressing as expected ANA Obando [facility] CarolinaHioztb3244-11-21 00:48:41 Problem: Pain Goal: Control of pain at or below patient's documented comfort goal Outcome: Progressing as expected Goal: Reduction in pain sensation Outcome: Progressing as expected Problem: Discharge Planning Goal: Adequate for discharge Outcome: Progressing as expected Goal: Effective communication Outcome: Progressing as expected Problem: Falls, Risk of Goal: Absence of falls Outcome: Progressing as expected Problem: Respiratory Function - Impaired Goal: Able to cough effectively Outcome: Progressing as expected Goal: Adequate oxygenation Outcome: Progressing as expected Goal: Adequate work of breathing Outcome: Progressing as expected Goal: Patent airway Outcome: Progressing as expected [email or web address] Erica Mehta [facility] CarolinaFyvimp5921-48-09 14:02:24 Problem: Pain Goal: Control of pain at or below patient's documented comfort goal Outcome: Progressing as expected Goal: Reduction in pain sensation Outcome: Progressing as expected Problem: Discharge Planning Goal: Adequate for discharge Outcome: Progressing as expected Goal: Effective communication Outcome: Progressing as expected Problem: Falls, Risk of Goal: Absence of falls Outcome: Progressing as expected Problem: Respiratory Function - Impaired Goal: Able to cough effectively Outcome: Progressing as expected Goal: Adequate oxygenation Outcome: Progressing as expected Goal: Adequate work of breathing Outcome: Progressing as expected Goal: Patent airway Outcome: Progressing as expected [facility]2024-12-14 08:41:13 Respiratory Care Services Bronchodilator Treatment Plan Assessment INITIAL OR TITRATION Date: 04/17/24 I assessed, Tino Doss using the bronchodilator assessment tool and scored this patient at 7 with a triage number of 4, which has a bronchodilator treatment plan of TID & PRN. The next protocol scoring assessment will be in 24 hours. Please contact the respiratory seafood service team member at [phone] if you have any questions or concerns. BRONCHO SCORE SHEET 04/17/24 0837 Broncho Score Smoking History 3 (chronic COPD) Surgical History 0 CXR 0 Breath Sounds 2 Cough 0 Respiratory Condition 0 O2 2 Broncho Score 7 Broncho Interpretation 7 -- Triage 4 - Bronchodilator TID & PRN Problem list: Patient Active Problem List Diagnosis Pneumonia Multifocal pneumonia Obesity (BMI 30-39.9) Sepsis due to pneumonia GERMAN (acute kidney injury) RESPIRATORY HISTORY Smoking History: reports that she quit smoking about 24 years ago. Her smoking use included cigarettes. She started smoking about 56 years ago. She has a 48 pack-year smoking history. She has never used smokeless tobacco. Breath Sounds: diminished bilaterally Respiratory Rate: 18 Oxygen Requirements: 5L Respiratory Condition: normal wob Cough: strong, nonproductive Chest Imaging: XR CHEST 1 VW Result Date: 04/16/2024 EXAM: XR CHEST 1 VW HISTORY: 64 years-old Female with sob . TECHNIQUE: Single frontal view of the chest. COMPARISON: Chest radiograph from December 18, [address] from January 29, 2024 FINDINGS: Lines, tubes and devices: None. Lungs and pleura: The lungs are adequately expanded. No pleural effusion or pneumothorax is visualized. A 5 mm right upper lung zone focal opacity corresponds to region of scarring/nodularity on prior CT. Heart/Mediastinum: The cardiac silhouette appears normal accounting for technique and degree of inspiration. Bones and soft tissues: No acute fracture, aggressive osseous lesion, or dislocation. No soft tissue abnormality. No new focal consolidation, pneumothorax, or pleural effusion. Preliminary Report Dictated by Resident: Gisele Hall I, Daren Kiran MD., have reviewed this study and agree with the above report. Surgical History: Past Surgical History: Procedure Laterality Date HERNIA REPAIR SACROILIAC JOINT INJECTION Left 09/22/2017 Surgeon: Dutch Bennett MD; Location: [facility] [place] SPINE SURGERY lower back (Thoracic); hospital in [place], ~2015 TUBAL LIGATION Joleen Chatman RRT [facility] - [id number] 04:28:07 Problem: Pain Goal: Control of pain at or below patient's documented comfort goal Outcome: Progressing as expected Goal: Reduction in pain sensation Outcome: Progressing as expected Problem: Discharge Planning Goal: Adequate for discharge Outcome: Progressing as expected Goal: Effective communication Outcome: Progressing as expected Problem: Falls, Risk of Goal: Absence of falls Outcome: Progressing as expected Problem: Respiratory Function - Impaired Goal: Able to cough effectively Outcome: Progressing as expected Goal: Adequate oxygenation Outcome: Progressing as expected Goal: Adequate work of breathing Outcome: Progressing as expected Goal: Patent airway Outcome: Progressing as expected ANA Millan [facility] CarolinaKemcqc8006-40-21 16:33:19 Problem: Pain Goal: Control of pain at or below patient's documented comfort goal Outcome: Progressing as expected Goal: Reduction in pain sensation Outcome: Progressing as expected Problem: Discharge Planning Goal: Adequate for discharge Outcome: Progressing as expected Goal: Effective communication Outcome: Progressing as expected Problem: Falls, Risk of Goal: Absence of falls Outcome: Progressing as expected Problem: Respiratory Function - Impaired Goal: Able to cough effectively Outcome: Progressing as expected Goal: Adequate oxygenation Outcome: Progressing as expected Goal: Adequate work of breathing Outcome: Progressing as expected Goal: Patent airway Outcome: Progressing as expected ANA Bass [facility] CarolinaDvxivc2237-07-09 13:37:08 Report given to [facility] ems. ANA Castillo [facility] CarolinaBaywrd4776-51-44 12:52:36 Report given to Mary Bass RN. [facility]2024-12-13 12:37:50 Called [facility] ambulance @1237 ETA is 30min. ANA ChristensenMaria Parham HealthVuccgu8610-58-30 08:23:00 [facility] states: "Patient here for SOB since 3 months. States she was at her doctor's clinic yesterday, didn't get answers to her questions and so her anxiety just went up. Baseline home O2 is at 5LPM, we just put her on 3LPM and her sat's 97%." With home health caregiver at bedside. [facility] Doe [facility] - [id number] 08:21:00 Associated Order(s): EKG-12 Lead ROUTINE ONCE Pre-Procedure Diagnose(s): SOB (shortness of breath) Post-Procedure Diagnose(s): SOB (shortness of breath) [facility] Emergency Department Note Patient Name: Tino Doss Date of : 1960 64 year old female Treatment Room: MS3/MS3 Primary Care Physician: No primary care provider on file. Patient Escorted by: Self [9] Mode of Arrival: EMS - Central [45] EMS Treatment Prior to ED Arrival: Travel and Exposure Screening: Symptoms Does patient have any of these symptoms?: (not recorded) Exposure Screening Has patient had contact with someone with a communicable disease in the last month?: (not recorded) Diseases exposed to:: (not recorded) Is Patient ?: (not recorded) Exposure Date: (not recorded) Chief Complaint: Chief Complaint Patient presents with Shortness of Breath History of Present Illness: The patient presents at home with EMS for evaluation for shortness of breath and vomiting for the past 3 months when she was diagnosed and admitted several days for pneumonia. She does have a history of COPD and wears 5 L of oxygen at all times. No cough or congestion. No fevers. No sick contacts. 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 No chest pain or pressure. She has intermittent abdominal pain but none currently. No nausea or vomiting. No diarrhea. She has not yet taken her medications today. Here for evaluation. Past Medical History/Immunizations: Past Medical History: Diagnosis Date Anxiety Asthma COPD (chronic obstructive pulmonary disease) inhaler prn Depression Diabetes mellitus controlled Esophageal reflux controlled Hyperlipidemia Hypertension Stroke TIA 1992; [facility] Thyroid disease TIA (transient ischemic attack) 1992 no residual effects Tetanus received in last 5 years: Unknown Allergies: No Known Allergies Past Social History: Tobacco Use Former; Cigarettes: 1967 - 1999; Smoked an average of 1.5 packs/day for 32.0 years Smokeless Tobacco: Never used smokeless tobacco. Vaping Use Never used Alcohol Use No. Drug Use No. Sexual Activity Not sexually active. Past Surgical History: Past Surgical History: Procedure Laterality Date HERNIA REPAIR SACROILIAC JOINT INJECTION Left 09/22/2017 Surgeon: Dutch Bennett MD; Location: [facility] [place] [facility] SPINE SURGERY lower back (Thoracic); [facility], ~2015 TUBAL LIGATION Review of Systems: Review of Systems Constitutional: Negative for chills and fever. Respiratory: Positive for shortness of breath. Negative for cough. Cardiovascular: Negative for chest pain. Gastrointestinal: Negative for abdominal pain and vomiting. Genitourinary: Negative for dysuria. Musculoskeletal: Negative for arthralgias, neck pain and neck stiffness. Skin: Negative for wound. Neurological: Negative for dizziness. Psychiatric/Behavioral: Negative for agitation. Endocrine: Negative for goiter. Physical Exam: ED Triage Vitals [04/16/24 0827] Weight 88.5 kg (195 lb) Actual or estimated Estimated by patient/family report Height 1.702 m (5' 7") BP 102/76 Pulse 122 Resp 14 Temp 36.9 ?C (98.5 ?F) Temp source Oral SpO2 98 % Measured on Room air Physical Exam Vitals and nursing note reviewed. Constitutional: Appearance: Normal appearance. She is obese. HENT: Head: Normocephalic and atraumatic. Mouth/Throat: Mouth: Mucous membranes are dry. Cardiovascular: Rate and Rhythm: Normal rate and regular rhythm. Pulses: Normal pulses. Pulmonary: Effort: Pulmonary effort is normal. No respiratory distress. Breath sounds: No stridor. No wheezing or rhonchi. Abdominal: General: There is no distension. Palpations: Abdomen is soft. There is no mass. Tenderness: There is no abdominal tenderness. There is no guarding or rebound. Hernia: No hernia is present. Musculoskeletal: General: Normal range of motion. Cervical back: Normal range of motion and neck supple. Right lower leg: No edema. Left lower leg: No edema. Skin: General: Skin is warm and dry. Neurological: General: No focal deficit present. Mental Status: She is alert and oriented to person, place, and time. Radiology: XR CHEST 1 VW Final Result EXAM: XR CHEST 1 VW HISTORY: 64 years-old Female with sob . TECHNIQUE: Single frontal view of the chest. COMPARISON: Chest radiograph from December 18, [address] from January 29, 2024 FINDINGS: Lines, tubes and devices: None. Lungs and pleura: The lungs are adequately expanded. No pleural effusion or pneumothorax is visualized. A 5 mm right upper lung zone focal opacity corresponds to region of scarring/nodularity on prior CT. Heart/Mediastinum: The cardiac silhouette appears normal accounting for technique and degree of inspiration. Bones and soft tissues: No acute fracture, aggressive osseous lesion, or dislocation. No soft tissue abnormality. IMPRESSION No new focal consolidation, pneumothorax, or pleural effusion. Preliminary Report Dictated by Resident: Gisele Hall I, Daren Kiran MD., have reviewed this study and agree with the above report. Lab Results: Lab Results CBC WITH DIFF - Abnormal Result Value Ref Range WBC 14.47 (*) 4.30 - 11.10 10*3/?L RBC 4.08 3.93 - 5.25 10*6/?L HGB 11.8 11.6 - 15.0 g/dL HCT 37.5 35.7 - 45.2 % MCV 91.9 80.6 - 95.5 fL MCH 28.9 25.9 - 32.8 pg MCHC 31.5 (*) 31.6 - 35.1 g/dL RDW-SD 46.5 39.0 - 49.9 fL RDW-CV 13.7 12.0 - 15.5 % PLT 396 (*) 166 - 358 10*3/?L MPV 10.4 9.5 - 12.9 fL NRBC/100 WBC 0.0 0.0 - 10.0 /100 WBCs NRBC x103<0.01 10*3/?L GRAN MAT (NEUT) % 69.0 % IMM GRAN % 0.70 % LYMPH % 16.7 % MONO % 9.5 % EOS % 3.0 % BASO % 1.1 % GRAN MAT x103(ANC) 9.98 (*) 1.88 - 7.09 10*3/uL IMM GRAN x1030.10 (*) 0.00 - 0.06 10*3/uL LYMPH x1032.42 1.32 - 3.29 10*3/uL MONO x1031.38 (*) 0.33 - 0.92 10*3/uL EOS x1030.43 (*) 0.03 - 0.39 10*3/uL BASO x1030.16 (*) 0.01 - 0.07 10*3/uL COMP. METABOLIC PANEL (84023) - Abnormal NA 130 (*) 135 - 145 mmol/L K 2.5 (*) 3.5 - 5.0 mmol/L CL 77 (*) 98 - 108 mmol/L CO2 TOTAL 39 (*) 23 - 31 mmol/L AGAP 14 2 - 16 BUN 35 (*) 7 - 23 mg/dL GLUCOSE 216 (*) 70 - 110 mg/dL CREATININE 3.26 (*) 0.50 - 1.04 mg/dL TOTAL BILI 0.3 0.1 - 1.1 mg/dL CALCIUM 9.4 8.6 - 10.6 mg/dL T PROTEIN 7.3 6.3 - 8.2 g/dL ALBUMIN 4.2 3.5 - 5.0 g/dL ALK PHOS 75 34 - 122 U/L ALTv 21 5 - 35 U/L AST(SGOT) 22 13 - 40 U/L eGFR 15.1 mL/min/1.73m2 N-TERMINAL PRO-BNP - Abnormal NT-proBNP 227 <=125 pg/mL MAGNESIUM - Abnormal MAGNESIUM 1.2 (*) 1.7 - 2.4 mg/dL URINALYSIS - Abnormal APPEARANCE Cloudy (*) Clear COLOR Shima (*) Yellow PH 5.0 4.8 - 8.0 SP GRAVITY 1.026 1.003 - 1.030 GLU U QUAL Normal Normal BLOOD 1+ (*) Negative KETONES Negative Negative PROTEIN 500 mg/dL (*) Negative UROBILIN Normal Normal BILIRUBIN Negative Negative NITRITE Negative Negative LEUK JOHANNA Negative Negative RBC/HPF 5 (*) 0 - 3 HPF WBC/HPF 4 0 - 5 HPF BACTERIA Few (*) Negative MUCOUS Slight (*) Negative LPF SQ EPITH 19 HPF TRANS EPI 1 <=1 HPF TROPONIN I - Normal TROPONIN I 0.019 <=0.034 ng/mL EKG: If EKG completed, see Procedure Note. Orders and Treatments: Orders Placed This Encounter Procedures XR CHEST 1 VW CBC WITH DIFF COMP. METABOLIC PANEL (51042) TROPONIN I N-TERMINAL PRO-BNP Magnesium URINALYSIS NASAL CANNULA Orders Placed This Encounter Medications magnesium sulfate in water 2 gram/50 mL (4 %) infusion 2 g NaCl 0.9% (NS) bolus infusion 1,000 mL KCL (KLOR-CON M20) tablet 40 mEq NaCl 0.9% (NS) bolus infusion 1,000 mL potassium chloride in water 10 mEq/100 mL RTU 10 mEq First Provider Eval: ED Events Date/Time Event User Comments 04/16/24821 Medical Screening Begins ALEXANDRIA HENDRIX DO -- 04/16/24821 First Provider Evaluation ALEXANDRIA HENDRIX DO -- ED COURSE Diagnosis/Impression as of 04/16/24 1326 SOB (shortness of breath) Hypomagnesemia Hypokalemia GERMAN (acute kidney injury) Procedures: EKG-12 Lead ROUTINE ONCE Date/Time: 04/16/2024 11:56 AM Performed by: Alexandria Hendrix DO Authorized by: Alexandria Hendrix DO ECG interpreted by ED Physician in the absence of a trader fixed income: yes Interpretation: Interpretation: abnormal Rate: ECG rate assessment: tachycardic Rhythm: Rhythm: sinus tachycardia Ectopy: Ectopy: none QRS: QRS axis: Right QRS intervals: Normal QRS conduction: normal ST segments: ST segments: Normal T waves: T waves: normal Q waves: Abnormal Q-waves: not present MDM: Medical Decision Making The patient presents at home with EMS for evaluation for shortness of breath and vomiting for the past 3 months when she was diagnosed and admitted several days for pneumonia. She does have a history of COPD and wears 5 L of oxygen at all times. No cough or congestion. No fevers. No sick contacts. 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 No chest pain or pressure. She has intermittent abdominal pain but none currently. No nausea or vomiting. No diarrhea. She has not yet taken her medications today. Vital signs are stable in ER. Her lungs are clear bilaterally. Her heart is regular rhythm. Her abdomen is soft and nontender. She has no pitting edema to her bilateral legs. Will obtain a chest x-ray to evaluate for possible causes of her shortness of breath. Will check laboratory studies and obtain an EKG. Anticipate discharge home later. 1100 -the patient is doing well here in the ER. Her laboratory studies show an GERMAN with a creatinine of 3.26 where her priors are around 1.0. She also has hypokalemia with a potassium level of 2.5 and hypomagnesia with a level of 1.2. She was started on IV fluids here in the ER. She does require admission for continued management and there is currently no capacity at the [facility]. The transfer center has been notified. 1215 -spoke with Dr. Rangel with the internal medicine service and the patient was accepted for admission for continued management. She is pending transportation. Problems Addressed: GERMAN (acute kidney injury): acute illness or injury Hypokalemia: acute illness or injury Hypomagnesemia: acute illness or injury SOB (shortness of breath): acute illness or injury Amount and/or Complexity of Data Reviewed Independent Historian: EMS Labs: ordered. Decision-making details documented in ED Course. Radiology: ordered and independent interpretation performed. Decision-making details documented in ED Course. ECG/medicine tests: ordered and independent interpretation performed. Decision-making details documented in ED Course. Risk Prescription drug management. Decision regarding hospitalization. Flowsheet Documentation: Scoring Tools: No data recorded Disposition/Condition: ED Disposition ED Disposition Transfer - [facility] to IP/Obs Condition -- Comment -- Discharge Medications: Patient's Medications START taking these medications No medications on file CONTINUE taking these medications which have NOT CHANGED ALBUTEROL 90 MCG/ACTUATION INHALER INHALE 2 PUFFS BY MOUTH EVERY 6 HOURS NEEDED FOR WHEEZING OR SHORTNESS OF BREATH ANORO ELLIPTA 62.5-25 MCG/ACTUATION INHALATION DISK INHALE 1 PUFF BY MOUTH DAILY ASPIRIN 81 MG CHEWABLE TABLET Take 81 mg by mouth daily. BISOPROLOL 5 MG TABLET Take 1 tablet by mouth in the morning. BUPRENORPHINE-NALOXONE (SUBOXONE) 8-[address] 8 mg under the tongue 2 (two) times daily. CHOLECALCIFEROL, VITAMIN D3, 5,000 UNIT CAPSULE Take by mouth. LEVOTHYROXINE 150 MCG CAPSULE Take 150 mcg by mouth daily. LOSARTAN 50 MG TABLET TAKE 1 TABLET BY MOUTH IN THE MORNING AND IN THE EVENING MAGNESIUM OXIDE 500 MG TAB TAKE 1 TABLET BY MOUTH EVERY NIGHT METFORMIN 500 MG TABLET Take 500 mg by mouth daily. ROSUVASTATIN 10 MG TABLET Take 10 mg by mouth at bedtime. START taking Modified Medications as Prescribed No medications on file STOP taking these medications No medications on file Follow-up: Electronically signed by: Alexandria Hendrix DO 04/16/24 1327 [facility]2024-10-09 14:00:00 Images from the original note were not included. Venipuncture collection performed by clean technique on the right anticubitus. Total of 1 attempts were made. Slight pressure and a bandage/dressing were applied to the site(s). The patient experienced no complications. The following specimens were processed according to instructions and sent to [facility] laboratories per lab order on 02/11/2024 : LT BLUE SST 1 RED LAV 1 PPT DK GREEN (LiHep) DK GREEN (SodH) PADILLA DK BLUE (K2) DK BLUE (S) ACD Blood Culture NIPT/NTD [id number] 11:01:36 Problem: Falls, Risk of Goal: Absence of falls Outcome: Resolved Problem: Pain Goal: Control of pain at or below patient's documented comfort goal Outcome: Resolved Goal: Reduction in pain sensation Outcome: Resolved Problem: Venous Thromboembolism, (actual or risk of) Goal: Absence of venous thromboembolism (Risk) Outcome: Resolved Problem: Discharge Planning Goal: Adequate for discharge Outcome: Resolved Goal: Effective communication Outcome: Resolved Problem: Bleeding, Risk of Goal: Absence of impaired coagulation signs and symptoms Outcome: Resolved Goal: Absence of active bleeding Outcome: Resolved Problem: Skin integrity Impaired (Risk or Actual) Goal: Prevention of new skin breakdown Outcome: Resolved Problem: Respiratory Function - Impaired Goal: Able to cough effectively Outcome: Resolved Goal: Adequate oxygenation Outcome: Resolved Goal: Adequate work of breathing Outcome: Resolved Goal: Patent airway Outcome: Resolved Problem: Falls, Risk of Goal: Absence of falls Outcome: Resolved Katya Schwartz RNHeather Ville [id number] 22:09:17 Problem: Falls, Risk of Goal: Absence of falls Outcome: Progressing as expected Problem: Falls, Risk of Goal: Absence of falls Outcome: Progressing as expected Problem: Pain Goal: Control of pain at or below patient's documented comfort goal Outcome: Progressing as expected Goal: Reduction in pain sensation Outcome: Progressing as expected Problem: Venous Thromboembolism, (actual or risk of) Goal: Absence of venous thromboembolism (Risk) Outcome: Progressing as expected Problem: Discharge Planning Goal: Adequate for discharge Outcome: Progressing as expected Goal: Effective communication Outcome: Progressing as expected Problem: Bleeding, Risk of Goal: Absence of impaired coagulation signs and symptoms Outcome: Progressing as expected Goal: Absence of active bleeding Outcome: Progressing as expected Problem: Skin integrity Impaired (Risk or Actual) Goal: Prevention of new skin breakdown Outcome: Progressing as expected Problem: Respiratory Function - Impaired Goal: Able to cough effectively Outcome: Progressing as expected Goal: Adequate oxygenation Outcome: Progressing as expected Goal: Adequate work of breathing Outcome: Progressing as expected Goal: Patent airway Outcome: Progressing as expected Kale Hull RNUTMB - [id number] 17:31:20 Problem: Falls, Risk of Goal: Absence of falls Outcome: Progressing as expected Problem: Pain Goal: Control of pain at or below patient's documented comfort goal Outcome: Progressing as expected Goal: Reduction in pain sensation Outcome: Progressing as expected Problem: Venous Thromboembolism, (actual or risk of) Goal: Absence of venous thromboembolism (Risk) Outcome: Progressing as expected Problem: Discharge Planning Goal: Adequate for discharge Outcome: Progressing as expected Goal: Effective communication Outcome: Progressing as expected Problem: Bleeding, Risk of Goal: Absence of impaired coagulation signs and symptoms Outcome: Progressing as expected Goal: Absence of active bleeding Outcome: Progressing as expected Problem: Skin integrity Impaired (Risk or Actual) Goal: Prevention of new skin breakdown Outcome: Progressing as expected Problem: Respiratory Function - Impaired Goal: Able to cough effectively Outcome: Progressing as expected Goal: Adequate oxygenation Outcome: Progressing as expected Goal: Adequate work of breathing Outcome: Progressing as expected Goal: Patent airway Outcome: Progressing as expected Problem: Falls, Risk of Goal: Absence of falls Outcome: Progressing as expected Zeinab Marino [facility] - [id number] 10:45:47 Problem: Falls, Risk of Goal: Absence of falls Outcome: Progressing as expected Problem: Pain Goal: Control of pain at or below patient's documented comfort goal Outcome: Progressing as expected Goal: Reduction in pain sensation Outcome: Progressing as expected Problem: Venous Thromboembolism, (actual or risk of) Goal: Absence of venous thromboembolism (Risk) Outcome: Progressing as expected Problem: Discharge Planning Goal: Adequate for discharge Outcome: Progressing as expected Goal: Effective communication Outcome: Progressing as expected Problem: Bleeding, Risk of Goal: Absence of impaired coagulation signs and symptoms Outcome: Progressing as expected Goal: Absence of active bleeding Outcome: Progressing as expected Problem: Skin integrity Impaired (Risk or Actual) Goal: Prevention of new skin breakdown Outcome: Progressing as expected Problem: Respiratory Function - Impaired Goal: Able to cough effectively Outcome: Progressing as expected Goal: Adequate oxygenation Outcome: Progressing as expected Goal: Adequate work of breathing Outcome: Progressing as expected Goal: Patent airway Outcome: Progressing as expected [facility] - [id number] 20:47:26 Problem: Falls, Risk of Goal: Absence of falls Outcome: Progressing as expected Problem: Pain Goal: Control of pain at or below patient's documented comfort goal Outcome: Progressing as expected Goal: Reduction in pain sensation Outcome: Progressing as expected Problem: Venous Thromboembolism, (actual or risk of) Goal: Absence of venous thromboembolism (Risk) Outcome: Progressing as expected Problem: Discharge Planning Goal: Adequate for discharge Outcome: Progressing as expected Goal: Effective communication Outcome: Progressing as expected Problem: Bleeding, Risk of Goal: Absence of impaired coagulation signs and symptoms Outcome: Progressing as expected Goal: Absence of active bleeding Outcome: Progressing as expected Problem: Skin integrity Impaired (Risk or Actual) Goal: Prevention of new skin breakdown Outcome: Progressing as expected Problem: Respiratory Function - Impaired Goal: Able to cough effectively Outcome: Progressing as expected Goal: Adequate oxygenation Outcome: Progressing as expected Goal: Adequate work of breathing Outcome: Progressing as expected Goal: Patent airway Outcome: Progressing as expected Cierra Field [id number] 19:27:20 Patient admitted to IM for diagnosis of sepsis due to pneumonia, SOB, cough, hypokalemia, multifocal pneumonia, and hypotension Patient agrees to admission, discussed plan of care with patient and family. Patient is awake, alert, oriented, resp reg unlabored, color appropriate for race, PIV intact No adverse reaction to medications administered while in ED Belongings with patient to unit Report to SIMON Rojas Amina Mays [facility] [id number] 13:42:06 Came in via [facility] from home, ems report" she have fever started yesterday, with nausea, sob and diarrhea, she took her morning meds but no meds for fever, uses o2 at home 4lpm 25/11 for copd and chf" Able to verbalized name and birthday, rr even and non labored, maintain on o2 at 4lpm via nc Yisel York [facility] [id number] 13:38:00 AdmissionCare Guideline: Pneumonia - INPT, Inpatient Based on the indications selected for the patient, the bed status of Inpatient was determined to be MET The following indications were selected as present at the time of evaluation of the patient: - Clinical Indications for Admission to Inpatient Care - Admission is indicated for 1 or more of the following: - Heart rate greater than 100 beats per minute in adult or child age 6 years or older AdmissionCare documentation entered by: Paz Greene [facility], 28 edition, Copyright ? 2023 [facility] All Rights Reserved. [id number]:03-05:00 [id number] 12:33:54 Pt given printed and verbal discharge instructions regarding SOB, encouraged hydration. 0 Prescriptions provided. Pt verbalized understanding of instructions, pt awake alert oriented, resp reg unlabored, skin w/d, color appropriate for race, moves all ext well,pt encouraged to follow up with pcp and nephrology. Advised to seek medical attention for new/prolonged/worsening of symptoms, Symptoms improved. No adverse reaction to meds given in ER noted upon discharge. PIV d'cd, dressing to site, catheter in tact. Awake, alert oriented, resp reg unlabored, skin w/d, pt leaving via wheelchair, in no apparent distress. Carolyn Espinosa [facility] [id number] 08:42:23 Shortness of breath on exertion x4 days. Has COPD. Has PRN O2 for home use but feels like she "always needs it". Mireya Mendez [facility] [id number] 08:07:01 Refill request for Losartan , TOM 03/27/22 , no NOV scheduled Labs are within ambulatory guide lines Patient stated that she has changed trader fixed income , called to inform Pharmacy of changes [employer] Sheeba Arzate [facility] [id number] [facility] [id number] [place] [id number] PATIENT NAME: TINO DOSS ADMIT DATE: 10/19/22 ACCOUNT NO: [id number] ROOM NO: AGE: 62 REPORT TYPE: OPERATIVE REPORT SEX: F ADMITTING PHYSICIAN: ATTENDING PHYSICIAN: Matt Lester MD Cardiology OPERATION DATE: 10/19/2022 ENVIRONMENTAL JOURNALIST: Matt Lester MD PREOPERATIVE DIAGNOSES: POSTOPERATIVE DIAGNOSES: SR. PAYROLL MANAGER: TITLE OF PROCEDURE: Left heart catheterization. INDICATION FOR THE PROCEDURE: Dyspnea, coronary artery disease, history of cardiomyopathy, congestive heart failure. ESTIMATED BLOOD LOSS: Minimal. COMPLICATIONS: None. CONTRAST: 40 mL ANESTHESIA: Conscious sedation with Versed and fentanyl and 1% lidocaine for local anesthesia. FINAL DIAGNOSES: Mild nonobstructive coronary artery disease, normal ejection fraction, left ventricular end-diastolic pressure of 17, tortuous apical left anterior descending was small vessel. The recommendation is medical therapy. DESCRIPTION OF PROCEDURE: After informed consent, the patient was brought to the cardiac catheterization lab in a stable fasting nonsedated state. She was prepped and draped in the usual sterile fashion. After conscious sedation, 1% lidocaine was administered to the right common femoral artery area for local anesthesia. A 6-Amharic sheath was placed in the right common femoral artery using standard techniques and fluoroscopy. After heparinization, left coronary angiogram showed luminal irregularities, 20% plaques in the circumflex and the LAD. The apical LAD is small and tortuous, typical of diabetic vessels. Right coronary angiograms is a dominant vessel, 20% plaque proximal. Left ventricular end-diastolic pressure was 17, left ventricular ejection fraction was 60%. No wall motion abnormalities or aortic valve gradient. The right groin was sealed using Angio-Seal. There were no complications. The patient tolerated the procedure well. She was transferred back to the holding area for observation to be discharged in few hours on medical therapy and risk factor modification. PATIENT NAME: TINO DOSS Dictated By: Matt Lester MD Date Dictated: 10/19/2022 12:03:24 Date Transcribed: 10/19/2022 15:01:12 [facility] Receipt ID: [id number] Authenticated by Matt Lester MD On 10/20/2022 07:32:47 AM at 0732 PATIENT NAME: TINO DOSS 06:22:00 [id number] [address] PATIENT NAME: TINO DOSS ADMIT DATE: 10/19/22 ACCOUNT NO: [id number] ROOM NO: AGE: 62 REPORT TYPE: eELECTROCARDIOGRAM SEX: F ADMITTING PHYSICIAN: ATTENDING PHYSICIAN: Matt Lesetr MD Order: [id number] Test Reason : PRE PROCEDURE Test Date/Time Stamp: FriOct 19 2022 06:22:10 Blood Pressure : / mmHG Vent. Rate : 075 BPM Atrial Rate : 075 BPM P-R Int : 146 ms QRS Dur : 086 ms QT Int : 392 ms P-R-T Axes : 052 075 071 degrees QTc Int : 437 ms Sinus rhythm Otherwise normal ECG No previous ECGs available Confirmed by MATT LESTER ([id number]) on 10/19/2022 8:43:51 AM Referred By: Matt Lester Confirmed by:MATT LESTER at 0843 PATIENT NAME: TINO DOSS 07:11:00 [id number] [place] [address] PATIENT NAME: TINO DOSS ADMIT DATE: ACCOUNT NO: [id number] ROOM NO: AGE: 62 REPORT TYPE: HISTORY AND PHYSICAL SEX: F ADMITTING PHYSICIAN: ATTENDING PHYSICIAN: Matt Lester MD Cardiology PATIENT NAME: TINO DOSS ADMIT DATE:10/19/2022 ADMISSION DATE: 10/19/2022 09:30:00 ENVIRONMENTAL JOURNALIST: Matt Lester MD REASON FOR ADMISSION: Dyspnea, dilated cardiomyopathy, chronic systolic congestive heart failure, arrhythmias, abnormal nuclear stress test for cardiac catheterization and possible revascularization. HISTORY OF PRESENT ILLNESS: Tino is a 62-year-old new patient to my practice as of September 2022, who came in for cardiovascular evaluation with symptoms of dizziness and dyspnea. The patient had an echocardiogram that showed hypertensive changes. Nuclear stress test showed moderate size apical ischemia, ejection fraction 59%. Monitoring showed 36 paroxysmal atrial tachycardia runs, the longest being 34 beats as fast as 218 to 256 beats per minute. No definite fibrillation runs at that point. Given the patient's symptoms and the findings described, she is here for cardiac catheterization to assess for possible revascularization. The patient is new to my practice and from previous records she carries a diagnosis of TIA back in 1993. She carries a diagnosis of dilated cardiomyopathy and chronic congestive heart failure that is systolic, which I cannot find at this time. The patient has not been evaluated before for coronary artery disease as far as the records and the history goes, so she is here for left heart catheterization to assess her coronaries and to assess for possible revascularization. The patient denies any chest pains, but she has significant dyspnea. PAST MEDICAL HISTORY: As per above in addition to hypertension, hyperlipidemia, TIA as mentioned above, COPD, diabetes, osteoarthritis, lumbar disk disease, anxiety and depression. PAST SURGICAL HISTORY: Remarkable for hernia repair in 2016, spinal surgery in 2017, tubal ligation in 1985. ALLERGIES: NO KNOWN DRUG ALLERGIES. MEDICATIONS: She is currently on aspirin 325 mg daily, furosemide 40 mg daily, famotidine 40 mg daily, Albuterol 90 mcg as needed inhaler, stool softener, losartan 50 mg daily, rosuvastatin 10 mg daily, metformin 500 mg daily on hold and bisoprolol 10 mg daily, prednisone 10 mg daily. SOCIAL HISTORY: There is no history of any recent smoking. There is no history of alcohol or street drug use. PATIENT NAME: TINO DOSS FAMILY HISTORY: Positive for atherosclerotic cardiovascular disease, but at an older age. REVIEW OF SYSTEMS: Remarkable for the above. The details are enclosed in the chart. She does have floaters, dizziness, anxiety, depression, arthritis, back problems. Detailed review of systems is enclosed. PHYSICAL EXAMINATION: GENERAL: Reveals a pleasant 62-year-old lady in no acute distress. VITAL SIGNS: Blood pressure 135/84, pulse 78 and regular, respiratory rate 16 and unlabored, temperature afebrile. HEENT: Head atraumatic, normocephalic. Eyes and ENT examination within normal for age. NECK: Supple. No jugular venous distention, bruits or lymphadenopathy. Normal upstroke. LUNGS: Clear and resonant. Diminished breath sounds at the bases. HEART: Regular rate and rhythm. No murmurs or gallops. ABDOMEN: Soft, no tenderness, no organomegaly, no masses or bruits. EXTREMITIES: 2+ distal pulses. No edema, cyanosis or clubbing. NEUROLOGIC: Alert and oriented x3. Examination appears to be nonfocal. LABORATORY DATA: Pending. Noninvasive cardiovascular workup is enclosed. IMPRESSION: This is a 62-year-old patient who carries a diagnosis of dilated cardiomyopathy and chronic systolic congestive heart failure from previous evaluation. She has at this time dyspnea, ischemia, and paroxysmal atrial tachycardia runs that are all symptomatic. The patient appears to have significant coronary artery disease. Her coronary status needs to be evaluated. PLAN: The recommendation is to proceed with left heart catheterization and possible revascularization. Risks and benefits of the planned procedures were discussed in detail with the patient and available family members, and she is willing to proceed. Rest as per orders. Dictated By: Matt Lester MD Date Dictated: 10/18/2022 07:11:14 Date Transcribed: 10/18/2022 09:13:52 [facility] Receipt ID: [id number] Authenticated and Edited by Matt Lester MD On 10/18/22 4:31:18 PM at 0433 PATIENT NAME: TINO DOSS
[2025-02-09] MEDS ORDERED: IPRATROPIUM BROM 0.5MG/2.5ML ONE (15:16)
[2025-02-09] MEDS ORDERED: Magnesium Sulfate 2gm IVPB 2 G/50 ML BAG IV ONE (15:17)
[2025-02-09] MEDS ORDERED: LEVALBUTEROL 1.25 MG/3 ML NEB ONE (15:17)
[2025-02-09 15:35] LABS: Absolute Lymphocytes (CBC) 2.1 K/uL (0.7-4.9); Hematocrit 36.8 % (36.0-45.0); Hemoglobin 12.0 g/dL (12.0-15.0); MCH 30.7 pg (27.0-35.0); MCHC 32.7 g/dL (32.0-36.0); MCV 93.8 fL (80-100); MPV 8.2 fL (7.6-11.3); Nucleated RBC Absolute Count 0.0 (0-0); Nucleated Red Blood Cells % 0.0 % (0-0); RBC Red Blood Cell Count 3.92 M/uL (3.86-4.86); White Blood Count 14.70 thou/uL (4.3-10.9)
[2025-02-09] MEDS ORDERED: LORAZEPAM 0.5 MG TABLET ONE (15:39)
[2025-02-09 15:41] LABS: Blood O2 Saturation 99.7 % (92.0-98.5)
[2025-02-09 15:42] LABS: Blood Gas Oxyhemoglobin 96.3 % (94.0-97.0); PT Prothrombin Time 12.5 SECONDS (10-13.0); Protime INR 1.11
[2025-02-09 15:43] LABS: Arterial Blood Carboxyhemoglob 2.5 % (0.0-1.5)
[2025-02-09 15:51] LABS: Influenza A Ag Negative; Influenza B Ag Negative; SARS-CoV-2 Antigen Rapid Res Negative (Negative)
[2025-02-09 15:55] LABS: ALT/SGPT 28 U/L (13-56); AST/SGOT 19 U/L (15-37); Albumin 4.1 g/dL (3.4-5.0); Albumin/Globulin Ratio 1.1 (1.1-1.8); Alkaline Phosphatase 67 U/L (45-117); Anion Gap 8.4 mEq/L (5.0-15.0); BUN Blood Urea Nitrogen 32 mg/dL (7-18); Globulin 3.8 g/dL (2.3-3.5); Glucose Level 175 mg/dL (74-106); Magnesium 1.7 mg/dL (1.6-2.4); NT PRO-BNP 57 pg/mL (<125); Potassium 3.4 mEq/L (3.5-5.1); Troponin High Sensitivity 12.1 pg/mL (<58.9)
[2025-02-09 16:09] LABS: Bilirubin Indirect, Calculated 0.0 mg/dL (0.2-0.8)
[2025-02-09] MEDS ORDERED: POTASSIUM 25 MEQ EFFERV TAB ONE (16:59)
--- NOTE | 2025-02-09 17:15 | RAD REPORT ---
EXAM: Chest Single View HISTORY: 65 years Female SOB COMPARISON: 12/10/2023 FINDINGS: LUNGS/PLEURA: The lungs are clear. No pleural effusions or pneumothorax. No pulmonary edema. CARDIAC/MEDIASTINUM: The cardiac silhouette is within normal limits. UPPER ABDOMEN: No significant abnormality. BONES: No acute abnormality. LINES/TUBES/OTHER: N/A IMPRESSION: No evidence of acute cardiopulmonary disease.
--- NOTE | 2025-02-09 18:21 | ER ---
Nurse's Notes [facility] Name: Glenna Doss Age: 65 yrs Sex: Female : 1960 Arrival Date: 02/09/2025 Time: 14:55 Bed 14 Private MD: Diagnosis: COPD/ Chronic obstructive pulmonary disease with (acute) exacerbation;Respiratory failure, unspecified with hypercapnia Presentation: 02/09 14:56 Chief complaint: EMS states: SOB x1 D. Coronavirus screen: At this time, the client bp does not indicate any symptoms associated with coronavirus-19. Ebola Screen: No symptoms or risks identified at this time. Initial Sepsis Screen: Does the patient meet any 2 criteria? HR > 90 bpm. No. Patient's initial sepsis screen is negative. Does the patient have a suspected source of infection? No. Patient's initial sepsis screen is negative. Risk Assessment: Do you want to hurt yourself or someone else? Patient reports no desire to harm self or others. Onset of symptoms is unknown. Care prior to arrival: IV initiated. 20 GA, in the left antecubital area. 14:56 Method Of Arrival: [facility] bp 14:56 Acuity: COLE 3 bp Triage Assessment: 14:57 General: Appears in no apparent distress. obese, Behavior is cooperative, appropriate bp for age, anxious. Pain: Denies pain. EENT: No deficits noted. Neuro: No deficits noted. Cardiovascular: Rhythm is sinus tachycardia. Respiratory: Reports shortness of breath Breath sounds with wheezes Onset: The symptoms/episode began/occurred yesterday, the patient has mild shortness of breath. GI: No signs and/or symptoms were reported involving the gastrointestinal system. : No signs and/or symptoms were reported regarding the genitourinary system. Derm: No deficits noted. Musculoskeletal: No deficits noted. Historical: - Allergies: 14:57 No Known Allergies; bp - PMHx: 14:57 COPD; bp - Immunization history:: Adult Immunizations up to date. - Infectious Disease History:: Denies. - Social history:: Smoking status: Patient/guardian denies using tobacco. Assessment: 16:06 Reassessment: Patient appears in no apparent distress at this time. Patient states bp symptoms have improved. Cardiovascular: Rhythm is sinus rhythm. Respiratory: Airway is patent Respiratory effort is even. 17:45 Reassessment: Patient appears in no apparent distress at this time. Patient states bp symptoms have improved. Vital Signs: 14:56 BP 149 / 86; Pulse 115; Resp 24; Temp 98; Pulse Ox 95% on 4 lpm NC; bp 16:06 BP 99 / 67; Pulse 100; Resp 20; Pulse Ox 97% ; bp 17:30 BP 137 / 90; Pulse 99; Resp 11; Pulse Ox 97% ; bp 19:20 BP 142 / 93; Pulse 102; Resp 13; Pulse Ox 98% on 4 lpm NC; jb4 ED Course: 14:56 Patient arrived in ED. bp 14:56 Juan Du PA-C is PHCP. cp 14:56 Fredy Kim DO is Attending Physician. cp 14:57 Triage completed. bp 14:57 Arm band placed on. bp 15:01 Ashish Marks, SIMON is Primary Nurse. bp 15:38 EKG done, by ED staff, reviewed by Juan Du PA-C. rk3 15:40 Initial lab(s) drawn, by me, sent to lab. Maintain EMS IV. Dressing intact. Good blood bp return noted. Site clean \T\ dry. Gauge \T\ site: 20 LAC. 17:14 XRAY Chest (1 view) In Process Unspecified. EDMS 18:18 Heriberto Gallagher MD is Hospitalizing Provider. cp Administered Medications: 15:06 CANCELLED (Physician Discretion): lorazepam1 mg PO once cp 15:15 Drug: LORazepam PO 0.5 mg PO once Route: PO; bp 15:34 Drug: Magnesium Sulfate IVPB 1 grams IVPB once over 30 mins Route: IVPB; Infused Over: bp 30 mins; Site: left antecubital; 15:35 Drug: Levalbuterol Inhalation 1.25 mg Inhalation once Route: Inhalation; bp 15:35 Drug: Ipratropium Inhalation Aerosol 0.5 mg Inhalation once Route: Inhalation; bp 16:35 Not Given (Physician Discretion): ns 0.9% 1000 ml 500 ml IV at 1 bolus once; to be cp given as a bolus over 90 minutes 16:45 Drug: Potassium PO Effervescent Tablet 25 mEq PO once; dissolve in 4 ounces of water or bp juice Route: PO; Outcome: 18:20 Decision to Hospitalize by Provider. cp 19:55 Patient left the ED. vc1 Signatures: Dispatcher [employer] EDMS Juan Du PA-C PA-C cp Bryson, James RN RN jb4 Ashish Marks RN RN bp Asia James RN RN vc1 Teresa Santana rk3
--- NOTE | 2025-02-09 18:21 | EDPHYS ---
Physician Documentation [facility] Name: Glenna Doss Age: 65 yrs Sex: Female : 1960 Arrival Date: 02/09/2025 Time: 14:55 Bed 14 Private MD: ED Physician Fredy Kim HPI: 02/09 15:05 This 65 yrs old Female presents to ER via EMS with complaints of Shortness Of Breath. cp 15:05 The patient has shortness of breath at rest. Onset: The symptoms/episode began/occurred cp yesterday, and became worse today. 15:05 Duration: The symptoms are continuous, and are steadily getting worse. Associated signs cp and symptoms: Pertinent positives: non-productive cough, Pertinent negatives: chest pain, fever, hemoptysis, vomiting. Severity of symptoms: in the emergency department the symptoms are unchanged despite EMS interventions. Historical: - Allergies: 14:57 No Known Allergies; bp - PMHx: 14:57 COPD; bp - Immunization history:: Adult Immunizations up to date. - Infectious Disease History:: Denies. - Social history:: Smoking status: Patient/guardian denies using tobacco. ROS: 15:10 Constitutional: Negative for body aches, chills, fever, poor PO intake, cp 15:10 Eyes: Negative for injury, pain, redness, and discharge, cp 15:10 ENT: Negative for drainage from ear(s), ear pain, sore throat, difficulty swallowing, difficulty handling secretions, 15:10 Cardiovascular: Negative for chest pain, edema, palpitations, 15:10 Respiratory: Positive for cough, with no reported sputum, shortness of breath, wheezing, 15:10 Abdomen/GI: Negative for abdominal pain, vomiting, diarrhea, constipation, 15:10 Neuro: Negative for altered mental status, dizziness, headache, syncope, weakness, 15:10 All other systems are negative, Exam: 15:15 Constitutional: The patient appears in no acute distress, alert, awake, cp non-diaphoretic, non-toxic, well developed, well nourished, anxious, 15:15 Head/Face: Normocephalic, atraumatic. cp 15:15 Eyes: Periorbital structures: appear normal, Conjunctiva: normal, no exudate, no injection, Sclera: no appreciated abnormality, Lids and lashes: appear normal, bilaterally, 15:15 ENT: External ear(s): are unremarkable, Nose: is normal, Mouth: Lips: moist, Oral mucosa: moist, Posterior pharynx: Airway: no evidence of obstruction, patent, 15:15 Chest/axilla: Inspection: normal, Palpation: is normal, no crepitus, no tenderness, cp 15:15 Cardiovascular: Rate: tachycardic, Rhythm: regular, Edema: is not appreciated, JVD: is not appreciated, 15:15 Respiratory: mild respiratory distress is noted, Respirations: labored breathing, that cp is moderate, Breath sounds: decreased breath sounds, that are moderate, stridor, is not appreciated, wheezing: that is mild, is heard diffusely, 15:15 Abdomen/GI: Inspection: abdomen appears normal, Palpation: abdomen is soft and non-tender, in all quadrants, 15:15 Back: pain, is absent, ROM is normal, cp 15:15 Skin: cellulitis, is not appreciated, no rash present. 15:15 Neuro: Orientation: to person, place \T\ time. Mentation: is normal, Motor: moves all fours, strength is normal, Sensation: is normal, 15:40 ECG was reviewed by the Attending Physician. Vital Signs: 14:56 BP 149 / 86; Pulse 115; Resp 24; Temp 98; Pulse Ox 95% on 4 lpm NC; bp 16:06 BP 99 / 67; Pulse 100; Resp 20; Pulse Ox 97% ; bp 17:30 BP 137 / 90; Pulse 99; Resp 11; Pulse Ox 97% ; bp 19:20 BP 142 / 93; Pulse 102; Resp 13; Pulse Ox 98% on 4 lpm NC; jb4 MDM: 14:56 Medical Screening Exam initiated 17:45 Data reviewed: vital signs, nurses notes, lab test result(s), EKG, radiologic studies, cp plain films, and as a result, I will admit patient. 17:45 I considered the following discharge prescriptions or medication management in the emergency department Medications were administered in the Emergency Department. See MAR. Independent interpretation of the following test(s) in the Emergency Department EKG: See my EKG interpretation above X-Ray: My interpretation is chest xray negative for focal pneumonia. Care significantly affected by the following chronic conditions: Chronic Obstructive Pulmonary Disease. Counseling: I had a detailed discussion with the patient and/or guardian regarding the historical points, exam findings, and any diagnostic results supporting the discharge/admit diagnosis, lab results, radiology results, the need for further work-up and treatment in the hospital. Response to treatment: the patient's symptoms have mildly improved after treatment. 02/09 14:59 Order name: Basic Metabolic Panel; Complete Time: 16:12 cp 02/09 16:12 Interpretation: Normal except: NA 135; K 3.4; GLUC 175; BUN 32; CRE 1.15; GFR 52. cp 02/09 14:59 Order name: CBC with Diff; Complete Time: 16:12 cp 02/09 16:12 Interpretation: Normal except: WBC 14.70; JULIA% 77.1; LYM% 14.3; NEUT A 11.3. cp 02/09 14:59 Order name: LFT's; Complete Time: 16:12 cp 02/09 14:59 Order name: Magnesium; Complete Time: 16:12 cp 02/09 14:59 Order name: NT PRO-BNP; Complete Time: 16:12 cp 02/09 14:59 Order name: PT-INR; Complete Time: 16:12 cp 02/09 14:59 Order name: Troponin HS; Complete Time: 16:12 cp 02/09 14:59 Order name: COVID-19 Ag + Flu A+B Ag; Complete Time: 16:12 cp 02/09 14:59 Order name: ABG; Complete Time: 16:12 cp 02/09 16:20 Order name: D-Dimer; Complete Time: 17:35 cp 02/09 18:58 Order name: CBC with Automated Diff EDMS 02/09 18:58 Order name: CBC with Automated Diff EDMS 02/09 18:58 Order name: Comprehensive Metabolic Panel EDMS 02/09 18:58 Order name: Comprehensive Metabolic Panel EDMS 02/09 14:59 Order name: XRAY Chest (1 view); Complete Time: 17:25 cp 02/09 14:59 Order name: Cardiac monitoring; Complete Time: 15:01 cp 02/09 14:59 Order name: EKG - Nurse/Tech; Complete Time: 15:35 cp 02/09 14:59 Order name: IV Saline Lock; Complete Time: 15:01 cp 02/09 14:59 Order name: Labs collected and sent; Complete Time: 15:35 cp 02/09 14:59 Order name: O2 Per Protocol; Complete Time: 15:01 cp 02/09 14:59 Order name: O2 Sat Monitoring; Complete Time: 15: cp EC:40 Rate is 119 beats/min. Rhythm is regular. [place] interval is normal. QRS interval is cp normal. QT interval is normal. T waves are Inverted in lead aVR. Interpreted by me. Reviewed by me. Administered Medications: 15:06 CANCELLED (Physician Discretion): lorazepam1 mg PO once cp 15:15 Drug: LORazepam PO 0.5 mg PO once Route: PO; bp 15:34 Drug: Magnesium Sulfate IVPB 1 grams IVPB once over 30 mins Route: IVPB; Infused Over: bp 30 mins; Site: left antecubital; 15:35 Drug: Levalbuterol Inhalation 1.25 mg Inhalation once Route: Inhalation; bp 15:35 Drug: Ipratropium Inhalation Aerosol 0.5 mg Inhalation once Route: Inhalation; bp 16:35 Not Given (Physician Discretion): ns 0.9% 1000 ml 500 ml IV at 1 bolus once; to be cp given as a bolus over 90 minutes 16:45 Drug: Potassium PO Effervescent Tablet 25 mEq PO once; dissolve in 4 ounces of water or bp juice Route: PO; Disposition: 16:03 I was immediately available on-site in the Emergency Department for consultation in the ms3 care of the patient. Disposition Summary: 02/09/25 18:20 Hospitalization Ordered Notes: Hospitalization Status: Inpatient Admission cp Provider: Heriberto Gallagher cp Location: Telemetry/MedSurg (Inpatient) cp Condition: Fair cp Problem: an acute exacerbation cp Symptoms: have improved cp Bed/Room Type: Standard cp Room Assignment: 412(02/09/25 19:20) kmf Diagnosis - COPD/ Chronic obstructive pulmonary disease with (acute) exacerbation cp - Respiratory failure, unspecified with hypercapnia cp Forms: - Medication Reconciliation Form cp - SBAR form cp - Leadership Thank You Letter cp Signatures: Dispatcher RalphHost Juan Andrews PA-C PA-C cp Peltier, Brian, RN RN Fredy Lambert DO DO ms3 Marifer Velas[facility] Corrections: (The following items were deleted from the chart) 15:00 15:00 BASIC METABOLIC PANEL+C.LAB.BRZ ordered. EDMS EDMS 15:00 15:00 CBC+H.LAB.BRZ ordered. EDMS EDMS 15:00 15:00 HEPATIC FUNCTION+C.LAB.BRZ ordered. EDMS EDMS 15:00 15:00 MAGNESIUM+C.LAB.BRZ ordered. EDMS EDMS 15:00 15:00 PROBNP+C.LAB.BRZ ordered. EDMS EDMS 15:00 15:00 PROTIME (+INR)+COAG.LAB.BRZ ordered. EDMS EDMS 15:00 15:00 Troponin High Sensitivity+C.LAB.BRZ ordered. EDMS EDMS 15:00 15:00 COVID-19 Ag + Flu A+B Ag+I.LAB.BRZ ordered. EDMS EDMS 15:00 15:00 Chest Single View+RAD.RAD.BRZ ordered. EDMS EDMS 15:00 15:00 Arterial Blood Gas+RC.LAB.BRZ ordered. EDMS EDMS 15:06 15:06 LORazepam PO 1 mg PO once ordered. cp cp 19:20 18:20 cp kmf 02/10 17:07 02/09 15:05 Onset: The symptoms/episode began/occurred 1 day(s) ago, cp cp
[2025-02-09] MEDS ORDERED: ACETAMINOPHEN 325 MG TABLET PO PRN (18:53)
[2025-02-09] MEDS ORDERED: ONDANSETRON 4 MG/2 ML VIAL IV PRN (18:53)
--- NOTE | 2025-02-09 18:53 | P.HP ---
Certification for Inpatient Patient admitted to: Inpatient With expected LOS: >2 Midnights Practitioner: I am a practitioner with admitting privileges, knowledge of patient current condition, hospital course, and medical plan of care. Services: Services provided to patient in accordance with Admission requirements found in Title 42 Section 412.3 of the Code of Federal Regulations Patient History Date of Service: 02/09/25 Reason for admission: SOB History of Present Illness: 65 yrs old Female with past medical history of COPD, CHF, diabetes, hypertension who was brought to ER with with difficulty. Started 2 to 3 days ago and has been progressively getting worse. Denies any fever or chills. No nausea vomiting or diarrhea. Denies any chest pain Associated with cough with mucoid expectoration. No sick contacts. Patient was assessed in the ER and was admitted for further management of COPD exacerbation Allergies No Known Allergies Allergy (Unverified 07/19/22 22:48) Home medications list reviewed: Yes Home Medications: Albuterol Inhaler [Ventolin Inhaler*] 2 puff IH TID PRN 07/20/22 Buprenorphine HCl/Naloxone HCl [Buprenorphine-Nalox 8-2Mg Film] 1 film SL BID 07/20/22 Divalproex Sodium 200 mg PO DAILY 07/20/22 Famotidine 40 mg PO DAILY AFTER SUPPER 07/20/22 Levothyroxine Sodium 150 mcg PO DAILY 07/20/22 Losartan Potassium 5 mg PO BID 07/20/22 Metformin HCl [Glucophage*] 500 mg PO DAILY 07/20/22 Rosuvastatin [Crestor*] 40 mg PO DAILY 07/20/22 Umeclidinium Brm/Vilanterol Tr [Anoro Ellipta 62.5-25 Mcg INH] 1 puff IH DAILY 07/20/22 Venlafaxine HCl [Venlafaxine HCl ER] 150 mg PO DAILY 07/20/22 bisoproloL fumarate [Zebeta*] 5 mg PO DAILY AFTER SUPPER 07/20/22 Benzonatate [Tessalon Perle*] 100 mg PO TID PRN #60 cap 07/24/22 Levothyroxine [Synthroid*] 0.15 mg PO DAILYAC #60 tab 07/24/22 Potassium Phos,N-Ebnnf-I-Basic [Wtsrfr-Kiko-Q] 1 each PO DAILY #30 packet 07/24/22 Arformoterol Tartrate 15 mcg BID 10/08/25 Aspirin 81 mg PO DAILY 02/09/25 Furosemide [Lasix] 20 mg PO TID 02/09/25 Omeprazole 20 mg PO DAILY 02/09/25 Revefenacin [Yupelri] 175 mcg BID 02/09/25 Spironolactone [Aldactone] 25 mg PO DAILY 02/09/25 Zolpidem Tartrate [Ambien] 10 mg PO BEDTIME 02/09/25 predniSONE [Prednisone*] 10 mg PO DAILY 02/09/25 - Past Medical/Surgical History Diabetic: Yes Past Medical History: Reviewed- Non-Contributory -: Diabetes mellitus type [id number] -: COPD on home O2 -: Hypertension -: Hyperlipidemia -: CHFunknown EF -: Hypothyroidism Past Surgical History: Reviewed- Non-Contributory -: Tubal ligation -: Hernia repair -: Back surgery Psychosocial/ Personal History: Lives at home, alone - Family History Mother -: Cancer Father -: Cancer Brother -: Diabetes - Social History Smoking Status: Former smoker Alcohol use: No CD- Drugs: No Caffeine use: Yes Review of Systems 10-point ROS is otherwise unremarkable Physical Examination - Vital Signs Temperature: 98.2 F Blood Pressure: 149/86 Pulse: 115 Respirations: 18 Pulse Ox (%): 94 - Physical Exam General: Alert, Oriented x3, Mild distress HEENT: Atraumatic, Normocephalic Neck: Supple Respiratory: Diminished, Crackles/rales, Expiratory wheezes Cardiovascular: Regular rate/rhythm, Normal S1 S2 Capillary refill: <2 Seconds Gastrointestinal: Soft and benign, W/out hepatosplenomegaly Musculoskeletal: No clubbing Integumentary: No rashes Neurological: Other (Alert awake nonfocal) Lymphatics: No axilla or inguinal lymphadenopathy - Studies Laboratory Data (last 24 hrs) 02/09/25 02/09/25 02/09/25 15:26 15:26 15:26 WBC 14.70 H Hgb 12.0 Hct 36.8 Plt Count 361 PT 12.5 INR 1.11 Sodium 135 L Potassium 3.4 L BUN 32 H Creatinine 1.15 H Glucose 175 H Magnesium 1.7 Total Bilirubin 0.2 AST 19 ALT 28 Alkaline Phosphatase 67 Assessment and Plan - Plan COPD exacerbation Monitor closely on telemetry Started on bronchodilators Oxygen supplementation Steroids added Chest x-ray findings noted Pulmonology consult if not better in the a.m. Acute on chronic hypoxic respiratory failure secondary to COPD with exacerbation Oxygen supplementation Will try to wean down oxygen requirement Continue bronchodilators Hypertension Antihypertensives titrated Continue home medications and titrate as needed Hyperlipidemia Continue statin Diabetes Insulin sliding scale Accu-Chek before every meal and at bedtime Hypokalemia Hyponatremia Monitor closely on telemetry Electrolytes monitored and replaced GI/DVT prophylaxis Advanced directive full code Discharge Plan: Home Plan to discharge in: 48 Hours - Advance Directives Does patient have a Living Will: No Does patient have a Durable POA for Healthcare: No - Code Status/Comfort Care Code Status: Full Code Time Spent Managing Pts Care (In Minutes): 48
[2025-02-09] MEDS: IPRATROPIUM BROM 0.5MG/2.5ML NEB SCH (20:15)
[2025-02-09] MEDS: ALBUTEROL 2.5 MG/3 ML NEB SOL NEB SCH (20:15)
[2025-02-09 21:13] VITALS: BMI 32.3
[2025-02-09] MEDS: ZOLPIDEM TARTRATE 10 MG TABLET PO ONE (21:18)
[2025-02-09] MEDS ORDERED: HYDROCODONE/APAP 5/325 MG TAB PO PRN (22:23)
[2025-02-10] MEDS: METHYLPREDNISOLONE 125 MG INJ IV SCH (00:34)
[2025-02-10 05:39] LABS: Absolute Lymphocytes (CBC) 1.9 K/uL (0.7-4.9); Hematocrit 32.1 % (36.0-45.0); Hemoglobin 10.7 g/dL (12.0-15.0); MCH 31.2 pg (27.0-35.0); MCHC 33.4 g/dL (32.0-36.0); MCV 93.6 fL (80-100); MPV 7.9 fL (7.6-11.3); Nucleated RBC Absolute Count 0.0 (0-0); Nucleated Red Blood Cells % 0.0 % (0-0); RBC Red Blood Cell Count 3.43 M/uL (3.86-4.86); White Blood Count 8.80 thou/uL (4.3-10.9)
[2025-02-10 05:57] LABS: ALT/SGPT 23.0 U/L (13-56); AST/SGOT 16.0 U/L (15-37); Albumin 3.5 g/dL (3.4-5.0); Albumin/Globulin Ratio 1.1 (1.1-1.8); Alkaline Phosphatase 57.0 U/L (45-117); Anion Gap 7.4 mEq/L (5.0-15.0); BUN Blood Urea Nitrogen 22.0 mg/dL (7-18); Globulin 3.3 g/dL (2.3-3.5); Glucose Level 147.0 mg/dL (74-106); Potassium 3.4 mEq/L (3.5-5.1)
[2025-02-10] MEDS ORDERED: PNEUMOCOCCAL VACCINE 0.5 ML IMVAC ONE (08:00)
[2025-02-10] MEDS ORDERED: INFLUENZA VACCINE (for 6+ mo) 0.5 ML DOSE IMVAC ONE (08:00)
[2025-02-10] MEDS: POTASSIUM CL SA 10 MEQ TAB PO ONE (09:14)
[2025-02-10] MEDS: ENOXAPARIN 40 MG/0.4 ML SQ SCH (09:15)
--- NOTE | 2025-02-10 11:16 | P.PN ---
Date of Service: 02/10/25 Subjective: still wheezing and dyspneic but feels slightly better compared to yesterday no overnight events afebrile Physical Exam: Gen: Alert, Oriented, NAD CV: Sinus Tachycardia HR 100-110s, no edema Pulm: Nonlabored respirations on 4L NC, wheeze Abdomen: Soft, nontender, nondistended Neuro: Normal strength, normal affect Problem List: Acute on chronic hypoxic respiratory failure secondary to acute on chronic COPD exacerbation Hypokalemia Hyponatremia, resolved Hypertension Hyperlipidemia NIDDM2 Acute on chronic hypoxic respiratory failure secondary to acute on chronic COPD exacerbation (on 4L NC at home) on admission, presents with worsening shortness of breath. CXR negative. ABG on admission with mildly elevated PCO2, HCO3 ~baseline O2 settings. Uses ~4L NC at home per notes. Duonebs, home inhalers Pulm consulted deescalate IV steroids to PO prednisone added oral Augmentin Hypokalemia Hyponatremia, resolved monitor and replete as needed telemetry Hypertension Hyperlipidemia NIDDM2 confirm home meds, restart as appropriate accu-cheks, SSI VTE: Lovenox Code: Full Dispo: Home, ~1-2 days Pending improvement of dyspnea/wheeze
[2025-02-10] MEDS: ARFORMOTEROL TARTRATE 15 MCG/2 ML VIAL.NEB NEB SCH (12:14)
--- NOTE | 2025-02-10 12:14 | P.CNS ---
Date of Consult: 02/10/25 Reason for Consult: Shortness of breath Chief Complaint: SOB History of Present Illness: Patient is 65 years of age with a history of COPD admitted with worsening dyspnea happened acutely has some cough and congestion otherwise compliant with her medication denies any chest pain Allergies No Known Allergies Allergy (Unverified 07/19/22 22:48) Home Medications: Albuterol Inhaler [Ventolin Inhaler*] 2 puff IH TID PRN 07/20/22 Buprenorphine HCl/Naloxone HCl [Buprenorphine-Nalox 8-2Mg Film] 1 film SL BID 07/20/22 Divalproex Sodium 200 mg PO DAILY 07/20/22 Famotidine 40 mg PO DAILY AFTER SUPPER 07/20/22 Levothyroxine Sodium 150 mcg PO DAILY 07/20/22 Losartan Potassium 5 mg PO BID 07/20/22 Metformin HCl [Glucophage*] 500 mg PO DAILY 07/20/22 Rosuvastatin [Crestor*] 40 mg PO DAILY 07/20/22 Umeclidinium Brm/Vilanterol Tr [Anoro Ellipta 62.5-25 Mcg INH] 1 puff IH DAILY 07/20/22 Venlafaxine HCl [Venlafaxine HCl ER] 150 mg PO DAILY 07/20/22 bisoproloL fumarate [Zebeta*] 5 mg PO DAILY AFTER SUPPER 07/20/22 Benzonatate [Tessalon Perle*] 100 mg PO TID PRN #60 cap 07/24/22 Levothyroxine [Synthroid*] 0.15 mg PO DAILYAC #60 tab 07/24/22 Potassium Phos,W-Vuiti-F-Basic [Zgjcfk-Nqri-S] 1 each PO DAILY #30 packet 07/24/22 Arformoterol Tartrate 15 mcg BID 02/09/25 Aspirin 81 mg PO DAILY 02/09/25 Furosemide [Lasix] 20 mg PO TID 02/09/25 Omeprazole 20 mg PO DAILY 02/09/25 Revefenacin [Yupelri] 175 mcg BID 02/09/25 Spironolactone [Aldactone] 25 mg PO DAILY 02/09/25 Zolpidem Tartrate [Ambien] 10 mg PO BEDTIME 02/09/25 predniSONE [Prednisone*] 10 mg PO DAILY 02/09/25 - Past Medical/Surgical History Diabetic: Yes -: Diabetes mellitus type [id number] -: COPD on home O2 -: Hypertension -: Hyperlipidemia -: CHFunknown EF -: Hypothyroidism -: Tubal ligation -: Hernia repair -: Back surgery Psychosocial/ Personal History: Lives at home, alone - Family History Mother Medical History: Cancer Father Medical History: Cancer Brother Medical History: Diabetes - Social History Smoking Status: Unknown if ever smoked Alcohol use: No CD- Drugs: No Caffeine use: Yes Review of Systems 10-point ROS is otherwise unremarkable Physical Examination Temp Pulse Resp BP Pulse Ox 98.2 F 103 H 16 151/81 H 93 02/10/25 08:00 02/10/25 08:00 02/10/25 08:00 02/10/25 08:00 02/10/25 08:00 General: Alert, Oriented x3 HEENT: Atraumatic, Other Respiratory: Clear to auscultation bilaterally, Diminished Cardiovascular: No edema, Regular rate/rhythm, Normal S1 S2 Gastrointestinal: Normal bowel sounds, Soft and benign Laboratory Data (last 24 hrs) 02/09/25 02/09/25 02/09/25 15:26 15:26 15:26 WBC 14.70 H Hgb 12.0 Hct 36.8 Plt Count 361 PT 12.5 INR 1.11 Sodium 135 L Potassium 3.4 L BUN 32 H Creatinine 1.15 H Glucose 175 H Magnesium 1.7 Total Bilirubin 0.2 AST 19 ALT 28 Alkaline Phosphatase 67 - Problems (1) COPD exacerbation Current Visit: Yes Status: Acute Plan: Patient is 65 years of age with a history of COPD admitted with an exacerbation her chest x-ray shows COPD changes patient is compliant with her medication labs chemistries reviewed white count is now normal admitted with hypoxic hypercapnic respiratory failure currently patient's vital signs are stable she is feeling better international exchange coordinator to p.o. prednisone add p.o. antibiotic for exacerbation possible discharge a.m. follow-up with me next week
[2025-02-10] MEDS: AMOX/K CLAV 500 MG TAB PO SCH (12:53)
[2025-02-10] MEDS: BISOPROLOL 5 MG TABLET PO SCH (16:30)
[2025-02-10] MEDS: INSULIN REGULAR (HUMAN) 100 UNIT/ML SQ SCH (16:30)
[2025-02-10] MEDS: DIVALPROEX DR 250 MG TAB PO SCH (16:30)
[2025-02-10] MEDS: predniSONE 20 MG TAB PO SCH (20:28)
[2025-02-10] MEDS: LOSARTAN POTASSIUM 50 MG TABLET PO SCH (20:28)
[2025-02-10] MEDS: ZOLPIDEM TARTRATE 10 MG TABLET PO SCH (20:28)
[2025-02-11] MEDS: METFORMIN HCL 500 MG TAB PO SCH (06:15)
[2025-02-11] MEDS: LEVOTHYROXINE SOD 0.075 MG TAB PO SCH (06:15)
[2025-02-11 06:20] LABS: Anion Gap 8.2 mEq/L (5.0-15.0); BUN Blood Urea Nitrogen 22.0 mg/dL (7-18); Glucose Level 190.0 mg/dL (74-106); Magnesium 2.2 mg/dL (1.6-2.4); Potassium 4.2 mEq/L (3.5-5.1)
[2025-02-11] MEDS: ALBUTEROL 2.5 MG/3 ML NEB SOL NEB PRN (07:15)
[2025-02-11] MEDS: VENLAFAXINE HCL XR 75 MG CAP PO SCH (07:49)
[2025-02-11] MEDS: ROSUVASTATIN 10 MG TAB PO SCH (07:49)
[2025-02-11] MEDS: ASPIRIN 81 MG CHEWABLE TABLET PO SCH (07:51)
[2025-02-11] MEDS: SPIRONOLACTONE 25 MG TABLET PO SCH (07:51)
[2025-02-11] MEDS ORDERED: HOME MED 1 EA UNK (Umeclidinium Brm/Vilanterol Tr [Anoro Ellipta 62.5-25 Mcg Inh] Blst.W.D IH SCH (09:00)
[2025-02-11] MEDS ORDERED: HOME MED 1 EA UNK (Levothyroxine Sodium [Levothyroxine Sodium] 150 MCG Capsule) PO SCH (09:00)
--- NOTE | 2025-02-11 09:26 | P.PN ---
Date of Service: 02/11/25 Subjective: feels some slightly improvement but still feels dyspneic, weak with some SOB with exertion feels better after breathing treatments doesn't feel worse afebrile Physical Exam: Gen: Alert, Oriented, NAD CV: Sinus Tachycardia HR 100-110s, no edema Pulm: Nonlabored respirations on 4L NC, wheeze Abdomen: Soft, nontender, nondistended Neuro: Normal strength, normal affect Problem List: Acute on chronic hypoxic respiratory failure secondary to acute on chronic COPD exacerbation (on 4L NC at home) Hypokalemia Hyponatremia, resolved Hypertension Hyperlipidemia NIDDM2 Acute on chronic hypoxic respiratory failure secondary to acute on chronic COPD exacerbation (on 4L NC at home) on admission, presents with worsening shortness of breath. CXR negative. ABG on admission with mildly elevated PCO2, HCO3 ~baseline O2 settings. Uses ~4L NC at home per notes. Duonebs, home inhalers Pulm consulted continue PO prednisone, oral augmentin Hypokalemia Hyponatremia, resolved monitor and replete as needed telemetry Hypertension Hyperlipidemia NIDDM2 confirm home meds, restart as appropriate accu-cheks, SSI VTE: Lovenox Code: Full Dispo: Home, ~1 day Pending improvement of dyspnea/wheeze
[2025-02-11] MEDS: BUPRENORPHINE NALOX SL SCH (21:00)
[2025-02-12 06:52] LABS: Anion Gap 6.3 mEq/L (5.0-15.0); BUN Blood Urea Nitrogen 23.0 mg/dL (7-18); Glucose Level 187.0 mg/dL (74-106); Magnesium 2.1 mg/dL (1.6-2.4); Potassium 4.3 mEq/L (3.5-5.1)
--- NOTE | 2025-02-12 11:55 | P.DS ---
Admission Date: 02/09/25 Discharge Date: 02/12/25 Disposition: ROUTINE DISCHARGE Discharge Condition: GOOD Reason for Admission: SOB Consultations: Pulmonology - Dr. Carrero Brief History of Present Illness: 65yo F, PMH: COPD, CHF, diabetes, hypertension Patient was brought to ER with with difficulty. Started 2 to 3 days ago and has been progressively getting worse. Denies any fever or chills. No nausea vomiting or diarrhea. Denies any chest pain. Associated with cough with mucoid expectoration. No sick contacts. Patient was assessed in the ER and was admitted for further management of COPD exacerbation Hospital Course: Problem List: Acute on chronic hypoxic respiratory failure secondary to acute on chronic COPD exacerbation (on 4L NC at home) Hypokalemia Hyponatremia, resolved Hypertension Hyperlipidemia [id number] Physician discharge instructions: Patient presented with worsening shortness of breath secondary to acute on chronic COPD exacerbation. Chest xray on admission showed COPD changes. Labwork on admission was unremarkable. She had improvement with nebulizer treatments and steroids. Dr. Carrero (pulm) was consulted and had recommended patient complete 1 week of oral augmentin as a precaution due to risk of infection in chronic COPD patients, in addition to 3 more days oral prednisone. Patient was feeling better, breathing more comfortably on her home oxygen settings, afebrile without leukocytosis and was deemed stable for discharge. Recommend following up with Dr. Carrero, rhia in 1 week for further management. Medications: Prednisone 20 mg for 3 days Augmentin for 1 week Follow up: PCP 3-[address] Carrero in 1 week Please call to schedule / confirm appointments Physical Exam: Gen: Alert, Oriented, NAD CV: regular rate and rhythm, no edema Pulm: Nonlabored respirations on 4L NC (baseline O2) Abdomen: Soft, nontender, nondistended Neuro: Normal strength, normal affect Vital Signs/Physical Exam: Temp Pulse Resp BP Pulse Ox 98.3 F 77 18 140/84 98 02/12/25 08:00 02/12/25 08:00 02/12/25 08:00 02/12/25 08:00 02/12/25 08:00 Laboratory Data at Discharge: WBC 8.80 thou/uL (4.3-10.9) 02/10/25 05:00 Hgb 10.7 g/dL (12.0-15.0) L D 02/10/25 05:00 Hct 32.1 % (36.0-45.0) L 02/10/25 05:00 Plt Count 242 thou/uL (152-406) D 02/10/25 05:00 PT 12.5 SECONDS (10-13.0) 02/09/25 15:26 INR 1.11 02/09/25 15:26 Sodium 135 mEq/L (136-145) L 02/12/25 05:54 Potassium 4.3 mEq/L (3.5-5.1) 02/12/25 05:54 BUN 23 mg/dL (7-18) H 02/12/25 05:54 Creatinine 0.78 mg/dL (0.55-1.02) 02/12/25 05:54 Glucose 187 mg/dL (74-106) H 02/12/25 05:54 Phosphorus 2.5 mg/dL (2.5-4.9) 02/11/25 05:40 Magnesium 2.1 mg/dL (1.6-2.4) 02/12/25 05:54 Total Bilirubin 0.2 mg/dL (0.2-1.0) 02/10/25 05:00 AST 16 U/L (15-37) 02/10/25 05:00 ALT 23 U/L (13-56) 02/10/25 05:00 Alkaline Phosphatase 57 U/L (45-117) 02/10/25 05:00 Home Medications: Albuterol Inhaler [Ventolin Inhaler*] 2 puff IH TID PRN 07/20/22 Buprenorphine HCl/Naloxone HCl [Buprenorphine-Nalox 8-2Mg Film] 1 film SL BID 07/20/22 Divalproex Sodium 250 mg PO DAILY 07/20/22 Famotidine 40 mg PO DAILY AFTER SUPPER 07/20/22 Levothyroxine Sodium 150 mcg PO DAILY 07/20/22 Losartan Potassium 50 mg PO BID 07/20/22 Metformin HCl [Glucophage*] 500 mg PO DAILY 07/20/22 Rosuvastatin [Crestor*] 40 mg PO DAILY 07/20/22 Umeclidinium Brm/Vilanterol Tr [Anoro Ellipta 62.5-25 Mcg INH] 1 puff IH DAILY 07/20/22 Venlafaxine HCl [Venlafaxine HCl ER] 150 mg PO DAILY 07/20/22 bisoproloL fumarate [Zebeta*] 5 mg PO DAILY AFTER SUPPER 07/20/22 Benzonatate [Tessalon Perle*] 100 mg PO TID PRN #60 cap 07/24/22 Levothyroxine [Synthroid*] 0.15 mg PO DAILYAC #60 tab 07/24/22 Potassium Phos,V-Dhiga-T-Basic [Fzcqjj-Zrnf-N] 1 each PO DAILY #30 packet 07/24/22 Arformoterol Tartrate 15 mcg BID 02/09/25 Aspirin 81 mg PO DAILY 02/09/25 Furosemide [Lasix*] 20 mg PO TID 02/09/25 Omeprazole 20 mg PO DAILY 02/09/25 Revefenacin [Yupelri] 175 mcg BID 02/09/25 Spironolactone [Aldactone] 25 mg PO DAILY 02/09/25 Zolpidem Tartrate [Ambien] 10 mg PO BEDTIME 02/09/25 predniSONE [Prednisone*] 10 mg PO DAILY 02/09/25 Amox/Clavulanate [Augmentin 500-125 mg Tab*] 500 mg PO BID 7 Days #14 tab 02/12/25 predniSONE [Prednisone*] 20 mg PO BID 3 Days #6 tab 02/12/25 New Medications: Amox/Clavulanate [Augmentin 500-125 mg Tab*] 500 mg PO BID 7 Days #14 tab predniSONE [Prednisone*] 20 mg PO BID 3 Days #6 tab Physician Discharge Instructions: Physician discharge instructions: Patient presented with worsening shortness of breath secondary to acute on chronic COPD exacerbation. Chest xray on admission showed COPD changes. Labwork on admission was unremarkable. She had improvement with nebulizer treatments and steroids. Dr. Carrero (pulm) was consulted and had recommended patient complete 1 week of oral augmentin as a precaution due to risk of infection in chronic COPD patients, in addition to 3 more days oral prednisone. Patient was feeling better, breathing more comfortably on her home oxygen settings, afebrile without leukocytosis and was deemed stable for discharge. Recommend following up with Dr. Carrero, rhia in 1 week for further management. Medications: Prednisone 20 mg for 3 days Augmentin for 1 week Follow up: PCP 3-[address] Carrero in 1 week Please call to schedule / confirm appointments Followup: Devante Carrero MD [ACTIVE - CAN ADMIT] - 1 Week Simon Harper DO [Primary Care Provider] - Time spent managing pt's care (in minutes): 45
[2025-02-12 12:18] VITALS: BP 151/85; TEMP 98.2
[2025-02-12 12:34] VITALS: O2SAT 94
== END 2025-02-12 13:50 | disposition home or self-care (01) | DRG 189 ==
LOC: ER 14:55 → ERHOLD 18:53 → 4TH 19:34
PROVIDERS: ADMIT Family Medicine; ATTEND Hospitalist
PROC: 4A033R1 Measurement of Arterial Saturation, Peripheral, Percutaneous Approach (ICD-10-PCS; principal; 2025-02-09)
DX: J96.21 Acute and chronic respiratory failure with hypoxia (principal); J44.1 Chronic obstructive pulmonary disease with (acute) exacerbation; E87.1 Hypo-osmolality and hyponatremia; J96.22 Acute and chronic respiratory failure with hypercapnia; I10 Essential (primary) hypertension; E87.6 Hypokalemia; E78.5 Hyperlipidemia, unspecified; E03.9 Hypothyroidism, unspecified; E11.9 Type 2 diabetes mellitus without complications; Z66 Do not resuscitate; Z60.2 Problems related to living alone; Z79.84 Long term (current) use of oral hypoglycemic drugs; Z79.82 Long term (current) use of aspirin; Z79.52 Long term (current) use of systemic steroids; Z79.899 Other long term (current) drug therapy; Z87.891 Personal history of nicotine dependence; Z11.52 Encounter for screening for COVID-19
CPT/HCPCS: 36415; 36600; 71045; 80048; 80053; 80076; 82805; 82947; 83735; 83880; 84100; 84132; 84484; 85025; 85379; 85610; 87428; 93005; 94640; 94760; 94762; 96374; 99285; J1650; J1815; J2919; J3475; J7512; J7605; J7613; J7614; J7644